=== PATIENT | female | born 2000 | race Hispanic/Latino ===

== ENCOUNTER 2018-05-29 14:02 | Emergency (ER) | payer BC, OTHER ==
--- OUTSIDE RECORDS SUMMARY | 2018-05-29 14:10 | XMS REPORT ---
:2000 [facility] Kavin Waddell. [address] [place] [address] Care Team Providers Name Role Phone Unavailable Unavailable Unavailable Payers Payer Name Policy Type Policy Number Effective Date Expiration Date Problems This patient has no known problems. Allergies, Adverse Reactions, Alerts Allergy Allergy Status Severity Reaction(s) Onset Inactive Treating Comments Name Type Date Date Clinician No Known DA Active U 2018-04 Allergies 18 00:00:0 0 Medications This patient has no known medications. Results Test Description Test Time Test Comments Text Results Atomic Results Result Comments - US PREG NH 2018-05-09 Patient Name: PAM EASTON Unit No: [id number] TRANSVAGINAL 13:02:00 EXAMS: CPT CODE: [id number] PREG NH TRANSVAGINAL [address] [facility] [address], [place] [address] LIMITED OBSTETRICAL ULTRASOUND REPORT Pat. Name: PAM EASTON Pat. No: [id number] Study Date: 05/09/2018 11:33am , Age: 04 2000, 17 Pregnancies: 2, Para 0 LMP: 01/12/2018 GA by LMP: 16w5d GA by US: 15w5d GA Selected: 16w5d (LMP) ANIYA: 10/19/2018 Referring MD: Jaiden Arana Implementation Project Manager: Danielle Webb RDMS, RVT CPT4: USPRUTTRVG Admitting MD: Jaiden Arana Hist/Ind: SCAN 1 VAG. BLEEDING MEASUREMENTS AGE GROWTH EVALUATION Measurement GA Range Srce %for GA Ratios ----- ---- ------- BPD 3.3 cm 15w6d (34j4w-40k2w) Hadl BPD 14% FL/BPD 0.58 HC 12.0 cm 15w6d (42p0b-38y6h) Hadl HC 23% FL/AC 0.18 APD 3.3 cm APD HC/AC 1.16 (1.09 - 1.28) TAD 3.3 cm TAD CI 0.85 (0.70 - 0.86) AC 10.4 cm 16w0d (64j8f-80b3m) Hadl AC 32% FL 1.9 cm 15w3d (32c5h-25f2v) Hadl FL <05 HL 1.9 cm 15w4d (91s9h-39o6p) Leeroy HL 31% GA for sonogram 15w5d (22w0g-33x5g) Weight Estimate: based on (HL,HC,AC,FL) Avg Weight: 142 gm (121-162) Hadlock : 0lbs, 4oz Cervical Length: 4.7 cm Heart Rate: 165 bpm MATERNAL ANATOMY Ovaries LxHxW (cm) Right 1.3 x 1.3 x 2.4 Vol: 2.1cc Left 4.1 x 2.6 x 2.0 Vol: 11.2cc Ovarian Cysts LxHxW (cm) R1: 1.3 x 1.3 x 2.4 Desc: Corpus Luteum CLINICAL SUMMARY Type of Gestation: Wisdom Intrauterine in breech presentation. size is slightly less than expected based on LMP Correlate with office scan and FU US motion and organs seen: [facility] NAME: PAM EASTON Radiology Department PHYS: Jaiden De Leon [address] : 2000 AGE: 17 SEX: [place] [address] LOC: AngelaCECE PHONE #: [phone] EXAM DATE: 05/09/2018 STATUS: DEP ER FAX #: [phone] RAD NO: Page 1 Signed Report (CONTINUED) Patient Name: PAM EASTON Unit No: [id number] EXAMS: CPT CODE: [id number] US PREG UT TRANSVAGINAL [address] <Continued> heart motion seen Placental location: Posterior Right lateral low lying Placental maturity : Grade 1 There is no evidence of placenta previa. Amniotic fluid volume is normal. Uterus and adnexa: No significant abnormalities seen Uterus and adnexa: No sonographic evidence of abruption. Antonia Mendes M.D. Electronic Signature 05/09/2018 01:02pm at 1302 Reported and signed by: Antonia Mendes MD CC: Jaiden Arana MD Technologist: Danielle Webb RDMS, RVT; Kimbe Probe: [id number] Trnscrbd D/ (1302) [email or web address] Orig Print D/T: S: 05/12/2018 (154) [facility] NAME: PAM EASTON Radiology Department PHYS: GUTAL. - Jaiden Arana [address] : 2000 AGE: 17 SEX: F [place] [address] LOC: Doris.ERS PHONE #: [phone] EXAM DATE: 05/09/2018 STATUS: [facility] ER FAX #: [phone] RAD NO: Page 2 Signed Report Patient Name: PAM EASTON Unit No: [id number] EXAMS: CPT CODE: [id number] US PREG UT TRANSVAGINAL [address] <Continued> [facility] NAME: PAM EASTON Radiology Department PHYS: GUTAL.01 - Jaiden Arana [address] : 2000 AGE: 17 SEX: F [place] [address] LOC: Doris.ERS PHONE #: [phone] EXAM DATE: 05/09/2018 STATUS: NESSA ER FAX #: [phone] RAD NO: Page 3 Signed Report - 2018-05-09 Patient Name: PAM EASTON Unit No: [id number] FLW 13:02:00 EXAMS: CPT [place]: [place] [id number] [address] [facility] [address], [place] [address] LIMITED OBSTETRICAL ULTRASOUND REPORT Pat. Name: PAM EASTON Pat. No: [id number] Study Date: 05/09/2018 11:33am , Age: 04 2000, 17 Pregnancies: 2, Para 0 LMP: 01/12/2018 GA by LMP: 16w5d GA by US: 15w5d GA Selected: 16w5d (LMP) ANIYA: 10/19/2018 Referring MD: JAIDEN ARANA Implementation Project Manager: Danielle Webb RDMS, T CPT4: USPREGLTD Admitting MD: JAIDEN ARANA Hist/Ind: SCAN 1 VAG. BLEEDING MEASUREMENTS AGE GROWTH EVALUATION Measurement GA Range Srce %for GA Ratios ----- ---- ------- BPD 3.3 cm 15w6d (24m4g-91e5e) Hadl BPD 14% FL/BPD 0.58 HC 12.0 cm 15w6d (56x4v-46t7b) Hadl HC 23% FL/AC 0.18 APD 3.3 cm APD HC/AC 1.16 (1.09 - 1.28) TAD 3.3 cm TAD CI 0.85 (0.70 - 0.86) AC 10.4 cm 16w0d (84s5r-20a2s) Hadl AC 32% FL 1.9 cm 15w3d (79n5s-08g4w) Hadl FL <05 HL 1.9 cm 15w4d (79o5n-11z5a) Leeroy HL 31% GA for sonogram 15w5d (69r2q-89k6r) Weight Estimate: based on (HL,HC,AC,FL) Avg Weight: 142 gm (121-162) Hadlock : 0lbs, 4oz Cervical Length: 4.7 cm Heart Rate: 165 bpm MATERNAL ANATOMY Ovaries LxHxW (cm) Right 1.3 x 1.3 x 2.4 Vol: 2.1cc Left 4.1 x 2.6 x 2.0 Vol: 11.2cc Ovarian Cysts LxHxW (cm) R1: 1.3 x 1.3 x 2.4 Desc: Corpus Luteum CLINICAL SUMMARY Type of Gestation: Wisdom Intrauterine in breech presentation. size is slightly less than expected based on LMP Correlate with office scan and FU US motion and organs seen: [facility] NAME: JEMMAPAM Radiology Department PHYS: AMANDA. Jaiden Arana [address] : 2000 AGE: 17 SEX: Doris [place], [place] [address] LOC: DIANA PHONE #: [phone] EXAM DATE: 05/09/2018 STATUS: REG ER FAX #: [phone] RAD NO: Page 1 Signed Report (CONTINUED) Patient Name: PAM EASTON Unit No: [id number] EXAMS: CPT CODE: [id number] [address] <Continued> heart motion seen Placental location: Posterior Right lateral low lying Placental maturity : Grade 1 There is no evidence of placenta previa. Amniotic fluid volume is normal. Uterus and adnexa: No significant abnormalities seen Uterus and adnexa: No sonographic evidence of abruption. Antonia Mendes M.D. Electronic Signature 05/09/2018 01:02pm at 1302 Reported and signed by: Antonia Mendes MD CC: Jaiden Arana MD Technologist: Danielle Webb, JAVAN, RVT; Harmony Probe: Trnscrbd D/ (1302) [email or web address] Orig Print D/T: S: 05/09/2018 (1302) [facility]: PAM EASTON Radiology Department PHYS: SINDHU - Jaiden Arana [address] : 2000 AGE: 17 SEX: F [place], [place] [address] LOC: AngelaERS PHONE #: [phone] EXAM DATE: 05/09/2018 STATUS: REG ER FAX #: [phone] RAD NO: Page 2 Signed Report Patient Name: PAM EASTON Unit No: [id number] EXAMS: CPT [place]: [id number] [place] [address] <Continued> [facility]: PAM EASTON Radiology Department PHYS: AMANDA.Otf - Jaiden Arana [address] : 2000 AGE: 17 SEX: [place] [address] LOC: Doris.ERS PHONE #: [phone] EXAM DATE: 05/09/2018 STATUS: REG ER FAX #: [phone] RAD NO: Page 3 Signed Report UA RFLX MICR CULT IF INDICATED 2018-05-09 11:42:00 Test Item Value Reference Range Comments UA COLOR (test code=COLU) STRAW YELLOW UA APPEARANCE (test code=APPU) CLEAR CLEAR UA GLUCOSE DIPSTICK (test code=DGLUU) NEGATIVE NEG UA BILIRUBIN DIPSTICK (test code=BILU) NEGATIVE NEG UA KETONE DIPSTICK (test code=KETU) NEGATIVE NEG UA SPECIFIC GRAVITY (test code=SGU) 1.003 1.001-1.035 UA BLOOD DIPSTICK (test code=DELROY) 1+ NEG UA PH DIPSTICK (test code=TOREY) 7.0 5-9 UA PROTEIN DIPSTICK (test code=PROU) 1+ NEG UA UROBILINIOGEN DIPSTICK (test code=URO) NEGATIVE mg/dL NEG UA NITRITE DIPSTICK (test code=GERONIMO) NEG NEG UA LEUKOCYTE ESTERASE DIPSTICK (test code=LEUU) 1+ NEG UA WBC (test code=WBCU) 0-2 #/hpf NONE SEEN UA RBC (test code=RBCU) 0-2 #/hpf NONE SEEN UA EPITHELIAL CELLS (test code=EPIU) RARE #/HPF RARE-FEW UA BACTERIA (test code=BACU) RARE /HPF RARE-FEW UA MUCUS (test code=MUCU) RARE NONE SEEN CBC W/AUTO [id number] 11:38:00 Test Item Value Reference Range Comments WHITE BLOOD CELL (test code=WBC) 9.9 K/mm3 6.6-12.1 RED BLOOD CELL (test code=RBC) 4.46 M/mm3 3.45-5.01 HEMOGLOBIN (test code=HGB) 13.3 g/dL 10.7-13.9 HEMATOCRIT (test code=HCT) 40.0 % 32.1-42.1 MEAN CELL VOLUME (test code=MCV) 90 fL 84.1-94.8 MEAN CELL HGB (test code=MCH) 29.8 pg 27-35 MEAN CELL HGB CONCETRATION (test code=MCHC) 33.3 gm/dL 32.2-34.1 RED CELL DISTRIBUTION WIDTH (test code=RDW) 12.7 % 12.4-16.5 PLATELET COUNT (test code=PLT) 144 K/mm3 133-385 IMMATURE PLATELET FRACTION (test code=IPF) 0.0 % 0.0-10.8 MEAN PLATELET VOLUME (test code=MPV) 11.1 fl 9.1-12.7 NEUTROPHIL % (test code=NT%) 74.2 % 56.5-79.4 LYMPHOCYTE % (test code=LY%) 16.7 % 14.3-34.3 MONOCYTE % (test code=MO%) 6.9 % 5.1-10.4 EOSINOPHIL % (test code=EO%) 0.6 % 0.1-3.0 BASOPHIL % (test code=BA%) 0.4 % 0.1-1.0 NEUTROPHIL # (test code=NT#) 7.4 K/mm3 LYMPHOCYTE # (test code=LY#) 1.7 K/mm3 MONOCYTE # (test code=MO#) 0.7 K/mm3 EOSINOPHIL # (test code=EO#) 0.06 K/mm3 BASOPHIL # (test code=BA#) 0.0 K/mm3 RBC MORPHOLOGY REQUIRED (test code=RBCM) NORMAL NORMAL PLATELET MORPHOLOGY REQUIRED (test code=PLTMR) NORMAL NORMAL
[2018-05-29 15:38] LABS: Absolute Lymphocytes (CBC) 1.7 K/uL (0.7-4.9); Absolute Monocytes 0.8 K/uL (0.1-1.3); Absolute Neutrophil 7.7 K/uL (1.8-8.0); Basophils % 0.6 % (0-1.3); Eosinophils % 1.1 % (0-4.4); Hematocrit 36.1 % (36.0-45.0); Lymphocytes % 16.4 % (15.3-44.8); MPV 10.4 fL (7.6-11.3); Monocytes % 7.6 % (3.3-12.3); RBC Red Blood Cell Count 4.03 M/uL (3.86-4.86)
[2018-05-29 15:54] LABS: Protime INR 0.97
[2018-05-29 16:05] LABS: ALT/SGPT 34 U/L (12-78); AST/SGOT 27 U/L (15-37); Albumin 2.7 g/dL (3.4-5.0); Alkaline Phosphatase 64 U/L (45-117); BUN Blood Urea Nitrogen 10 mg/dL (7-18); Bicarbonate 22 mmol/L (21-32); Bilirubin Direct < 0.1 mg/dL (0-0.2); Bilirubin Total 0.2 mg/dL (0.2-1.0); Glucose Level 105 mg/dL (74-106); NT PRO-BNP 13 pg/mL (<125); Potassium 3.9 mmol/L (3.5-5.1); Protein, Total 6.4 g/dL (6.4-8.2); Sodium Level 140 mmol/L (136-145); Troponin (Emerg Dept Use Only) 0.02 ng/mL (0.0-0.045)
[2018-05-29 16:11] LABS: Urine Blood TRACE (NEG); Urine Glucose NEGATIVE (NEG); Urine Protein 2+ (NEG); Urine Specific Gravity >1.030 (1.005-1.030); Urine pH 6.5 (5.0-7.0)
[2018-05-29 16:12] LABS: Urine Specific Gravity >1.030 (1.005-1.030)
--- NOTE | 2018-05-29 17:03 | EKG ---
Test Date: 2018-05-29 Test Time: 14:17:37 Helpdesk Analyst: MATHIEU MEASUREMENT RESULTS: Intervals: Rate: 91 UT: 148 QRSD: 82 QT: 334 QTc: 410 Gore: P: 56 UT: 148 QRS: 79 T: 29 INTERPRETIVE STATEMENTS: Normal sinus rhythm Normal ECG No previous ECG available for comparison Electronically Signed On 05-29-18 17:03:17 TRACK GRINDER by Poli Kaiser
[2018-05-29 17:04] LABS: Urine Bacteria 20-50 /HPF (<20); Urine RBC NONE SEEN /HPF (NONE SEEN)
[2018-05-29 17:05] LABS: Urine Culture Reflex Order REFLEXED
--- NOTE | 2018-05-29 17:16 | RAD REPORT ---
EXAM DESCRIPTION: CT - Chest For Pe Angio - 05/29/2018 4:59 pm CLINICAL HISTORY: Chest pain. SOB COMPARISON: No comparisons TECHNIQUE: CT angiogram of the pulmonary arteries was performed with MIP. All CT scans are performed using dose optimization technique as appropriate and may include automated exposure control or mA/KV adjustment according to patient size. FINDINGS: No evidence of pulmonary thromboembolism. No acute aortic finding demonstrated. The lungs are clear. No significant pericardial or pleural fluid. Soft tissue mass is present in the superior anterior med iastinum measuring approximately 4.6 x 3.7 cm. No concerning bony finding. IMPRESSION: No evidence of pulmonary thromboembolism. No acute lung findings. Anterior mediastinal mass is present 4.6 x 3.7 cm. This may be related to thymoma or lymphoma.
--- NOTE | 2018-05-29 17:18 | RAD REPORT ---
EXAM DESCRIPTION: RAD - Chest Single View - 05/29/2018 5:08 pm CLINICAL HISTORY: SOB Chest pain. COMPARISON: <Comparisons> FINDINGS: Portable technique limits examination quality. The lungs are underinflated but grossly clear. The heart is normal in size. No displaced fractures. IMPRESSION: No acute intrathoracic process suspected.
--- NOTE | 2018-05-29 18:42 | EDPHYS ---
Physician Documentation [facility] Name: Oscar Gong Age: 17 yrs Sex: Female : 2000 Arrival Date: 05/29/2018 Time: 14:06 Bed 27 Private MD: ED Physician Sandoval Lakhani HPI: 05/29 18:32 This 17 yrs old Female presents to ER via Ambulatory with complaints of 19 wks wa , Chest Pain, Shortness Of Breath, Headache. 18:32 The patient or guardian reports chest pain that is located primarily in the substernal wa area. The pain does not radiate. Associated signs and symptoms: Pertinent positives: lower extremity swelling, shortness of breath, Pertinent negatives: abdominal pain, cough, dizziness, headache. The chest pain is described as a pressure. Duration: The patient or guardian reports a single episode, that is still ongoing. Modifying factors: The symptoms are alleviated by nothing. the symptoms are aggravated by nothing. Severity of pain: At its worst the pain was moderate in the emergency department the pain is unchanged. The patient has not experienced similar symptoms in the past. The patient has not recently seen a physician. 19 weeks preg. OB - Dr. Phillips. CANNONEER: 14:14 LMP 01/12/2018 Historical: - Allergies: 14:13 No Known Allergies; hj - Home Meds: 14:13 Vitamin Oral [Active]; hj - PMHx: 14:13 None; hj - PSHx: 14:13 Cholecystectomy; Tonsillectomy; hj - Immunization history:: Adult Immunizations up to date. - Social history:: Smoking status: Patient/guardian denies using tobacco, Patient/guardian denies using alcohol. - Ebola Screening: : Patient negative for fever greater than or equal to 101.5 degrees Fahrenheit, and additional compatible Ebola Virus Disease symptoms Patient denies exposure to infectious person Patient denies travel to an Ebola-affected area in the 21 days before illness onset. - Family history:: not pertinent. - Hospitalizations: : No recent hospitalization is reported. ROS: 18:34 Constitutional: Negative for fever, chills, and weight loss, Eyes: Negative for injury, wa pain, redness, and discharge, ENT: Negative for injury, pain, and discharge, Neck: Negative for injury, pain, and swelling, Abdomen/GI: Negative for abdominal pain, nausea, vomiting, diarrhea, and constipation, Back: Negative for injury and pain, : Negative for injury, bleeding, discharge, and swelling, Skin: Negative for injury, rash, and discoloration, Neuro: Negative for headache, weakness, numbness, tingling, and seizure, Psych: Negative for depression, anxiety, suicide ideation, homicidal ideation, and hallucinations. 18:34 Cardiovascular: Positive for chest pain, edema, Negative for orthopnea, palpitations. 18:34 Respiratory: Positive for shortness of breath, at rest. Negative for cough, hemoptysis, orthopnea, pleurisy, wheezing. 18:34 All other systems are negative. Exam: 18:35 Constitutional: This is a well developed, well nourished patient who is awake, alert, wa and in no acute distress. Head/Face: Normocephalic, atraumatic. Eyes: Pupils equal round and reactive to light, extra-ocular motions intact. Lids and lashes normal. Conjunctiva and sclera are non-icteric and not injected. Cornea within normal limits. Periorbital areas with no swelling, redness, or edema. ENT: Nares patent. No nasal discharge, no septal abnormalities noted. Tympanic membranes are normal and external auditory canals are clear. Oropharynx with no redness, swelling, or masses, exudates, or evidence of obstruction, uvula midline. Mucous membranes moist. Neck: Trachea midline, no thyromegaly or masses palpated, and no cervical lymphadenopathy. Supple, full range of motion without nuchal rigidity, or vertebral point tenderness. No Meningismus. Chest/axilla: Normal chest wall appearance and motion. Nontender with no deformity. No lesions are appreciated. Abdomen/GI: Soft, non-tender, with normal bowel sounds. No distension or tympany. No guarding or rebound. No evidence of tenderness throughout. Back: No spinal tenderness. No costovertebral tenderness. Full range of motion. Skin: Warm, dry with normal turgor. Normal color with no rashes, no lesions, and no evidence of cellulitis. Neuro: Awake and alert, GCS 15, oriented to person, place, time, and situation. Cranial nerves II-XII grossly intact. Motor strength 5/5 in all extremities. Sensory grossly intact. Cerebellar exam normal. Normal gait. Psych: Awake, alert, with orientation to person, place and time. Behavior, mood, and affect are within normal limits. 18:35 Cardiovascular: Rate: normal, Rhythm: regular, Pulses: no pulse deficits are appreciated, Heart sounds: normal, Edema: is not appreciated, JVD: is not appreciated. 18:35 Respiratory: the patient does not display signs of respiratory distress, Respirations: normal, Breath sounds: are clear throughout, Respiratory rate: normal 18:35 Musculoskeletal/extremity: Extremities: grossly normal except: 1+ edema bilateral ankles. Vital Signs: 14:14 BP 131 / 63; Pulse 97; Resp 18; Temp 98.5(TE); Pulse Ox 99% on R/A; Weight 81.19 kg; hj Height 5 ft. 1 in. (154.94 cm); Pain 6/10; 15:41 BP 126 / 54; Pulse 79; Resp 18; Pulse Ox 100% on R/A; Pain 5/10; mg2 17:31 BP 122 / 62; Pulse 93; Resp 18; Pulse Ox 100% on R/A; mg2 18:01 BP 123 / 47; Pulse 89; Resp 18; Pulse Ox 100% on R/A; mg2 18:59 BP 133 / 87; Pulse 100; Resp 18; Pulse Ox 100% on R/A; mg2 20:10 BP 119 / 48; Pulse 102; Resp 18; Pulse Ox 100% on R/A; mg2 14:14 Body Mass Index 33.82 (81.19 kg, 154.94 cm) MDM: 15:52 Patient medically screened. sd 18:36 Differential diagnosis: G2,P1 at 19 weeks with chest pain and SOB. r/o PE. r/o wa pre-eclampsia. pt's BP mildly elevated. Data reviewed: vital signs, nurses notes. Test interpretation: by ED physician or midlevel provider: labs noted for 2+ proteinuria and low platelets. CXR nml. CT chest: no PE. 4.6 cm by 3.7 cm mediastinal mass. . Special discussion: concern for pre-eclampsia on this 19 week woman with proteinuria and low platelets. also mediastinal mass. I have put a call out to her OB Dr. Phillips. Awaiting a call back. Needs higher level of care. 19:25 Special discussion: accepted at [facility] for further eval. family advised. sd awaiting transport. 05/30 20:36 Test interpretation: by ED physician or midlevel provider: EKG: interpreted by me: CARLA sd 91. nml sinus. nml axis. no acute dysrhythmia . 05/29 15:20 Order name: Basic Metabolic Panel; Complete Time: 16:23 mg2 05/29 15:20 Order name: CBC with Diff; Complete Time: 16:23 mg2 05/29 15:20 Order name: LFT's; Complete Time: 16:23 mg2 05/29 15:20 Order name: Magnesium; Complete Time: 16:22 mg2 05/29 15:20 Order name: NT PRO-BNP; Complete Time: 16:22 mg2 05/29 15:20 Order name: PT-INR; Complete Time: 16:22 mg2 05/29 15:20 Order name: Troponin (emerg Dept Use Only); Complete Time: 16:22 mg2 05/29 15:29 Order name: Urine Dipstick--Ancillary (enter results); Complete Time: 16:23 05/29 15:30 Order name: Urine --Ancillary (enter results); Complete Time: 16:22 05/29 16:24 Order name: Urine Microscopic Only; Complete Time: 17:42 sd 05/29 16:25 Order name: Chest Single View XRAY; Complete Time: 17:42 sd 05/29 16:25 Order name: CT Chest For PE Angio; Complete Time: 17:41 sd 05/29 17:10 Order name: Urine Culture [facility] 05/29 14:17 Order name: EKG; Complete Time: 14:17 05/29 15:20 Order name: Cardiac monitoring; Complete Time: 15:32 mg2 05/29 15:20 Order name: EKG - Nurse/Tech; Complete Time: 15:32 mg2 05/29 15:20 Order name: IV Saline Lock; Complete Time: 15:32 mg2 05/29 15:20 Order name: Labs collected and sent; Complete Time: 15:32 mg2 05/29 15:20 Order name: O2 Per Protocol; Complete Time: 15:32 mg2 05/29 15:20 Order name: O2 Sat Monitoring; Complete Time: 15:32 mg2 05/29 18:33 Order name: FHT's; Complete Time: 18:47 iw Administered Medications: No medications were administered Disposition: 05/29/18 18:41 Transfer ordered to Other Acute Care Facility. Diagnosis are Acute Chest Pain, Acute Dyspnea, Pre-eclampsia. - Reason for transfer: Higher level of care. - Accepting physician is [facility]. - Condition is Stable. - Problem is new. - Symptoms are unchanged. Signatures: Dispatcher [employer] EDDeepa Santiago RN ANDRIA iw Mario Lee RN RN hj Appiah, William, MD MD wa Gardose, Michele, RN RN mg2 Corrections: (The following items were deleted from the chart) 05/29 15:46 15:21 Chest Single View+RAD.RAD.BRZ ordered. [facility] 20:57 18:41 05/29/2018 18:41 Transfer ordered to Other Acute Care Facility. Diagnosis is mg2 Acute Chest Pain; Acute Dyspnea; Pre-eclampsia. Reason for transfer: Higher level of care. Accepting physician is [facility]. Condition is Stable. Problem is new. Symptoms are unchanged. lavelle
--- NOTE | 2018-05-29 18:42 | ER ---
Nurse's Notes [facility] Name: Oscar Gong Age: 17 yrs Sex: Female : 2000 Arrival Date: 05/29/2018 Time: 14:06 Bed 27 Private MD: Diagnosis: Acute Chest Pain;Acute Dyspnea;Pre-eclampsia Presentation: 05/29 14:10 Presenting complaint: Patient states: LMP- 01/12/18; when i got to work today, i had a hj bad chest pain; BP- 132/70; took Tylenol and did not help and chest pain is getting worse;,reports SOB; heavy, pressure type pain; radiates to the mid back;. Transition of care: patient was not received from another setting of care. Onset of symptoms was May 29, 2018. Risk Assessment: Do you want to hurt yourself or someone else? Patient reports no desire to harm self or others. Initial Sepsis Screen: Does the patient meet any 2 criteria? No. Patient's initial sepsis screen is negative. Does the patient have a suspected source of infection? No. Patient's initial sepsis screen is negative. Care prior to arrival: None. 14:10 Method Of Arrival: Ambulatory 14:10 Acuity: DAVID 3 Triage Assessment: 14:13 General: Appears in no apparent distress. uncomfortable, Behavior is calm, cooperative, hj appropriate for age. Pain: Complains of pain in chest. Cardiovascular: Capillary refill < 3 seconds Patient's skin is warm and dry. Chest pain. 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 - Social history:: Smoking status: Patient/guardian denies using tobacco, Patient/guardian denies using alcohol. - Ebola Screening: : Patient negative for fever greater than or equal to 101.5 degrees Fahrenheit, and additional compatible Ebola Virus Disease symptoms Patient denies exposure to infectious person Patient denies travel to an Ebola-affected area in the 21 days before illness onset. - Family history:: not pertinent. - Hospitalizations: : No recent hospitalization is reported. Screenin:13 Abuse screen: Denies threats or abuse. Denies injuries from another. Nutritional hj screening: No deficits noted. Tuberculosis screening: No symptoms or risk factors identified. Fall Risk None identified. Assessment: 14:16 Pain: Pain radiates to back Pain began 4 hours ago. this AM. hj 15:38 General: Appears in no apparent distress. comfortable, Behavior is calm, cooperative. mg2 Pain: Pain: Complains of pain in chest Pain radiates to back Pain currently is 5 out of 10 on a pain scale. Quality of pain is described as aching, Pain began \T\ 0730H today Is intermittent. 15:40 Neuro: Level of Consciousness is awake, alert, obeys commands, Oriented to person, mg2 place, time, situation. Cardiovascular: Capillary refill < 3 seconds Patient's skin is warm and dry. Cardiovascular: Reports chest pain, shortness of breath. Respiratory: Airway is patent Respiratory effort is even, unlabored, Respiratory pattern is regular, symmetrical. GI: No signs and/or symptoms were reported involving the gastrointestinal system. : No signs and/or symptoms were reported regarding the genitourinary system. EENT: No signs and/or symptoms were reported regarding the EENT system. Derm: Skin is intact, is healthy with good turgor, Skin is pink, warm \T\ dry. normal. Musculoskeletal: Circulation, motion, and sensation intact. Capillary refill < 3 seconds. 17:00 Reassessment: patient sent to ct scan. mg2 19:17 Reassessment: patient informed about the need for transfer, patient agreed about the mg2 plan. 20:10 Reassessment: report called to ANDRIA Gage ,ED of [facility]. transfer mg2 form signed by the patient. Vital Signs: 14:14 BP 131 / 63; Pulse 97; Resp 18; Temp 98.5(TE); Pulse Ox 99% on R/A; Weight 81.19 kg; hj Height 5 ft. 1 in. (154.94 cm); Pain 6/10; 15:41 BP 126 / 54; Pulse 79; Resp 18; Pulse Ox 100% on R/A; Pain 5/10; mg2 17:31 BP 122 / 62; Pulse 93; Resp 18; Pulse Ox 100% on R/A; mg2 18:01 BP 123 / 47; Pulse 89; Resp 18; Pulse Ox 100% on R/A; mg2 18:59 BP 133 / 87; Pulse 100; Resp 18; Pulse Ox 100% on R/A; mg2 20:10 BP 119 / 48; Pulse 102; Resp 18; Pulse Ox 100% on R/A; mg2 14:14 Body Mass Index 33.82 (81.19 kg, 154.94 cm) hj Vitals: 18:45 Heart Tones 150. tl3 ED Course: 14:06 Patient arrived in ED. mr 14:12 Triage completed. hj 14:14 Arm band placed on left wrist. hj 14:14 Patient has correct armband on for positive identification. Placed in gown. Bed in low hj position. Call light in reach. Side rails up X 1. Adult w/ patient. shelter monitor on. 14:16 Patient maintains SpO2 saturation greater than 95% on room air. hj 14:28 EKG done, by equipment maintenance technician. reviewed by Sandoval Lakhani MD. sm3 15:18 Nikolay Nick, RN is Primary Nurse. mg2 15:20 Urine collected: clean catch specimen, clear, shirley colored. jp3 15:37 Urine --Ancillary (enter results) Sent. jp3 15:37 Urine Dipstick--Ancillary (enter results) Sent. jp3 15:41 No provider procedures requiring assistance completed. Inserted saline lock: 20 gauge mg2 in right antecubital area, using aseptic technique. Blood collected. 15:52 Sandoval Lakhani MD is Attending Physician. wa 16:39 Urine Microscopic Only Sent. mg2 16:[address] via stretcher. vm2 16:59 CT Chest For PE Angio In Process Unspecified. EDMS 16:59 CT completed. Patient tolerated procedure well. Patient moved to radiology. vm2 17:10 Chest Single View XRAY In Process Unspecified. 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 Kar goldman for patient transfer consultation. 20:50 Patient transferred, IV remains in place. mg2 Administered Medications: No medications were administered Outcome: 18:41 ER care complete, transfer ordered by . wa 20:50 Transferred by ground EMS Transfer form completed. Note: to [facility], mg2 [place] 20:50 Condition: stable 20:50 Instructed on the need for transfer, Demonstrated understanding of instructions. 20:57 Patient left the ED. mg2 Signatures: Dispatcher [employer] Jody BushMario, RN RN QuiñonesRadha chi 2 Sandoval Lakhani MD MD wa Lowrey, Tammy, RN RN tl3 Magda Persaud Michele, RN RN [facility] Rae Gee 3 Ronen Mckeon jp3 Corrections: (The following items were deleted from the chart) 14:16 14:14 Pulse 97bpm; Resp 18bpm; Pulse Ox 99% RA; Temp 98.5F Temporal; 81.19 kg; Height 5 hj ft. 1 in.; BMI: 33.8; Pain 6/10; hj 15:41 15:38 Pain: mg2 mg2
== END 2018-05-29 20:57 ==
LOC: ER 14:02
DX: O14.92 Unspecified pre-eclampsia, second trimester (principal); Z3A.19 19 weeks gestation of pregnancy
CPT/HCPCS: 36415; 71045; 71275; 80048; 80076; 81003; 81015; 81025; 83735; 83880; 84484; 85025; 85610; 87086; 87088; 93005; 99285; Q9967

== ENCOUNTER 2019-04-15 19:56 | Emergency (ER) | payer BC, OTHER ==
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
--- OUTSIDE RECORDS SUMMARY | 2019-04-15 19:58 | XMS REPORT | Summary of Care ---
:2000 Author Organization [facility] Address [address] [place] [address] Care Team Providers Name Role Phone Garry Ibarra MD Primary Care Provider Reason for Visit Reason Comments Follow-up Hypertension Depression Refill Request Encounter Details Date Type Department Care Team Description 12/24/2018 Office Visit [facility] Family Garry Ibarra, Essential hypertension (Primary Dx); Medicine - Mary FISH Eczema, unspecified type [address] [place] [id number] [place], [place] [phone] Allergies No Known Allergiesdocumented as of [...] 2 (two) times daily. 20 tablet 0 Wkygezqlav-Ifdxxdlwuhbzx-Nlwr (FIORICET) 50-300-40 mg per capsule Take 1 [...] file Gets together: Not on file Attends scientologist service: Not on file Active member of [...] Phone Address Type / Group BCBS OF [facility] [id number] 2011-Estelle [phone] [address] PPO/POS [place] [id number] [place] [address] documented as of this encounter"
--- OUTSIDE RECORDS SUMMARY | 2019-04-15 19:58 | XMS REPORT | Summary of Care ---
:2000 Author Organization [facility] [place] [address] Care Team Providers Name Role Phone Unavailable Primary Care Provider Unavailable Reason for Visit Reason Comments Establish Care Encounter Details Date Type Department Care Team Description 02/24/2019 Office Visit [facility] Diana Lr DO Establish Care Medicine Nephrology [address] Floor; [address] [place] [address] [place] [address] Allergies Active Allergy Reactions Severity Noted Date Comments Acetaminophen-Codeine Hives, Rash High 01/27/2019 documented as of this encounter (statuses as of 02/25/2019) Medications Medication Sig Dispensed Refills Start Date End Date Status escitalopram (LEXAPRO) 10 Take 10 mg by 0 10/01/2018 Active MG tablet mouth. Cholecalciferol (VITAMIN D Take by 0 Active OR) mouth. Cyanocobalamin (VITAMIN B Take by 0 Active 12 OR) mouth. documented as of this encounter (statuses as of 02/25/2019) Active Problems Problem Noted Date Autoimmune disorder (HCCode) Preeclampsia BP (high blood pressure) Anxiety Hearing loss documented as of this encounter (statuses as of 02/25/2019) Social History Tobacco Use Types Packs/Day Years Used Date Never Smoker Smokeless Tobacco: Never Used Alcohol Use Drinks/Week oz/Week Comments Never Alcohol Habits Answer Date Recorded How often do you have a drink containing alcohol? Never 01/27/2019 How many drinks containing alcohol do you have on a typical Not asked day when you are drinking? How often do you have six or more drinks on one occasion? Not asked Sex Assigned at Date Recorded Not on file Job Start Date Occupation Industry Not on file Not on file Not on file Travel History Travel Start Travel End No recent travel history available. documented as of this encounter Last Filed Vital Signs Vital Sign Reading Time Taken Comments Blood Pressure 139/86 02/24/2019 3:03 PM [employer] Pulse 99 02/24/2019 3:03 PM [employer] Temperature 36.7 C (98 F) 02/24/2019 3:03 PM [employer] Respiratory Rate 16 02/24/2019 3:03 PM [employer] Oxygen Saturation - - Inhaled Oxygen Concentration - - Weight 89.9 kg (198 lb 3.2 oz) 02/24/2019 3:03 PM [employer] Height 160 cm (5' 3") 02/24/2019 3:03 PM [employer] Body Mass Index 35.11 02/24/2019 3:03 PM [employer] documented in this encounter Patient Instructions Patient InstructionsDiana Lr DO - 02/24/2019 3:40 PM CST Patient Education [facility] Proteinuria: Care Instructions Your Care Instructions Proteinuria means that you have too much protein in your urine. This is usually caused by a kidney problem. Your body's blood passes through your kidneys. Normally, the kidneys remove waste from the blood. The waste then leaves the body in the urine. But they don' t let protein leave the body. If your kidneysare not working well, they let too much protein get in your urine. A high level of protein in your urine is a sign that something is harming your kidneys. It may be puzzling to find out that you have a problem with your kidneys, because you probably don'tfeel different. Your doctor may do more tests to find out what is causing the protein to get into your urine. Possible causes include an infection or a medical condition, such as diabetes or heart disease. You may need regular urine tests in the future. You may be able to reduce the protein in your urine by getting exercise , eating a healthy diet, and taking medicine. Follow-up care is a alcantar part of your treatment and safety. Be sure to make and go to all appointments, and call your doctor if you are having problems. It's also a good idea to know your test results and keep a list of the medicines you take. How can you care for yourself at home? Take your medicines exactly as prescribed. Call your doctor if you think you are having a problemwith your medicine. You will get more details on the specific medicines your doctor prescribes. Work with your doctor and dietitian to set up a diet that will be healthy for you. You may need to: ? Eat a heart-healthy diet to keep the fat (cholesterol) in your blood under control. ? Eat a low-salt diet to keep your blood pressure at normal levels. ? Limit protein in your foods. ? Limit the amount of fluids you drink. If you have diabetes, try to keep your blood sugar at normal or near-normal levels. ? Follow your diet. Eat a variety of foods. Spread carbohydrate throughout your meals. ? If your doctor recommends it, get more exercise. Walking is a good choice. Bit by bit, increase the amount you walk every day. Try for at least 30 minutes on most days of the week. ? Check your blood sugar as often as your doctor recommends. Do not smoke. Smoking raises your risk of many health problems, including kidney damage. If you need help quitting, talk to your doctor about stop- smoking programs and medicines. These can increase your chances of quitting for good. Do not take ibuprofen, naproxen, acetaminophen (Tylenol), or similar medicines, unless your doctor tells you to. These medicines may make kidney problems worse. Check with your doctor before you take any herbal supplements or over-the- counter medicines. When should you call for help? Watch closely for changes in your health, and be sure to contact your doctor if: You do not get better as expected. Where can you learn more? Go to [email or web address] Click on the magnifying glass tab, and enter G964 in the search box to learn more about "Proteinuria: Care Instructions." Current as of: August 31, 2016 Content Version: 11.7 0858-6160 [employer]. Care instructions adapted under license by [facility]. If you have questions about a medical condition or this instruction, always ask your healthcare professional. [employer] disclaims any warranty or liability for your use of this information. [employer] documented in this encounter Progress Notes Diana Lr DO - 02/24/2019 3:40 PM CST Date: February 24, 2019 Patient Name: Oscar Gong Patient Date of : 2000 Chief Complaint: Chief Complaint Patient presents with [facility] Care History: History of Present Illness: Oscar Gong is a 18 y.o. female with PMHX of PMHX of ?Autoimmune disease, hearing loss, preeclampsia vs HELLP during , history of miscarriage, who presents for evaluation of persistent proteinuria proteinuria. Reports that she has had two prior pregnancies in the past-first one ended with miscarriage in 6 weeks. 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 She was due for biopsy of this, however, at 23 weeks gestation she started feeling unwell and presented to the hospital with vague neurological symptoms. Noted to have HTN , proteinuria, transaminitis and thrombocytopenia during her hospitalization. Worked up for myasthenia gravis given concern for bulbar weakness and mediastinal mass. EMG/NCS with no evidence of MG or other neuromuscular blockade. Induced and delivered her baby at 24 weeks due to complication with BP, thrombocytopenia and transaminitis, however, her baby passed two days later. Labs in June 2018 reviewed in Care Everywhere at the time of her as follows:\\cf2 NegativeANA and DNA Ab, normal C3, low C4, high cardiolipin IgG and IgM, high beta 2 glycoprotein 1 Ab, IgG.Normal Beta-2glycoprotein 1 Ab IgM. High PTT lupus anticoagulant and DRVVT. DRVVT/DRVVC ratio high. Negative HIV, hepatitis B, hep C. serum creatinine 0.6 mg/dL. 24 hour urine protein- 1.3L urine volume with 2.5g protein excretion. UA with 2+ protein and no active sediment.\\cf2 Unclear as to what her underlying autoimmune process is. She has heard diagnosis of both SLE and APS. She states that she has had YOCASTA positivity , +cardiolipin Ab, and positive RPR in her workup previously. Confirmatory test for RPR was negative. Denies any facial rash, but does state that she has noticed a rash on her chest previously. No joint pain. 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 Patient is currently being worked up by rheumatology in the community for SLE vs APS diagnosis. Unsure as to what tests have been repeated. Other pertinent hx:\\cf2 Has hx of vesicoureteral reflex as a child that was treated with surgery. Per [facility] chart review-Patient had grade 2/1 reflux in 2003 ( age 1) with normal perfusion Nuclear study at that time. No problems with her kidneys since her surgery. No family hx of any kidney disorders. Has not been taking her BP religiously at home, but when she checks it-it has been running in the low to mid 130s/80s. Denies any NSAID use. No herbal supplements. No hematuria, recent edema in her lower extremities (had noted this when she was ), dysuria, fever, chills , n/v, sob, chest pain. Currently, denies any fever, chills, n/v, sob, chest pain, lower extremity edema. Current Medications: Current Outpatient Medications Medication Sig Dispense Refill Cholecalciferol (VITAMIN D OR) Take by mouth. Cyanocobalamin (VITAMIN B 12 OR) Take by mouth. escitalopram (LEXAPRO) 10 MG tablet Take 10 mg by mouth. No current facility-administered medications for this visit. Allergies: Allergies Allergen Reactions Tylenol With Codeine #3 [Acetaminophen-Codeine] Hives and Rash Past Medical History: Past Medical History: Diagnosis Date Abnormal Pap smear of cervix Anemia Anxiety Autoimmune disorder (HCCode) BP (high blood pressure) [facility]) [facility] Hearing loss Migraine Past Surgical History: Past Surgical History: Procedure Laterality Date HX SECTION HX CHOLECYSTECTOMY HX KIDNEY SURGERY Social History: Social History Tobacco Use Smoking status: Never Smoker Smokeless tobacco: Never Used Substance Use Topics Alcohol use: Never Frequency: Never Family History: Family History Problem Relation Name Age of Onset Diabetes Father High Cholesterol Father Review of Systems: A full 10-system review of systems was performed and was negative unless stated otherwise in the HPI. Examination: BP 139/86 (BP Location: right arm, Patient Position: Sitting, Cuff Size: regular ) | Pulse 99 | Temp 98 F (36.7 C) | Resp 16 | Ht 5' 3" (1.6 m) | Wt 198 lb 3.2 oz (89.9 kg) | LMP 02/05/2019 |BMI 35.11 kg/m General appearance - alert, well appearing, and in no distress Mental Status - alert, oriented to person, place, and time Eyes - pupils equal and reactive, extraocular eye movements intact Throat - mucous membranes moist, pharynx normal without lesions Neck - supple, no significant adenopathy Thyroid - thyroid is normal in size without nodules or tenderness Chest - clear to auscultation, no wheezes, rales or rhonchi, symmetric air entry Heart - normal rate, regular rhythm, normal S1, S2, no murmurs, rubs, clicks or gallops Abdomen - soft, nontender, nondistended, no masses or organomegaly Back exam - full range of motion, no tenderness, palpable spasm or pain on motion Neurological - alert, oriented, normal speech, no focal findings or movement disorder noted Musculoskeletal - no joint tenderness, deformity or swelling Extremities - peripheral pulses normal, no pedal edema, no clubbing or cyanosis Skin - normal coloration and turgor, no rashes, no suspicious skin lesions noted Data: Laboratory Testing: Reviewed in [facility] Radiology Studies: Reviewed in [facility] Impression: Oscar Gong is a 18 y.o. female with There is no problem list on file for this patient. Plan: 1. Proteinuria-patient continues to have 2+ proteinuria in her UA. Strong suspicion for underlying autoimmune process that may be currently affecting her organs including the kidney. Given positive testing for aPL during and given her hx, concern for antiphospholipid syndrome is high on the differential. However, repeat testing needs to be performed as it is well over 12 weeks to confirm persistence of the positivity of these tests. Will need rheumatology/hematology records to see if this has been performed. Other differential to include LN. Will repeat CBC, CMP, UA, UPC, and complements to see if there is any active sediment, hemolysis, significant proteinuria present. If any of this ispositive, patient will likely benefit from a renal biopsy. Risks and benefits were discussed in detail with patient and her mother today who are in agreement. Nonetheless, patient is at high risk for CKD given hx of preeclampsia. Will need close observation for now.\\cf2 -recommend avoiding NSAIDs or any other nephrotoxic agents -renal u/s reviewed with normal size and no hydronephrosis present 2. HTN-in light of proteinuria and potential kidney disease, goal BP is <130/ 80. Patient is almost at goal currently off any anti-hypertensive agents. Recommend lifestyle changes including low salt diet diet and exercise to see if we can manage this conservatively. 2. Electrolytes: check labs 3. Acid-base: check labs 4. Volume: euvolemic 5. Heme: acceptable 6. CKD-MBD: check labs 7. Nutrition: low salt diet 8. Education: Pt was educated on kidney disese The plan was discussed with the patient who verbalized understanding. F/U in 6 weeks Thank you for referring this patient for consultation and allowing me to participate in her care. Please do not hesitate to call with any questions. Diana Lr DO [facility] Division of Nephrology [facility] Office number: [phone] documented in this encounter Plan of Treatment Date Type Specialty Care Team Description 03/17/2019 Office Visit Urology Lambert Bass MD [address] [facility] [address], [place] [address] 04/02/2019 Office Visit Nephrology Diana Lr DO [address] [facility] [address]th [place] [address] [place] [address] Name Type Priority Associated Diagnoses Order Schedule CBC W/AUTO DIFF WITH Lab Routine Other proteinuria Ordered: 02/24/2019 PLATELETS [facility]immune disorder [facility] Essential hypertension COMPREHENSIVE METABOLIC Lab Routine Other proteinuria Ordered: 02/24/2019 PANEL Autoimmune disorder [facility] Essential hypertension C3 COMPLEMENT Lab Routine Other proteinuria Ordered: 02/24/2019 Autoimmune disorder (HCCode) Essential hypertension C4 COMPLEMENT Lab Routine Other proteinuria Ordered: 02/24/2019 [facility] disorder [facility] Essential hypertension URINALYSIS AUTO W/SCOPE Lab Routine Other proteinuria Ordered: 02/24/2019 Autoimmune disorder (HCCode) Essential hypertension RANDOM URINE Lab Routine Other proteinuria Ordered: 02/24/2019 PROTEIN/CREATININE Autoimmune disorder (HCCode) Essential hypertension UREA NITROGEN, 24 HOUR Lab Routine Other proteinuria Ordered: 02/24/2019 URINE [facility]immune disorder [facility] Essential hypertension PROTEIN, 24 HR URINE Lab Routine Other proteinuria Ordered: 02/24/2019 Autoimmune disorder (HCCode) Essential hypertension CREATININE, 24HR URINE Lab Routine Other proteinuria Ordered: 02/24/2019 Autoimmune disorder (HCCode) Essential hypertension Health Maintenance Due Date Last Done Comments TETANUS SHOT (ADULT) 2013 BMI FOLLOW UP PLAN 2016 HIV SCREENING 2016 FLU VACCINE > 6 MONTHS 11/20/2018 documented as of this encounter Results Not on filedocumented in this encounter Visit Diagnoses Diagnosis Other proteinuria - Primary Autoimmune disorder (HCCode) Autoimmune disease, not elsewhere classified Essential hypertension Unspecified essential hypertension documented in this encounter Insurance Payer Benefit Plan / Subscriber ID Effective Dates Phone Address Type Group [place] [place] P[employer]/EPO - BCBS xxxxxxxxxxxx 2018-Present [address] [place] [address] documented as of this encounter
--- OUTSIDE RECORDS SUMMARY | 2019-04-15 19:58 | XMS REPORT | Summary of Care ---
:2000 Author Organization [facility] [place] [address] Care Team Providers Name Role Phone Unavailable Primary Care Provider Unavailable Reason for Referral Consult, Test & Treat (Routine) Status Reason Specialty Diagnoses / Referred By Referred To Procedures Contact Contact Pending Consult, Test, Nephrology Diagnoses Proteinuria, unspecified type proteinuria, unspecified type Lambert Bass Nephrology and Treat Procedures MD OFFICE OUTPATIENT NEW 30 MINUTES MD Lydia [address] [place] [address] 8th [address]; [address], [address] [place] [id number] Phone: Radiology Services (Routine) Status Reason Specialty Diagnoses / Referred By Contact Referred To Procedures Contact E-Auth Not Radiology Diagnoses Proteinuria, unspecified type Lambert Bass Us Imaging Needed Procedures US RENAL BILATERAL MD Lydia [address], [address] [address] [place] [address] Phone: Reason for Visit Reason Comments Medical Concern Encounter Details Date Type Department Care Team Description 01/27/2019 Office Visit [facility] Lambert Bass, Medical Concern Medicine Urology [address] [place] [address] 10th Floor, [address], [place] [address] [place] [address] Allergies Active Allergy Reactions Severity Noted Date Comments Acetaminophen-Codeine Hives, Rash High 01/27/2019 documented as of this encounter (statuses as of 01/27/2019) Medications Medication Sig Dispensed Refills Start Date End Date Status escitalopram (LEXAPRO) 10 Take 10 mg by 0 10/01/2018 Active MG tablet mouth. Cholecalciferol (VITAMIN D Take by 0 Active OR) mouth. Cyanocobalamin (VITAMIN B Take by 0 Active 12 OR) mouth. documented as of this encounter (statuses as of 01/27/2019) Active Problems Not on filedocumented as of this encounter (statuses as of 01/27/2019) Social History Tobacco Use Types Packs/Day Years [...] Sign Reading Time Taken Comments Blood Pressure 140/82 01/27/2019 11:59 AM CDT Pulse 88 01/27/2019 11:59 AM CDT Temperature 37 C (98.6 F) 01/27/2019 11:59 AM CDT Respiratory Rate - - Oxygen Saturation - - Inhaled Oxygen Concentration - - Weight 86.2 kg (190 lb) 01/27/2019 11:59 AM CDT Height 160 cm (5' 3") 01/27/2019 11:59 AM CDT Body Mass Index 33.66 01/27/2019 11:59 AM CDT documented in this encounter Progress Notes Sarah Yousif, FLETCHER - 01/27/2019 12:22 PM CDT HPI Review of Systems Constitutional: Positive for appetite change, chills, fatigue and fever. HENT: Positive for ear pain and hearing loss. Eyes: Positive for visual disturbance. Respiratory: Positive for chest tightness and shortness of breath. Cardiovascular: Positive for chest pain and palpitations. Gastrointestinal: Positive for abdominal pain and diarrhea. Endocrine: Positive for heat intolerance. Genitourinary: Negative. Musculoskeletal: Positive for back pain, neck pain and neck stiffness. Skin: Positive for rash. Allergic/Immunologic: Negative. Neurological: Positive for dizziness, light-headedness and headaches. Hematological: Bruises/bleeds easily. Psychiatric/Behavioral: Positive for decreased concentration and sleep disturbance. The patient is nervous/anxious. All other systems reviewed and are negative. Physical Exam Lambert Guadalupe MD - 01/27/2019 11:40 AM CDT Referring Physician Mike Loredo [address] [place] [address] Patient Name: Oscar Gong :2000 [facility] ID#:[id number] Ms. Gong is a 18 y.o. year old female who present to me for evaluation. Pt was noted initially to have proteinuria in urine when . Then found to have a mass in chest and low platelets--was induced early at 24wks and child two days later. 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 Pt with recent temp to 100 and bilateral flank pain. Nocturia 1- 2x, freq q2hr, no urgency, no urge incontinence, + [place]. Pt had UTI last March-April. x 1. + dyspareunia recently. No h/o kidney stones. Past Medical History: Diagnosis Date Abnormal Pap smear of cervix Anemia Anxiety Autoimmune disorder ([facility]) BP (high blood pressure) [facility] Hearing loss Migraine Past Surgical History: Procedure Laterality Date HX SECTION HX CHOLECYSTECTOMY HX KIDNEY SURGERY Medications Outpatient Medications Prior to Visit Medication Sig Dispense Refill Cholecalciferol (VITAMIN D OR) Take by mouth. Cyanocobalamin (VITAMIN B 12 OR) Take by mouth. escitalopram Take 10 mg by mouth. No facility-administered medications prior to visit. Current Outpatient Medications: Cholecalciferol (VITAMIN D OR), Take by mouth., Disp: , Rfl: Cyanocobalamin (VITAMIN B 12 OR), Take by mouth., Disp: , Rfl: escitalopram (LEXAPRO) 10 MG tablet, Take 10 mg by mouth., Disp: , Rfl: Social History Socioeconomic History Marital status: Single [...] Not on file Tobacco Use Smoking status: Never Smoker Smokeless tobacco: Never Used Substance and Sexual Activity Alcohol use: Never Frequency: Never Drug use: Not on file Sexual activity: Not on file Lifestyle Physical activity: Days per week: Not on file Minutes per session: Not on file Stress: Not on file Relationships Social connections: Talks on phone: Not on file Gets together: Not on file Attends holiness service: Not on file Active member of club or organization: Not on file Attends meetings of clubs or organizations: Not on file Relationship status: Not on file Intimate partner violence: Fear of current or ex partner: Not on file Emotionally abused: Not on file Physically abused: Not on file Forced sexual activity: Not on file Other Topics Concerns: Not on file Social History Narrative Not on file family history includes Diabetes in her father; High Cholesterol in her father. Allergies Allergen Reactions Tylenol With Codeine #3 [Acetaminophen-Codeine] Hives and Rash Review of Systems: Constitutional: Positive for appetite change, chills, fatigue and fever. HENT: Positive for ear pain and hearing loss. Eyes: Positive for visual disturbance. Respiratory: Positive for chest tightness and shortness of breath. Cardiovascular: Positive for chest pain and palpitations. Gastrointestinal: Positive for abdominal pain and diarrhea. Endocrine: Positive for heat intolerance. Genitourinary: Negative. Musculoskeletal: Positive for back pain, neck pain and neck stiffness. Skin: Positive for rash. Allergic/Immunologic: Negative. Neurological: Positive for dizziness, light-headedness and headaches. Hematological: Bruises/bleeds easily. Psychiatric/Behavioral: Positive for decreased concentration and sleep disturbance. The patient is nervous/anxious. All other systems reviewed and are negative. Physical Exam: Vitals: see in note above GENERAL: Well developed, well nourished, in no acute distress HEAD: Normocephalic and atraumatic CHEST Regular respiratory rate CV Regular rate and rhythm ABDOMEN: Soft and non-tender without masses, BACK: No CVAT PELVIC EXAM Vulva: Normal appearance, normal hair distribution, no lesions or masses. Urethra: Normal, no masses, non-tender, no discharge. Bladder: Normal, no masses, 7/10 tender, non-distended. Vagina: Normal, ruggated, physiologic discharge, no lesions, no masses, no cystocele, adequate pelvic support, 2/10 right levator, 5-6/10 left levator pain EXTREMITIES: No clubbing, cyanosis, edema, or deformity SKIN: Intact without lesions or rashes NEURO: COYNE well. Patient alert and oriented x3. PSYCH: Alert and cooperative; normal mood and affect; normal attention span and concentration Most Recent Labs: No results found for this or any previous visit (from the past 4032 hour(s)). Urinalysis: 2+ protein, trace blood PVR: 49 ml Most Recent Imaging: No images are attached to the encounter. Assessment: 1. Proteinuria 2. ?IC/CPP 3. Flank pain Plan: 1. Referral to nephrology 2. IC diet info 3. Renal u/s 4. Urinalysis with micro, urine culture 5. Standing order for urine culture 6. Florajen/ellura info 7. RTC 6 wks with pvr documented in this encounter Plan of Treatment Date Type Specialty Care Team Description 02/06/2019 Ancillary Procedure Urology 03/17/2019 Office Visit Urology Lambert Bass MD [address] [facility] [address], [place] [address] 04/02/2019 Office Visit Nephrology Candace Danielle MD [address] [facility] [address] [place] [address] Name Type Priority Associated Diagnoses Order Schedule US RENAL BILATERAL Imaging Routine Proteinuria, 1 Occurrences unspecified type starting 01/27/2019 until 01/28/2020 URINALYSIS AUTO Lab Routine Proteinuria, Ordered: 01/27/2019 W/SCOPE unspecified type CULTURE, Microbiology Routine Proteinuria, Ordered: 01/27/2019 URINE/SENSITIVITY ON unspecified type ALL Name Type Priority Associated Diagnoses Order Schedule AMB REF TO NEPH Outpatient Referral Routine Proteinuria, Ordered: AMY unspecified type 01/27/2019 Health Maintenance Due Date Last Done Comments TETANUS SHOT (ADULT) 2013 HIV SCREENING 2016 FLU VACCINE > 6 MONTHS 11/20/2018 documented as of this encounter Procedures Procedure Name Priority Date/Time Associated Diagnosis Comments ÓSCAR,POST-VOID Routine 01/27/2019 Proteinuria, Results for this RES,US,NON-IMG unspecified type procedure are in the results section. POCT URINALYSIS Routine 01/27/2019 Proteinuria, Results for this DIPSTICK unspecified type procedure are in the results section. documented in this encounter Results ÓSCAR,POST-VOID RES,US,NON-IMG (01/27/2019) PVR 49 ml cc/ml POCT URINALYSIS DIPSTICK (01/27/2019) COLOR UA Yellow YELLOW/STRAW CLARITY UA Clear CLEAR GLUCOSE UA Negative NEGATIVE BILIRUBIN UA Negative NEGATIVE KETONES UA Negative NEGATIVE SPECIFIC GRAVITY UA 1.015 1.005 - 1.035 BLOOD UA Trace NEGATIVE PH UA 6.0 5 - 9 PROTEIN UA 2+ NEGATIVE UROBILINOGEN UA 0.02 E.U/DL NORMAL MG/DL LEUKOCYTE ESTERASE UA Negative NEGATIVE NITRITE UA Negative NEGATIVE REDUCING SUBSTANCES NEGATIVE URINE Specimen documented in this encounter Visit Diagnoses Diagnosis Proteinuria, unspecified type - Primary documented in this encounter Insurance Payer Benefit Plan / Subscriber ID Effective Dates Phone Address Type Group [place] [place] P[place]/EPO - [employer]BS xxxxxxxxxxxx 2018-Present [address] [place] [address] documented as of this encounter
--- OUTSIDE RECORDS SUMMARY | 2019-04-15 19:58 | XMS REPORT ---
:2000 [facility] Address [address] [place] [address] Care Team Providers Name Role Phone HOLGER GARRETT Unavailable Unavailable ADRIANAARSENIO Gurrola Unavailable Unavailable Payers Payer Name Policy Type Policy Number Effective Date Expiration Date Problems This patient has no known problems. Allergies, Adverse Reactions, Alerts Allergy Allergy Status Severity Reaction(s) Onset Inactive Treating Comments Name Type Date Date Clinician No Known DA Active U 2018-05 Allergies -07 00:00:0 0 No Known DA Active U 2018-04 Allergies -18 00:00:0 0 Medications This patient has no known medications. Results Test Description Test Time Test Comments Text Results Atomic Results Result Comments U/S, BIOPSY, RENAL 2019-04-10 14:35:00 Reason for FINAL REPORT PATIENT (KIDNEY) Exam:->other ID: [id number] History: proteinuria, Proteinuria. PROCEDURE: autoimmune disorder, Following informed htn written consent and limited sonographic examination of the left kidney, the patient's left flank was prepped and draped in the usual sterile manner. 2% lidocaine was given locally for anesthesia. Additionally, the patient received 1.5 mg IV Versed and 75 mcg IV fentanyl for conscious sedation and pain control. Vital signs were monitored and remained stable. Conscious sedation and continuous patient monitoring were provided by the attending radiologist and a registered nurse for approximately 20 minutes during the procedure. Using ultrasound guidance, a posterior approach and an 18-gauge Biopince needle, a total of four passes and three 18-gauge core tissue samples were obtained from the patient's posterior lower pole left renal cortex. All samples were submitted to pathology who was present for the procedure. Overall, the patient tolerated the procedure well without immediate complications and was discharged from the department in stable condition. FINDINGS: Limited sonographic examination of the left kidney performed prior to, during and following the biopsy demonstrates the needle tip in expected position within the posterior lower pole renal cortex. Following the biopsy, there are no perinephric fluid collections or evidence for hemorrhage. IMPRESSION: 1. Technically successful uncomplicated ultrasound-guided core biopsy of the left kidney. Signed: Madison Marques Verified Date/Time: 04/10/2019 14:35:37 Reading Location: [facility] P048 Angio Body Reading Room 2019-04-10 07:58:00 Test Item Value Reference Range Comments PARTIAL THROMBOPLASTIN TIME (BEAKER) (test cnvf=689) 70.7 seconds 22.5-36.0 PROTHROMBIN TIME/[id number] 07:56:00 Test Item Value Reference Range Comments PROTIME (BEAKER) (test jqmk=078) 13.2 seconds 11.9-14.2 INR (BEAKER) (test mfgz=623) 1.1 <=5.9 Effective 09/17/2018: PT Reference Range ChangeNew: 11.9-14.2 Previous: 11.7- 14.7RECOMMENDED COUMADIN/WARFARIN INR THERAPY RANGESSTANDARD DOSE: 2.0-3.0 Includes: PROPHYLAXIS for venous thrombosis, systemic embolization; TREATMENT for venous thrombosis and/or pulmonary embolus.HIGH RISK: Target INR is2.5-3.5 for patients wiht mechanical heart valves.CBC W/PLT COUNT & AUTO [id number] 07:33:00 Test Item Value Reference Range Comments WHITE BLOOD CELL COUNT (BEAKER) (test znhf=557) 5.2 K/ L 3.5-10.5 RED BLOOD CELL COUNT (BEAKER) (test jjlv=521) 4.37 M/ L 3.93-5.22 HEMOGLOBIN (BEAKER) (test rvbp=561) 12.0 GM/DL 11.2-15.7 HEMATOCRIT (BEAKER) (test jley=824) 36.4 % 34.1-44.9 MEAN CORPUSCULAR VOLUME (BEAKER) (test tgft=333) 83.3 fL 79.4-94.8 MEAN CORPUSCULAR HEMOGLOBIN (BEAKER) (test 27.5 pg 25.6-32.2 jlad=330) MEAN CORPUSCULAR HEMOGLOBIN CONC (BEAKER) (test 33.0 GM/DL 32.2-35.5 dotc=057) RED CELL DISTRIBUTION WIDTH (BEAKER) (test 12.9 % 11.7-14.4 weiy=654) PLATELET COUNT (BEAKER) (test ezvj=331) 128 K/CU MM 150-450 MEAN PLATELET VOLUME (BEAKER) (test sjgs=611) 11.2 fL 9.4-12.3 NUCLEATED RED BLOOD CELLS (BEAKER) (test 0 /100 WBC 0-0 kgrj=467) NEUTROPHILS RELATIVE PERCENT (BEAKER) (test 57 % srgs=986) LYMPHOCYTES RELATIVE PERCENT (BEAKER) (test 31 % hmwz=581) MONOCYTES RELATIVE PERCENT (BEAKER) (test 10 % vrta=896) EOSINOPHILS RELATIVE PERCENT (BEAKER) (test 2 % mdjq=734) BASOPHILS RELATIVE PERCENT (BEAKER) (test 1 % tyvn=008) NEUTROPHILS ABSOLUTE COUNT (BEAKER) (test 2.96 K/ L 1.56-6.13 fmqq=314) LYMPHOCYTES ABSOLUTE COUNT (BEAKER) (test 1.62 K/ L 1.18-3.74 ogad=585) MONOCYTES ABSOLUTE COUNT (BEAKER) (test 0.51 K/ L 0.24-0.36 rhgg=045) EOSINOPHILS ABSOLUTE COUNT (BEAKER) (test 0.09 K/ L 0.04-0.36 hacb=142) BASOPHILS ABSOLUTE COUNT (BEAKER) (test 0.03 K/ L 0.01-0.08 viej=064) IMMATURE GRANULOCYTES-RELATIVE PERCENT (BEAKER) 0 % 0-1 (test rdvf=5053) SCREEN, [id number] 07:30:00 Test Item Value Reference Range Comments TEST URINE (BEAKER) (test fjjr=608) Negative CT, CHEST, WITH [id number] 12:57:00FINAL REPORT CT of the chest, abdomen and pelvis, with contrast Clinical History: Antiphospholipid syndrome Technique: CT of the chest, abdomen and pelvis is performed with intravenous contrast administration. This exam was performed according to our departmental dose optimization program which includes automated exposure control, adjustment of the mA and/or kV according to patient' s size and/or use of iterative reconstructive technique. Comparison Film: None Discussion: Visualized thyroid gland is normal. There is no supraclavicular, axillary, mediastinal or hilar lymphadenopathy. Heart and pericardium are unremarkable. There is no mass or consolidation in the lung. No pleural effusion. Central airways are patent, no bronchiectasis or bronchial wall thickening. No liver lesion is identified. Status post cholecystectomy. No biliary ductal dilatation. Spleen is borderline enlarged, measuring 13 cm axially. Pancreas, adrenal glands are unremarkable. Kidneys demonstrate no mass , hydronephrosis or radiopaque stone. No evidence of bowel obstruction, or abnormal bowel wallthickening. Normal appendix. In the pelvis, the there are small stones in the bladder. Uterus and adnexa are unremarkable. No ascites, lymphadenopathy, or free air. Osseous structures are intact. Impression: Borderline splenomegaly. Small stones in bladder. Status post cholecystectomy. Signed: [facility] Verified Date/Time: 11/14/2018 12:57:23 Reading Location: [facility] C013X [facility] Consult Reading Room CT, [id number] 12:57:00FINAL REPORT CT of the chest, abdomen and pelvis, with contrast Clinical History: Antiphospholipid syndrome Technique: CT of the chest , abdomen and pelvis is performed with intravenous contrast administration. This exam was performed according to our departmental dose optimization program which includes automated exposure control, adjustment of the mA and/or kV according to patient's size and/or use of iterative reconstructive technique. Comparison Film: None Discussion: Visualized thyroid gland is normal. There is no supraclavicular, axillary, mediastinal or hilar lymphadenopathy. Heart and pericardium are unremarkable. There is no mass or consolidation in the lung. No pleural effusion. Central airways are patent, no bronchiectasis or bronchial wall thickening. No liver lesion is identified. Status post cholecystectomy. No biliary ductal dilatation. Spleen is borderline enlarged, measuring 13 cm axially. Pancreas, adrenal glands are unremarkable. Kidneys demonstrate no mass , hydronephrosis or radiopaque stone. No evidence of bowel obstruction, or abnormal bowel wallthickening. Normal appendix. In the pelvis, the there are small stones in the bladder. Uterus and adnexa are unremarkable. No ascites, lymphadenopathy, or free air. Osseous structures are intact. Impression: Borderline splenomegaly. Small stones in bladder. Status post cholecystectomy. Signed: Kenny Del Rosario Verified Date/Time: 11/14/2018 12:57:23 Reading Location: [address] Ortho Consult Reading Room [id number] 11:06:00 Test Item Value Reference Range Comments POC-CREATININE (BEAKER) 0.7 mg/dL 0.6-1.[address] [facility]-KG 2457 (test cshc=6750) [facility] [address] POC-EGFR (BEAKER) (test 107 mL/min/1.73M2 drny=8693) ANTINUCLEAR ANTIBODIES [id number] 18:20:00 Test Item Value Reference Range Comments YOCASTA DIRECT (test code=ANADIR) Negative Negative Performed At: [facility] [address] [id number] Arreguin MD Ph:[phone] ANTINUCLEAR ANTIBODIES [id number] 11:37:00 Test Item Value Reference Range Comments YOCASTA DIRECT (test code=ANADIR) Negative Negative Performed At: [facility] [address] [id number] Arreguin MD Ph:[phone] AB DNA DOUBLE STRAND (test code=DNADSAB) AB TEETEE/METABOLIC SPECIALIST FRACTION (test code=RNPAB) AB TEETEE/SM FRACTION (test code=SMAB) AB TOBY-1 (test code=JO1AB) AB SCLERODERMA (test code=SCLERAB) AB SJOGRENS A/SSA (test code=SJAAB) AB SJOGRENS B/SSB (test code=SJBAB) ANTINUCLEAR ANTIBODIES [id number] 11:37:00 Test Item Value Reference Range Comments YOCASTA DIRECT (test code=ANADIR) Negative Negative Performed At: [facility] [id number] Arreguin MD Ph:[phone] AB DNA DOUBLE STRAND (test code=DNADSAB) AB TEETEE/SM FRACTION (test code=SMAB) AB TOBY-1 (test code=JO1AB) AB SCLERODERMA (test code=SCLERAB) AB SJOGRENS A/SSA (test code=SJAAB) AB SJOGRENS B/SSB (test code=SJBAB) ANTINUCLEAR ANTIBODIES [id number] 11:37:00 Test Item Value Reference Range Comments YOCASTA DIRECT (test code=ANADIR) Negative Negative Performed At: [address] [id number] Arreguin MD Ph:[phone] AB DNA DOUBLE STRAND (test code=DNADSAB) AB TOBY-1 (test code=JO1AB) AB SCLERODERMA (test code=SCLERAB) AB SJOGRENS A/SSA (test code=SJAAB) AB SJOGRENS B/SSB (test code=SJBAB) ANTINUCLEAR ANTIBODIES [id number] 11:37:00 Test Item Value Reference Range Comments YOCASTA DIRECT (test code=ANADIR) Negative Negative Performed At: [address] [id number] Arreguin MD Ph:[phone] AB DNA DOUBLE STRAND (test code=DNADSAB) AB SCLERODERMA (test code=SCLERAB) AB SJOGRENS A/SSA (test code=SJAAB) AB SJOGRENS B/SSB (test code=SJBAB) ANTINUCLEAR ANTIBODIES [id number] 11:37:00 Test Item Value Reference Range Comments YOCASTA DIRECT (test code=ANADIR) Negative Negative Performed At: [address] [id number] Arreguin MD Ph:[phone] AB DNA DOUBLE STRAND (test code=DNADSAB) AB SJOGRENS A/SSA (test code=SJAAB) AB SJOGRENS B/SSB (test code=SJBAB) ANTINUCLEAR ANTIBODIES [id number] 11:37:00 Test Item Value Reference Range Comments YOCASTA DIRECT (test code=ANADIR) Negative Negative Performed At: [address] [id number] Arreguin MD Ph:[phone] AB DNA DOUBLE STRAND (test code=DNADSAB) AB SJOGRENS B/SSB (test code=SJBAB) ANTINUCLEAR ANTIBODIES [id number] 11:37:00 Test Item Value Reference Range Comments YOCASTA DIRECT (test code=ANADIR) Negative Negative Performed At: [facility] [address] [id number] Kyle L MD Ph:[phone] AB DNA DOUBLE STRAND (test code=DNADSAB) ANTINUCLEAR ANTIBODIES [id number] 14:02:00 Test Item Value Reference Range Comments YOCASTA DIRECT (test code=ANADIR) Negative Negative Performed At: [facility] [address] [id number] Kyle L MD Ph:[phone] AB CENTROMERE (test code=CENTRAB) AB DNA DOUBLE STRAND (test code=DNADSAB) AB TEETEE/METABOLIC SPECIALIST FRACTION (test code=RNPAB) AB TEETEE/SM FRACTION (test code=SMAB) AB TOBY-1 (test code=JO1AB) AB SCLERODERMA (test code=SCLERAB) AB SJOGRENS A/SSA (test code=SJAAB) AB SJOGRENS B/SSB (test code=SJBAB) URINALYSIS W/O [id number] 13:24:00 Test Item Value Reference Range Comments UA GLUCOSE DIPSTICK (test code=DGLUU) NEGATIVE NEGATIVE UA KETONE DIPSTICK (test code=KETU) NEGATIVE NEGATIVE UA PROTEIN DIPSTICK (test code=PROU) 2+ NEGATIVE Comments to [place] Attacher: DIP FOR PROTEINSpecimen Comment: CLEAN CATCHIS NURSE PERFORMING TEST? LIZZ CREATININE CLEARANCE [id number] 23:40:00 Test Item Value Reference Range Comments CREATININE CLEARANCE RESULT (test code=CREATCLR) 150 ml/min 70-120 CREATININE (test code=CREAT) 0.6 mg/dL 0.5-1.0 UR CREATININE RANDOM (test code=CREATU) 60.7 mg/dL UR VOLUME (test code=VOL) 2150 ML UR PROTEIN [id number] 23:40:00 Test Item Value Reference Range Comments UR PROTEIN RANDOM (test 47.1 mg/dL code=PROTU) UR PROTEIN 24HR (test 1013 mg/24HR 20-150 RESULTS CALLED TO WEST code=KPTO51D) G.READ BACK & CONFIRMED? YES.BY FSAMSON.ELB1 05/30/18 4878.Units for 24 HR Urine Protein have changed: New Units=MG/24HR [id number] 21:24:00 Test Item Value Reference Range Comments CREATININE (test code=CREAT) 0.6 mg/dL 0.5-1.0 [id number] 21:24:00 Test Item Value Reference Range Comments SGOT/AST (test code=AST) 30 units/L 15-37 [id number] 21:24:00 Test Item Value Reference Range Comments SGPT/ALT (test code=ALT) 35 units/L 12-78 CBC W/AUTO [id number] 20:57:00 Test Item Value Reference Range Comments WHITE BLOOD CELL (test code=WBC) 11.1 K/mm3 6.6-12.1 RED BLOOD CELL (test code=RBC) 4.02 M/mm3 3.45-5.01 HEMOGLOBIN (test code=HGB) 12.2 g/dL 10.7-13.9 HEMATOCRIT (test code=HCT) 36.7 % 32.1-42.1 MEAN CELL VOLUME (test code=MCV) 91 fL 84.1-94.8 MEAN CELL HGB (test code=MCH) 30.3 pg 27-35 MEAN CELL HGB CONCETRATION (test code=MCHC) 33.2 gm/dL 32.2-34.1 RED CELL DISTRIBUTION WIDTH (test code=RDW) 12.7 % 12.4-16.5 PLATELET COUNT (test code=PLT) 125 K/mm3 133-385 IMMATURE PLATELET FRACTION (test code=IPF) 0.0 % 0.0-10.8 MEAN PLATELET VOLUME (test code=MPV) 11.8 fl 9.1-12.7 NEUTROPHIL % (test code=NT%) 70.6 % 56.5-79.4 LYMPHOCYTE % (test code=LY%) 19.7 % 14.3-34.3 MONOCYTE % (test code=MO%) 7.3 % 5.1-10.4 EOSINOPHIL % (test code=EO%) 1.1 % 0.1-3.0 BASOPHIL % (test code=BA%) 0.4 % 0.1-1.0 NEUTROPHIL # (test code=NT#) 7.8 K/mm3 LYMPHOCYTE # (test code=LY#) 2.2 K/mm3 MONOCYTE # (test code=MO#) 0.8 K/mm3 EOSINOPHIL # (test code=EO#) 0.12 K/mm3 BASOPHIL # (test code=BA#) 0.0 K/mm3 RBC MORPHOLOGY REQUIRED (test code=RBCM) NORMAL NORMAL PLATELET MORPHOLOGY REQUIRED (test code=PLTMR) NORMAL NORMAL CBC W/AUTO [id number] 06:31:00 Test Item Value Reference Range Comments WHITE BLOOD CELL (test code=WBC) 10.0 K/mm3 6.6-12.1 RED BLOOD CELL (test code=RBC) 3.98 M/mm3 3.45-5.01 HEMOGLOBIN (test code=HGB) 12.0 g/dL 10.7-13.9 HEMATOCRIT (test code=HCT) 36.3 % 32.1-42.1 MEAN CELL VOLUME (test code=MCV) 91 fL 84.1-94.8 MEAN CELL HGB (test code=MCH) 30.2 pg 27-35 MEAN CELL HGB CONCETRATION (test code=MCHC) 33.1 gm/dL 32.2-34.1 RED CELL DISTRIBUTION WIDTH (test code=RDW) 12.7 % 12.4-16.5 PLATELET COUNT (test code=PLT) 112 K/mm3 133-385 IMMATURE PLATELET FRACTION (test code=IPF) 0.0 % 0.0-10.8 MEAN PLATELET VOLUME (test code=MPV) 11.8 fl 9.1-12.7 NEUTROPHIL % (test code=NT%) 73.3 % 56.5-79.4 LYMPHOCYTE % (test code=LY%) 16.3 % 14.3-34.3 MONOCYTE % (test code=MO%) 8.0 % 5.1-10.4 EOSINOPHIL % (test code=EO%) 1.3 % 0.1-3.0 BASOPHIL % (test code=BA%) 0.3 % 0.1-1.0 NEUTROPHIL # (test code=NT#) 7.4 K/mm3 LYMPHOCYTE # (test code=LY#) 1.6 K/mm3 MONOCYTE # (test code=MO#) 0.8 K/mm3 EOSINOPHIL # (test code=EO#) 0.13 K/mm3 BASOPHIL # (test code=BA#) 0.0 K/mm3 RBC MORPHOLOGY REQUIRED (test code=RBCM) NORMAL NORMAL PLATELET MORPHOLOGY REQUIRED (test code=PLTMR) NORMAL NORMAL CHEMISTRY 7 [id number] 23:59:00 Test Item Value Reference Range Comments SODIUM (test code=NA) 138 mEq/L 135-145 POTASSIUM (test code=K) 3.6 mEq/L 3.5-5.0 CHLORIDE (test code=CL) 105 mEq/L 100-115 CARBON DIOXIDE (test code=CO2) 25 mEq/L 22-31 ANION GAP (test code=GAP) 11.80 10-20 GLUCOSE (test code=GLU) 101 mg/dL 65-110 BLOOD UREA NITROGEN (test code=BUN) 11 mg/dL 7-18 GLOMERULAR FILTRATION RATE (test code=GFR) 159 ml/min >60 CREATININE (test code=CREAT) 0.5 mg/dL 0.5-1.0 CALCIUM (test code=CA) 8.6 mg/dL 8.4-10.2 CBC W/AUTO [id number] 23:57:00 Test Item Value Reference Range Comments WHITE BLOOD CELL (test code=WBC) 10.3 K/mm3 6.6-12.1 RED BLOOD CELL (test code=RBC) 3.99 M/mm3 3.45-5.01 HEMOGLOBIN (test code=HGB) 11.8 g/dL 10.7-13.9 HEMATOCRIT (test code=HCT) 36.4 % 32.1-42.1 MEAN CELL VOLUME (test code=MCV) 91 fL 84.1-94.8 MEAN CELL HGB (test code=MCH) 29.6 pg 27-35 MEAN CELL HGB CONCETRATION (test code=MCHC) 32.4 gm/dL 32.2-34.1 RED CELL DISTRIBUTION WIDTH (test code=RDW) 12.8 % 12.4-16.5 PLATELET COUNT (test code=PLT) 114 K/mm3 133-385 IMMATURE PLATELET FRACTION (test code=IPF) 4.2 % 0.0-10.8 MEAN PLATELET VOLUME (test code=MPV) 11.5 fl 9.1-12.7 NEUTROPHIL % (test code=NT%) 68.4 % 56.5-79.4 LYMPHOCYTE % (test code=LY%) 21.5 % 14.3-34.3 MONOCYTE % (test code=MO%) 7.8 % 5.1-10.4 EOSINOPHIL % (test code=EO%) 1.1 % 0.1-3.0 BASOPHIL % (test code=BA%) 0.3 % 0.1-1.0 NEUTROPHIL # (test code=NT#) 7.0 K/mm3 LYMPHOCYTE # (test code=LY#) 2.2 K/mm3 MONOCYTE # (test code=MO#) 0.8 K/mm3 EOSINOPHIL # (test code=EO#) 0.11 K/mm3 BASOPHIL # (test code=BA#) 0.0 K/mm3 RBC MORPHOLOGY REQUIRED (test code=RBCM) NORMAL NORMAL PLATELET MORPHOLOGY REQUIRED (test code=PLTMR) NORMAL NORMAL - US PREG UT [id number] 13:02:00 Patient Name: PAM EASTON Unit No: [id number] EXAMS: CPT CODE: [id number] US PREG [place] TRANSVAGINAL [address] [facility] [address] [place] [id number] LIMITED OBSTETRICAL ULTRASOUND REPORT --- Pat. Name: PAM EASTON Pat. No: [id number] Study Date: 11:33am , Age: 04 2000, 17 Pregnancies: 2, Para 0 LMP: 01/12/2018 GA by LMP: 16w5d GA by US: 15w5d GA Selected: 16w5d (LMP) ANIYA: 10/19/2018 Referring MD: Jaiden Arana Vp Marketing: Danielle Webb RDMS, RVT CPT4: USPRUTTRVG Admitting MD: Jaiden Arana Hist/Ind: SCAN 1 VAG. BLEEDING - MEASUREMENTS AGE GROWTH EVALUATION Measurement GA Range Srce %for GA Ratios ----- ---- --- ---- BPD 3.3 cm 15w6d (37e7g-26g9p) Hadl BPD 14% FL/ BPD 0.58 HC 12.0 cm 15w6d (54a3l-83e7t) Hadl HC 23% FL/AC 0.18 APD 3.3 cm APD HC/AC 1.16 (1.09 - 1.28) TAD 3.3 cm TAD CI 0.85 (0.70 - 0.86) AC 10.4 cm 16w0d (03q9c-07p7j) Hadl AC 32% FL 1.9 cm 15w3d (48y2l-51z2i) Hadl FL <05 HL 1.9 cm 15w4d ( 23q7d-56r5a) Leeroy HL 31% GA for sonogram 15w5d (11s9z-58j2a) Weight Estimate: based on (HL,HC,AC,FL) Avg Weight: 142 gm (121-162) Hadlock : 0lbs, 4oz Cervical Length : 4.7 cm Heart Rate: 165 bpm MATERNAL ANATOMY Ovaries LxHxW(cm) Right 1.3 x 1.3 x 2.4 Vol: 2.1cc Left 4.1 x 2.6 x 2.0 Vol: 11.2cc Ovarian Cysts LxHxW (cm) R1: 1.3 x 1.3 x 2.4 Desc: Corpus Luteum CLINICAL SUMMARY Type of Gestation: Wisdom Intrauterine in breech presentation. size is slightly less than expectedbased on LMP Correlate with office scan and FU US motion and organs seen: [facility] NAME: PAM EASTON Radiology Department PHYS: Jaiden De Leon [address] : 2000 AGE: 17 SEX : F [place], [place] [address] LOC: DIANA PHONE #: [phone] EXAM DATE: 05/09/2018 STATUS: DEP ER FAX #: [phone] NO: Page 1 Signed Report (CONTINUED) Patient Name: PAM EASTON Unit No: [id number] EXAMS: CPT CODE: [id number] US PREG [place] TRANSVAGINAL [address] <Continued> heart motion seen Placental location: Posterior [...] Technologist: Danielle Webb RDMS, RVT; Kimbe Probe: [id number] Trnscrbd D / (1302) t.SDR.NMG Orig Print D/T: S: (3920) [facility] NAME: PAM EASTON Radiology Department PHYS: GUTAL. - Jaiden Arana [address] : 2000 AGE: 17 SEX: F [place] [address] LOC: Doris.ERS PHONE #: [phone] EXAM DATE: 05/09/2018 STATUS: DEP ERFAX #: [phone] RAD NO: Page 2 Signed Report Patient Name: PAM EASTON Unit No: [id number] EXAMS: CPT CODE: [id number] US PREG UT TRANSVAGINAL [address] <Continued> [facility] NAME: APURVA EASTONJANICE Radiology Department PHYS: GUTAL. - LalitJaiden [address] : 2000 AGE: 17 SEX: F [place] [address] LOC: Doris.ERS PHONE #: [phone] EXAM DATE: 05/09/2018 STATUS: DEP ER FAX #: [phone] RAD NO: Page 3 Signed Report- US FLW [id number] 13:02:00 Patient Name: PAM EASTON Unit No: [id number] EXAMS: [place]: [id number] [address] [facility] [address] [place], [place] [address] LIMITED OBSTETRICAL ULTRASOUND REPORT Pat. Name: PAM EASTON Pat. No: [id number] Study Date: 05/09/2018 11 :33am , Age: 04 2000, 17 Pregnancies: 2, Para 0 LMP: 01/12/2018 GA by LMP: 16w5d GA by US: 15w5d GA Selected: 16w5d ( LMP) ANIYA: 10/19/2018 Referring MD: JAIDEN ARANA Vp Marketing: Danielle Webb RDMS, RVT CPT4: USPREGLTD Admitting MD: JAIDEN ARANA Hist/Ind: SCAN 1 VAG. BLEEDING MEASUREMENTS AGE GROWTH EVALUATION Measurement GA Range Srce %for GA Ratios ----- ---- ------- BPD 3.3 cm 15w6d (22p8b-11t7h) Hadl BPD 14% FL/BPD 0.58 HC 12.0 cm 15w6d ( 68l4z-72c2p) Hadl HC 23% FL/AC 0.18 APD 3.3 cm APD HC/AC 1.16 (1.09 - 1.28) TAD 3.3 cm TAD CI 0.85 ( 0.70 - 0.86) AC 10.4 cm 16w0d (06k1e-47k3t) Hadl AC 32% FL 1.9 cm 15w3d ( 35v7c-21q3k) Hadl FL <05 HL 1.9 cm 15w4d (62h9s-77l0d) Leeroy HL 31% GA for sonogram 15w5d (07l4u-01n7y) Weight Estimate: based on (HL,HC,AC,FL ) Avg Weight: 142 gm (121-162) Hadlock : 0lbs, 4oz Cervical Length: 4.7 cm Heart Rate: 165 bpm MATERNAL ANATOMY -------- Ovaries LxHxW (cm) Right 1.3 x 1.3 x 2.4 Vol: 2.1cc Left 4.1 x 2.6 x 2.0 Vol: 11.2cc Ovarian Cysts LxHxW (cm) R1: 1.3 x 1.3 x 2.4 Desc: Corpus Luteum - --------- CLINICAL SUMMARY Type of Gestation: Wisdom Intrauterine in breech presentation. size is slightly less than expected based on LMP Correlate with office scan and FU US motion and organs seen: [facility] NAME: EASTONPAM Radiology Department PHYS: GUTAL. - LalitJaiden [address] : 2000 AGE: 17 SEX: F [place] [address] LOC: DIANA PHONE #: [phone] EXAM DATE: 05/09/2018 STATUS: REG ER FAX #: [phone] RAD NO: Page 1 Signed Report (CONTINUED) Patient Name: PAM EASTON Unit No: [id number] EXAMS: CPT CODE: [id number] [address] <Continued> heart motion seen Placental location: Posterior Right lateral low lying Placental maturity : Grade 1 There is no evidence of placenta previa. Amniotic fluid volume is normal. Uterus and adnexa: No significant abnormalities seen Uterus and adnexa: No sonographic evidence of abruption. Antonia Mendes M.D. Electronic Signature 05/09/2018 01:02pm Electronically Signed by Antonia Mendes MD on at 1302 Reported and signed by: Antonia Mendes MD CC: Jaiden Arana MD Technologist: Danielle Webb RDMS, RVT; Harmony Probe: Trnscrbd D/T : 05/09/2018 (1302) Ricardo Orig Print D/T: S:2018 (1302) [facility] NAME: PAM EASTONRadiology Department PHYS: RITAAL. - Jaiden Arana [address] : 2000 AGE: 17 SEX: F [place] [address] LOC: AngelaERS PHONE #: [phone] EXAM DATE: 05/09/2018 STATUS: REG ER FAX #: [phone] RAD NO: Page 2 Signed Report Patient Name: PAM EASTON Unit No: [id number] EXAMS: CPT CODE : [id number] [place] [address] < Continued> [facility] NAME: PAM EASTON Radiology Department PHYS: [email or web address] - Arana,Jaiedn [address] : 2000 AGE: 17 SEX: F [place], [place] [address] LOC: AngelaERSPHONE #: EXAM DATE: 05/09/2018 STATUS: REG ER FAX #: [phone] RAD NO: Page 3 Signed ReportUA RFLX MICR CULT IF [id number] 11:42:00 Test Item Value Reference Range Comments [...] NEG NEG UA LEUKOCYTE ESTERASE DIPSTICK (test 1+ NEG code=LEUU) UA WBC (test code=WBCU) 0-2 #/hpf NONE SEEN UA RBC (test code=RBCU) 0-2 #/hpf NONE SEEN UA EPITHELIAL CELLS (test code=EPIU) RARE #/HPF RARE-FEW UA BACTERIA (test code=BACU) RARE /HPF RARE-FEW UA MUCUS (test code=MUCU) RARE NONE SEEN CBC W/AUTO [id number] 11:38:00 Test Item Value Reference Range Comments [...]
--- OUTSIDE RECORDS SUMMARY | 2019-04-15 19:58 | XMS REPORT | Summary of Care ---
:2000 Author Organization [facility] Address [address] [place] [id number] Care Team Providers Name Role Phone Garry Ibarra MD Primary Care Provider Reason for Visit Reason Comments Follow-up Hypertension Depression Refill Request Encounter Details Date Type Department Care Team Description 12/24/2018 Office Visit [facility] Family Garry Ibarra, Essential hypertension (Primary Dx); Medicine - [facility] Eczema, unspecified type [address] [place] [id number] [place], [place] [phone] [id number] Allergies No Known Allergiesdocumented as of [...] 2 (two) times daily. 20 tablet 0 Lgsnrfbdmz-Enzgjexjbosze-Ppgt (FIORICET) 50-300-40 mg per capsule Take 1 [...] file Gets together: Not on file Attends restorationist service: Not on file Active member of [...] Phone Address Type / Group BCBS OF [facility] [id number] 2011-Estelle [phone] [address] PPO/POS [place] [id number] [place] [address] documented as of this encounter"
[2019-04-15] MEDS ORDERED: NA CHLORIDE 0.9% 3,000 ML ONE (20:54)
[2019-04-15] MEDS ORDERED: CEFTRIAXONE/SWI 1gm 1 GM/10 ML SYR ONE (20:55)
[2019-04-15 21:03] LABS: Absolute Lymphocytes (CBC) 1.7 K/uL (0.7-4.9); Basophils % 0.6 % (0-1.3); Hematocrit 30.3 % (36.0-45.0); Lymphocytes % 18.9 % (15.3-44.8); MPV 8.9 fL (7.6-11.3); RBC Red Blood Cell Count 3.69 M/uL (3.86-4.86)
--- NOTE | 2019-04-15 21:04 | RAD REPORT ---
EXAM DESCRIPTION: RAD - Chest Single View - 04/15/2019 8:52 pm CLINICAL HISTORY: COUGH Chest pain. COMPARISON: Chest Single View dated 05/29/2018 FINDINGS: Portable technique limits examination quality. The lungs are underinflated resulting vascular crowding but grossly clear. The heart is normal in siz e. No displaced fractures.
[2019-04-15 21:19] LABS: ALT/SGPT 27 U/L (12-78); AST/SGOT 17 U/L (15-37); Albumin 3.3 g/dL (3.4-5.0); Alkaline Phosphatase 72 U/L (45-117); BUN Blood Urea Nitrogen 14 mg/dL (7-18); Bicarbonate 26 mmol/L (21-32); Bilirubin Direct < 0.1 mg/dL (0-0.2); Bilirubin Total 0.3 mg/dL (0.2-1.0); CKMB Creatine Kinase MB < 1.0 ng/mL (0.3-3.6); Creatine Phosphokinase 87 U/L (26-192); Glucose Level 106 mg/dL (74-106); Lipase 81 U/L (73-393); Potassium 3.7 mmol/L (3.5-5.1); Protein, Total 7.3 g/dL (6.4-8.2); Sodium Level 141 mmol/L (136-145); Troponin (Emerg Dept Use Only) < 0.02 ng/mL (0.0-0.045)
[2019-04-15 21:28] LABS: Protime INR 1.19
[2019-04-15 22:54] LABS: Urine Culture Reflex Order NOT NEEDED
[2019-04-15 22:56] LABS: Urine Bacteria <20 /HPF (<20)
[2019-04-15 22:56] LABS: Urine Blood 2+ (NEG); Urine Glucose NEGATIVE (NEG); Urine Protein 3+ (NEG); Urine Specific Gravity >1.030 (1.005-1.030); Urine pH 7.5 (5.0-7.0)
--- NOTE | 2019-04-15 23:12 | ER ---
Nurse's Notes [facility] Name: Oscar oGng Age: 18 yrs Sex: Female : 2000 Arrival Date: 04/15/2019 Time: 19:57 Bed 4 Private MD: Garry Ibarra S Diagnosis: Fever, unspecified;Postprocedural hemorrhage and hematoma of a genitourinary system organ or structure following a genitourinary system procedure;Anemia, unspecified Presentation: 04/15 20:20 Presenting complaint: Patient states: Reports she had a biopsy last Saturday, reports ea since then she has been having right sided pain that travels down to her lower abdomen and fever. States she has been seeing a lorry weigher at [facility]. Transition of care: patient was not received from another setting of care. Onset of symptoms was April 15, 2019. Risk Assessment: Do you want to hurt yourself or someone else? Patient reports no desire to harm self or others. Initial Sepsis Screen: Does the patient meet any 2 criteria? HR > 90 bpm. Yes Does the patient have a suspected source of infection? Yes: Other: Biopsy on 04/10/19. Care prior to arrival: Medication(s) given: Tylenol. 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 - Social history:: Smoking status: Patient/guardian denies using tobacco. - Ebola Screening: : No symptoms or risks identified at this time. Screenin:23 Abuse screen: Denies threats or abuse. Nutritional screening: No deficits noted. ea Tuberculosis screening: No symptoms or risk factors identified. Fall Risk None identified. Assessment: 20:30 General: Appears in no apparent distress. comfortable, Behavior is calm, cooperative, jb4 appropriate for age. Pain: Complains of pain in low back area Pain does not radiate. Pain currently is 3 out of 10 on a pain scale. Neuro: Level of Consciousness is awake, alert, obeys commands, Oriented to person, place, time, situation. Cardiovascular: Patient's skin is warm and dry. Respiratory: Airway is patent Respiratory effort is even, unlabored, Respiratory pattern is regular, symmetrical. GI: No signs and/or symptoms were reported involving the gastrointestinal system. : Reports pain in right flank(s). EENT: No signs and/or symptoms were reported regarding the EENT system. Derm: Skin is intact, Skin is pink, warm \T\ dry. Musculoskeletal: Circulation, motion, and sensation intact. Range of motion: intact in all extremities. 21:30 Reassessment: Patient appears in no apparent distress at this time. Patient and/or jb4 family updated on plan of care and expected duration. Pain level reassessed. Patient is alert, oriented x 3, equal unlabored respirations, skin warm/dry/pink. 22:03 Reassessment: Pt to ct. jb4 23:00 Reassessment: Patient appears in no apparent distress at this time. Patient and/or jb4 family updated on plan of care and expected duration. Pain level reassessed. Patient is alert, oriented x 3, equal unlabored respirations, skin warm/dry/pink. 04/16 00:00 Reassessment: Patient appears in no apparent distress at this time. Patient and/or jb4 family updated on plan of care and expected duration. Pain level reassessed. Patient is alert, oriented x 3, equal unlabored respirations, skin warm/dry/pink. 01:31 Reassessment: Patient appears in no apparent distress at this time. Patient and/or jb4 family updated on plan of care and expected duration. Pain level reassessed. Patient is alert, oriented x 3, equal unlabored respirations, skin warm/dry/pink. 02:26 Reassessment: Patient appears in no apparent distress at this time. Patient and/or jb4 family updated on plan of care and expected duration. Pain level reassessed. Patient is alert, oriented x 3, equal unlabored respirations, skin warm/dry/pink. PT transferred to receiving facility via EMS. Vital Signs: 04/15 20:23 BP 135 / 77; Pulse 130; Resp 18; Temp 98.9; Pulse Ox 100% on R/A; Weight 87.54 kg; ea Height 5 ft. 3 in. (160.02 cm); 21:30 BP 124 / 64; Pulse 108; Resp 16; Pulse Ox 100% on R/A; jb4 23:30 BP 130 / 49; Pulse 107; Resp 16; Pulse Ox 100% on R/A; jb4 04/16 00:00 BP 139 / 72; Pulse 117; Resp 16; Pulse Ox 100% on R/A; jb4 01:00 BP 129 / 66; Pulse 111; Resp 16; Pulse Ox 100% on R/A; jb4 01:30 BP 140 / 56; Pulse 106; Resp 16; Pulse Ox 100% on R/A; jb4 04/15 20:23 Body Mass Index 34.19 (87.54 kg, 160.02 cm) ea ED Course: 04/15 19:57 Patient arrived in ED. as 19:57 Garry Ibarra MD is Private Physician. as 20:13 Abelardo Thompson, ANDRIA is Primary Nurse. jb4 20:23 Triage completed. ea 20:25 Jeff Snyder MD is Attending Physician. [facility] [place] 20:26 Patient has correct armband on for positive identification. Placed in gown. Bed in low ea position. Call light in reach. 20:27 Arm band placed on right wrist. Patient placed in an exam room, on a stretcher, on ea pulse oximetry. 20:40 First set of blood cultures drawn by lab staff. jb4 20:45 Inserted saline lock: 20 gauge in right forearm, using aseptic technique. Blood jb4 collected. 20:45 Initial lab(s) drawn, by mi, sent to lab. Second set of blood cultures drawn by me. jb4 20:52 Chest Single View XRAY In Process Unspecified. EDMS 22:20 CT Abd/Pelvis - IV Contrast Only In Process Unspecified. EDMS 04/16 01:30 No provider procedures requiring assistance completed. Patient transferred, IV remains jb4 in place. Administered Medications: 04/15 21:01 Drug: Rocephin 1 grams Route: IV; Rate: per protocol; Site: left forearm; jb4 21:03 Follow up: Response: No adverse reaction; IV Status: Completed infusion; IV Intake: [id number] 21:04 Drug: NS 0.9% (30 ml/kg) 30 ml/kg Route: IV; Rate: bolus; Site: left forearm; jb4 23:00 Follow up: Response: No adverse reaction; IV Status: Completed infusion; IV Intake: jb4 2626.2ml 04/16 00:10 Drug: Zosyn 3.375 grams Route: IVPB; Infused Over: 60 mins; Site: left forearm; jb4 01:10 Follow up: Response: No adverse reaction; IV Status: Completed infusion; IV Intake: jb4 100ml 01:45 Drug: NS 0.9% 1000 ml Route: IV; Rate: 125 ml/hr; Site: right forearm; jb4 02:30 Follow up: Response: No adverse reaction; IV Status: Infusion continued upon transfer jb4 02:42 Drug: Zofran 4 mg Route: IVP; Site: left forearm; jb4 02:46 Follow up: Response: No adverse reaction; Medication administered at discharge. jb4 02:46 Drug: fentaNYL (PF) 25 mcg {Note: Rass score 0.} Route: IVP; Site: left forearm; jb4 02:46 Follow up: Response: No adverse reaction; Pain is decreased; Medication administered at jb4 discharge. Intake: 04/15 21:03 IV: 10ml; Total: 10ml. jb4 23:00 IV: 2626ml; Total: 2636ml. jb4 04/16 01:10 IV: 100ml; Total: 2736ml. jb4 Outcome: 04/15 23:08 ER care complete, transfer ordered by MD. sweeney 04/16 01:30 Transferred by ground EMS . to [facility], Transfer form jb4 completed. X-rays sent w/ patient. Condition: stable Discharge instructions given to patient, family, Instructed on the need for transfer, Demonstrated understanding of instructions. 02:47 Patient left the ED. jb4 Signatures: Dispatcher [employer] Jeff Perez MD MD cha Martinez, Amelia as Bryson, James, RN RN jb4 [place] Tovar RN RN ea Corrections: (The following items were deleted from the chart) 01:30 01:00 BP 129 / 66; Pulse 11bpm; Resp 16bpm; Pulse Ox 100% RA; jb4 jb4
--- NOTE | 2019-04-15 23:13 | EDPHYS ---
Physician Documentation [facility] Name: Oscar Gong Age: 18 yrs Sex: Female : 2000 Arrival Date: 04/15/2019 Time: 19:57 Bed 4 Private MD: Garry Ibarra S ED Physician Jeff Snyder HPI: 04/15 20:28 This 18 yrs old Female presents to ER via Ambulatory with complaints of Fever, patel Flank Pain - renal biopsy 04/10. 20:28 The patient reports fever, that was measured at 101 degrees Fahrenheit. Onset: The patel symptoms/episode began/occurred 1 day(s) ago. Modifying factors: there are no obvious modifying factors. Associated signs and symptoms: Pertinent positives: backache, chills. Severity of symptoms: At their worst the symptoms were mild moderate in the emergency department the symptoms are unchanged. The patient has not experienced similar symptoms in the past. 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 - Social history:: Smoking status: Patient/guardian denies using tobacco. - Ebola Screening: : No symptoms or risks identified at this time. ROS: 20:30 Constitutional: Negative for fever, chills, and weight loss, Eyes: Negative for injury, patel pain, redness, and discharge, ENT: Negative for injury, pain, and discharge, Neck: Negative for injury, pain, and swelling, Cardiovascular: Negative for chest pain, palpitations, and edema, : Negative for injury, bleeding, discharge, and swelling, MS/Extremity: Negative for injury and deformity, Skin: Negative for injury, rash, and discoloration, Neuro: Negative for headache, weakness, numbness, tingling, and seizure, Psych: Negative for depression, anxiety, suicide ideation, homicidal ideation, and hallucinations, Allergy/Immunology: Negative for hives, rash, and allergies, Endocrine: Negative for neck swelling, polydipsia, polyuria, polyphagia, and marked weight changes, Hematologic/Lymphatic: Negative for swollen nodes, abnormal bleeding, and unusual bruising. 20:30 Abdomen/GI: Positive for abdominal pain. 20:30 Back: Positive for pain at rest, pain with movement, flank pain, on the left, radiated pain, of the left low back and left mid back. Exam: 20:30 Constitutional: This is a well developed, well nourished patient who is awake, alert, patel and in no acute distress. Head/Face: Normocephalic, atraumatic. Eyes: Pupils equal round and reactive to light, extra-ocular motions intact. Lids and lashes normal. Conjunctiva and sclera are non-icteric and not injected. Cornea within normal limits. Periorbital areas with no swelling, redness, or edema. ENT: Nares patent. No nasal discharge, no septal abnormalities noted. Tympanic membranes are normal and external auditory canals are clear. Oropharynx with no redness, swelling, or masses, exudates, or evidence of obstruction, uvula midline. Mucous membranes moist. Neck: Trachea midline, no thyromegaly or masses palpated, and no cervical lymphadenopathy. Supple, full range of motion without nuchal rigidity, or vertebral point tenderness. No Meningismus. Chest/axilla: Normal chest wall appearance and motion. Nontender with no deformity. No lesions are appreciated. Respiratory: Lungs have equal breath sounds bilaterally, clear to auscultation and percussion. No rales, rhonchi or wheezes noted. No increased work of breathing, no retractions or nasal flaring. Female : Normal external genitalia. Skin: Warm, dry with normal turgor. Normal color with no rashes, no lesions, and no evidence of cellulitis. MS/ Extremity: Pulses equal, no cyanosis. Neurovascular intact. Full, normal range of motion. Neuro: Awake and alert, GCS 15, oriented to person, place, time, and situation. Cranial nerves II-XII grossly intact. Motor strength 5/5 in all extremities. Sensory grossly intact. Cerebellar exam normal. Normal gait. Psych: Awake, alert, with orientation to person, place and time. Behavior, mood, and affect are within normal limits. 20:30 Cardiovascular: Rate: tachycardic, Rhythm: regular, Pulses: Pulses are 4+ in bilateral radial, brachial, femoral, popliteal, posterior tibial and and dorsalis pedis arteries.. Heart sounds: normal, Edema: is not appreciated, JVD: is not appreciated. Vital Signs: 20:23 BP 135 / 77; Pulse 130; Resp 18; Temp 98.9; Pulse Ox 100% on R/A; Weight 87.54 kg; ea Height 5 ft. 3 in. (160.02 cm); 21:30 BP 124 / 64; Pulse 108; Resp 16; Pulse Ox 100% on R/A; jb4 23:30 BP 130 / 49; Pulse 107; Resp 16; Pulse Ox 100% on R/A; 4 04/16 00:00 BP 139 / 72; Pulse 117; Resp 16; Pulse Ox 100% on R/A; jb4 01:00 BP 129 / 66; Pulse 111; Resp 16; Pulse Ox 100% on R/A; jb4 01:30 BP 140 / 56; Pulse 106; Resp 16; Pulse Ox 100% on R/A; 4 04/15 20:23 Body Mass Index 34.19 (87.54 kg, 160.02 cm) ea MDM: 04/15 20:25 Patient medically screened. [facility] 20:31 Data reviewed: vital signs, nurses notes, lab test result(s), EKG, radiologic studies. [facility] 04/15 20:27 Order name: Basic Metabolic Panel [facility] 04/15 20:27 Order name: Blood Culture Adult (2) [facility] 04/15 20:27 Order name: CBC with Diff [facility] 04/15 20:27 Order name: Ckmb; Complete Time: 23:09 [facility] 04/15 20:27 Order name: CPK; Complete Time: 23:09 [facility] 04/15 20:27 Order name: Lactate; Complete Time: 23:09 [facility] 04/15 20:27 Order name: LFT's; Complete Time: 23:09 [facility] 04/15 20:27 Order name: Lipase; Complete Time: 23:09 [facility] 04/15 20:27 Order name: Procalcitonin; Complete Time: 23:09 [facility] 04/15 20:27 Order name: Protime (+inr); Complete Time: 23:09 [facility] 04/15 20:27 Order name: Ptt, Activated; Complete Time: 23:09 [facility] 04/15 20:27 Order name: Troponin (emerg Dept Use Only); Complete Time: 23:09 [facility] 04/15 20:27 Order name: Urine Microscopic Only; Complete Time: 23:09 [facility] 04/15 20:27 Order name: Urine Culture [facility] 04/15 20:27 Order name: Chest Single View XRAY; Complete Time: 23:09 [facility] 04/15 20:27 Order name: Accucheck; Complete Time: 20:47 [facility] 04/15 20:27 Order name: Cardiac monitoring; Complete Time: 20:47 [facility] 04/15 20:27 Order name: CT Abd/Pelvis - IV Contrast Only [facility] 04/15 20:28 Order name: Basic Metabolic Panel; Complete Time: 23:09 [facility] 04/15 20:28 Order name: Blood Culture [facility] 04/15 20:28 Order name: CBC with Automated Diff; Complete Time: 23:09 [facility] 04/15 21:05 Order name: Glucose, Ancillary Testing; Complete Time: 23:09 [facility] 04/15 22:05 Order name: Urine Dipstick--Ancillary (enter results); Complete Time: 23:09 [facility] 04/15 22:05 Order name: Urine --Ancillary (enter results); Complete Time: 23:09 [facility] 04/15 20:27 Order name: EKG - Nurse/Tech; Complete Time: 20:47 [facility] 04/15 20:27 Order name: IV Saline Lock - Large Bore; Complete Time: 20:48 [facility] 04/15 20:27 Order name: Labs collected and sent; Complete Time: 20:48 [facility] 04/15 20:27 Order name: O2 Per Protocol; Complete Time: 20:48 [facility] 04/15 20:27 Order name: O2 Sat Monitoring; Complete Time: 20:48 [facility] 04/15 20:27 Order name: Urine Dipstick-Ancillary (obtain specimen); Complete Time: 22:05 [facility] Administered Medications: 21:01 Drug: Rocephin 1 grams Route: IV; Rate: per protocol; Site: left forearm; jb4 21:03 Follow up: Response: No adverse reaction; IV Status: Completed infusion; IV Intake: [id number] 21:04 Drug: NS 0.9% (30 ml/kg) 30 ml/kg Route: IV; Rate: bolus; Site: left forearm; jb4 23:00 Follow up: Response: No adverse reaction; IV Status: Completed infusion; IV Intake: jb4 2626.2ml 04/16 00:10 Drug: Zosyn 3.375 grams Route: IVPB; Infused Over: 60 mins; Site: left forearm; jb4 01:10 Follow up: Response: No adverse reaction; IV Status: Completed infusion; IV Intake: jb4 100ml 01:45 Drug: NS 0.9% 1000 ml Route: IV; Rate: 125 ml/hr; Site: right forearm; jb4 02:30 Follow up: Response: No adverse reaction; IV Status: Infusion continued upon transfer jb4 02:42 Drug: Zofran 4 mg Route: IVP; Site: left forearm; jb4 02:46 Follow up: Response: No adverse reaction; Medication administered at discharge. jb4 02:46 Drug: fentaNYL (PF) 25 mcg {Note: Rass score 0.} Route: IVP; Site: left forearm; jb4 02:46 Follow up: Response: No adverse reaction; Pain is decreased; Medication administered at jb4 discharge. Disposition: 04/15/19 23:08 Transfer ordered to [facility]. Diagnosis are Fever, unspecified, Postprocedural hemorrhage and hematoma of a genitourinary system organ or structure following a genitourinary system procedure, Anemia, unspecified. - Reason for transfer: Higher level of care. - Accepting physician is to [facility]. - Condition is Fair. - Problem is new. - Symptoms have improved. Signatures: Dispatcher [employer] EDMS Jeff Snyder MD MD cha Bryson, James, RN RN jbFlorida Luna RN RN ea Corrections: (The following items were deleted from the chart) 04/15 23:10 23:08 04/15/2019 23:08 Transfer ordered to [facility]. Diagnosis is patel Fever, unspecified; Postprocedural hemorrhage and hematoma of a genitourinary system organ or structure following a genitourinary system procedure. Reason for transfer: Higher level of care. Accepting physician is to [facility]. Condition is Fair. Problem is new. Symptoms have improved. patel 04/16 02:47 04/15 23:10 04/15/2019 23:08 Transfer ordered to [facility]. jb4 Diagnosis is Fever, unspecified; Postprocedural hemorrhage and hematoma of a genitourinary system organ or structure following a genitourinary system procedure; Anemia, unspecified. Reason for transfer: Higher level of care. Accepting physician is to [facility]. Condition is Fair. Problem is new. Symptoms have improved. patel
[2019-04-15] MEDS ORDERED: PIPER/TAZO/NS 3.375gm 3.375 GM/100 ML BAG ONE (23:59)
[2019-04-16] MEDS ORDERED: NA CHLORIDE 0.9% 1,000 ML ONE (01:45)
[2019-04-16] MEDS ORDERED: MORPHINE 4 MG/ML SYR ONE (02:36)
[2019-04-16] MEDS ORDERED: ONDANSETRON 4 MG/2 ML VIAL ONE (02:37)
[2019-04-16] MEDS ORDERED: FENTANYL CITR 100 MCG/2 ML ONE (02:40)
[2019-04-16 03:56] VITALS: O2SAT 100
[2019-04-16 03:58] VITALS: TEMP 98.9
[2019-04-16 04:03] VITALS: BP 140/56
--- NOTE | 2019-04-16 11:00 | RAD REPORT ---
EXAM DESCRIPTION: Abdomen Pelvis W Contrast CLINICAL HISTORY: Flank pain. Recent renal biopsy. TECHNIQUE: CT scan of the abdomen and pelvis was performed with intravenous contrast. 5 mm arterial phase axial images of the abdomen were obtained. 5 mm venous phase axial images of the abdomen and pelvis were obtained along with coronal and sagitta l reformatted images. DOSE OPTIMIZATION: This facility uses dose optimization techniques as appropriate to perform exams, including at least one of the following techniques: 1. Automated exposure control. 2. Adjustment of the mA and/or kV according to patient size (this includes techniques or standardized protocols for targeted exams where dose is matched to the indication/reason for exam, i.e. extremiti es or head). 3. Use of iterative reconstructive technique. INTRAVENOUS CONTRAST: Not documented. Please refer to medical record. COMPARISON: None. FINDINGS: Lung Bases: Normal. Liver: Normal. Spleen: Normal. Pancreas: Normal. Gallbladder: Surgically absent. Adrenal Glands: Normal. Kidneys: There is a large perinephric hematoma on the left grossly measuring 6 x 8 x 13 cm.. There is a small paranephric hematoma posteriorly on the left There is secondary mild displacement of the left kidney anteriorly. There is no evidence of active arterial extravasation. Retroperitoneal Structures: Normal. Bowel Survey: There is increased stool throughout the colon. The appendix is unremarkable. The distal ileum is unremarkable. Uterus and Adnexa: Normal. Prostate Gland: Normal in size. Urinary Bladder: Normal. Peritoneal Cavity: Normal. Mesenteric Structures: Normal. Abdominal Wall: No hernia. Bony Structures: No suspicious lesions. IMPRESSION: 1. Large perinephric hematoma on the left. 2. Small paranephric hematoma on the left. 3. No evidence of active arterial extravasation in the left renal area. 4. Increased stool throughout the colon. NOTIFICATION: Results were discussed with Dr. Jeff Snyder at 10:35 PM. Electronically signed by: Jose Marvin MD 04/15/2019 10:35 PM FACILITY WORKER Due to temporary technical issues with the PACS/Fluency reporting system, reports are being signed by the in house radiologist as a courtesy to ensure prompt reporting. The interpreting radiologist is f ully responsible for the content of the report.
--- NOTE | 2019-04-16 11:58 | EKG ---
Test Date: 2019-04-15 Test Time: 20:53:28 Sampler Radioactive Waste: SIRENA MEASUREMENT RESULTS: Intervals: Rate: 116 PA: 158 QRSD: 82 QT: 310 QTc: 430 [place]: P: 41 PA: 158 QRS: 56 T: 38 INTERPRETIVE STATEMENTS: Sinus tachycardia Otherwise normal ECG Compared to ECG 05/29/2018 14:17:37 Sinus rhythm no longer present Electronically Signed On 04-16-19 11:57:01 [place] by Paul Kwong
== END 2019-04-16 02:47 | disposition short-term general hospital (02) ==
LOC: ER 19:56
DX: N99.820 Postprocedural hemorrhage of a genitourinary system organ or structure following a genitourinary system procedure (principal); D64.9 Anemia, unspecified; Z88.5 Allergy status to narcotic agent
CPT/HCPCS: 96365; 96367; 96361; 93005; 87040 ×2; 87088; 85025; 87086; 80048; 36415; 82550; 81025; 85610; 82947; 80076; 83605; 85730; 84484; 82553; 83690; 84145; 74177; 71045; 96375; 99285; 96366; Q9967; J3010; J2543; J0696; J7030 ×2; J2405; 81003; 81015

== ENCOUNTER 2019-06-19 15:17 | Emergency (ER) | payer BC ==
[2019-06-19 16:14] LABS: Absolute Lymphocytes (CBC) 0.7 K/uL (0.7-4.9); Basophils % 0.2 % (0-1.3); Lymphocytes % 5.9 % (15.3-44.8); MPV 8.8 fL (7.6-11.3); RBC Red Blood Cell Count 4.58 M/uL (3.86-4.86)
[2019-06-19 16:31] LABS: BUN Blood Urea Nitrogen 11 mg/dL (7-18); Bicarbonate 26 mmol/L (21-32); Glucose Level 128 mg/dL (74-106); Potassium 4.1 mmol/L (3.5-5.1); Sodium Level 139 mmol/L (136-145)
[2019-06-19 16:32] LABS: ALT/SGPT 26 U/L (12-78); AST/SGOT 17 U/L (15-37); Albumin 3.7 g/dL (3.4-5.0); Alkaline Phosphatase 52 U/L (45-117); Bilirubin Direct < 0.1 mg/dL (0-0.2); Bilirubin Total 0.2 mg/dL (0.2-1.0); Lipase 102 U/L (73-393); Protein, Total 7.1 g/dL (6.4-8.2)
[2019-06-19] MEDS ORDERED: NA CHLORIDE 0.9% 1,000 ML ONE (16:32)
[2019-06-19 17:15] LABS: Blood Morphology Comment NOT SEEN (NOT SEEN); Platelet Estimate ADEQ; Urine White Blood Cell Casts OK
--- NOTE | 2019-06-19 17:22 | RAD REPORT ---
EXAM DESCRIPTION: CTAbdomen Pelvis W Contrast - 06/19/2019 4:53 pm CLINICAL HISTORY: Abdominal pain. ABD PAIN COMPARISON: Abdomen Pelvis W Contrast dated 04/15/2019 TECHNIQUE: Biphasic CT imaging of the abdomen and pelvis was performed with 100 ml non-ionic IV cont rast. All CT scans are performed using dose optimization technique as appropriate and may include automated exposure control or mA/KV adjustment according to patient size. FINDINGS: The lung bases are clear.Cholecystectomy clips. The liver, spleen, pancreas, adrenal glands and kidneys are within normal limits. No bowel obstruction, free air, free fluid or abscess. The appendix is normal. No evidence of signi ficant lymphadenopathy. No suspicious bony findings. Trace pelvic free fluid with 4 cm right adnexal cyst noted. IMPRESSION: No acute intra-abdominal or pelvic finding.
--- NOTE | 2019-06-19 17:42 | ER ---
Nurse's Notes [facility] Name: Oscar Gong Age: 18 yrs Sex: Female : 2000 Arrival Date: 06/19/2019 Time: 15:23 Bed 20 Private MD: Garry Ibarra S Diagnosis: Upper abdominal pain, unspecified;Diarrhea, unspecified Presentation: 06/19 15:27 Chief complaint: Patient states: bloody diarrhea that began today. Pt c/o abdominal aa5 pain. Pt denies vomiting. Pt's mother states "she was diagnosed with lupus back in March". Coronavirus screen: The patient has NOT traveled to [place] in the past 14 days. The patient has NOT had contact with known and/or suspected case of Coronavirus. Ebola Screen: Patient negative for fever greater than or equal to 101.5 degrees Fahrenheit, and additional compatible Ebola Virus Disease symptoms. Initial Sepsis Screen: Does the patient meet any 2 criteria? No. Patient's initial sepsis screen is negative. Does the patient have a suspected source of infection? No. Patient's initial sepsis screen is negative. Risk Assessment: Do you want to hurt yourself or someone else? Patient reports no desire to harm self or others. 15:27 Acuity: DAVID 3 aa5 15:27 Method Of Arrival: Ambulatory aa5 15:35 Onset of symptoms was June 19, 2019. 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 - Social history:: Smoking status: Patient denies any tobacco usage or history of. Screenin:35 Abuse screen: Denies threats or abuse. Denies injuries from another. Nutritional ca1 screening: No deficits noted. Tuberculosis screening: No symptoms or risk factors identified. Fall Risk IV access (20 points). Assessment: 15:35 General: Appears in no apparent distress. comfortable, Behavior is calm, cooperative, ca1 appropriate for age. Pain: Complains of pain in abdomen and left upper quadrant and right upper quadrant and epigastric area Pain began 4 hours ago. Neuro: Level of Consciousness is awake, alert, obeys commands, Oriented to person, place, time, situation, Appropriate for age. Cardiovascular: Heart tones S1 S2 present Capillary refill < 3 seconds Patient's skin is warm and dry. Respiratory: Airway is patent Respiratory effort is even, unlabored, Respiratory pattern is regular, symmetrical, Breath sounds are clear bilaterally. GI: Abdomen is round non-distended, Bowel sounds present X 4 quads. Abd is soft and non tender X 4 quads. Reports diarrhea, bloody stool. : No signs and/or symptoms were reported regarding the genitourinary system. EENT: No deficits noted. No signs and/or symptoms were reported regarding the EENT system. Derm: Skin is intact, is healthy with good turgor, Skin is pink, warm \\T\\ dry. Musculoskeletal: Circulation, motion, and sensation intact. Capillary refill < 3 seconds, Range of motion: intact in all extremities. 16:40 Reassessment: Patient appears in no apparent distress at this time. Patient and/or ca1 family updated on plan of care and expected duration. Pain level reassessed. Patient is alert, oriented x 3, equal unlabored respirations, skin warm/dry/pink. Vital Signs: 15:30 BP 101 / 71; Pulse 107; Resp 18 S; Temp 98.9(O); Pulse Ox 98% on R/A; Weight 90.72 kg aa5 (R); Height 5 ft. 2 in. (157.48 cm) (R); 16:40 BP 120 / 62; Pulse 106; Resp 17 S; Pulse Ox 99% on R/A; ca1 15:30 Body Mass Index 36.58 (90.72 kg, 157.48 cm) aa5 ED Course: 15:23 Patient arrived in ED. mr 15:23 Garry Ibarra MD is Private Physician. mr 15:27 Arm band placed on. aa5 15:29 Triage completed. aa5 15:30 [facility]C [facility]. kb 15:30 Jeff Snyder MD is Attending Physician. kb 15:35 Patient has correct armband on for positive identification. Placed in gown. Bed in low ca1 position. Call light in reach. Side rails up X 1. Pulse ox on. NIBP on. Warm blanket given. 15:37 Radha Upton RN is Primary Nurse. ca1 15:50 Missed attempt(s): 22 gauge in right upper arm. Bleeding controlled, band aid applied, ca1 catheter tip intact. 16:10 No provider procedures requiring assistance completed. Initial lab(s) drawn, by ED ca1 staff, sent to lab. Inserted saline lock: 22 gauge in right antecubital area, using aseptic technique. ,using aseptic technique. by Teri power washer Blood collected. 16:55 CT Abd/Pelvis - IV Contrast Only In Process Unspecified. EDMS 17:30 Report given to ANDRIA Block. ca1 Administered Medications: 16:30 Drug: NS 0.9% 1000 ml Route: IV; Rate: 1000 ml; Site: right antecubital; ca1 Outcome: 17:41 Discharge ordered by . kb 17:53 Patient left the ED. vc Signatures: Dispatcher [employer] EDMS Ena Romero, TRANSFORMATION CONSULTANT-C TRANSFORMATION CONSULTANT-Jody Cai mr Engel, Magda, RN RN aa5 Radha Upton RN RN ca1 Cara, ANDRIA Block RN vc
--- NOTE | 2019-06-19 17:42 | EDPHYS ---
Physician Documentation [facility] Name: Oscar Gong Age: 18 yrs Sex: Female : 2000 Arrival Date: 06/19/2019 Time: 15:23 Bed 20 Private MD: Garry Ibarra S ED Physician Jfef Snyder HPI: 06/19 15:48 This 18 yrs old Female presents to ER via Ambulatory with complaints of kb Abdominal Pain, Bloody Stools. 15:48 The patient presents with abdominal pain in the upper abdomen. Onset: The kb symptoms/episode began/occurred today, at 12:00. The symptoms do not radiate. Associated signs and symptoms: Pertinent positives: blood in stools, diarrhea. The symptoms are described as constant. Modifying factors: The symptoms are alleviated by nothing, the symptoms are aggravated by nothing. Severity of pain: At its worst the pain was moderate in the emergency department the pain is unchanged. The patient has not experienced similar symptoms in the past. The patient has not recently seen a physician. Pt reports upper abd pain and bloody diarrhea (3 episodes) that started after lunch today. . 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 - Social history:: Smoking status: Patient denies any tobacco usage or history of. ROS: 15:47 Constitutional: Negative for fever, chills, and weight loss, ENT: Negative for injury, kb pain, and discharge, Neck: Negative for injury, pain, and swelling, Cardiovascular: Negative for chest pain, palpitations, and edema, Respiratory: Negative for shortness of breath, cough, wheezing, and pleuritic chest pain, Back: Negative for injury and pain, MS/Extremity: Negative for injury and deformity, Skin: Negative for injury, rash, and discoloration, Neuro: Negative for headache, weakness, numbness, tingling, and seizure. 15:47 Abdomen/GI: Positive for abdominal pain, diarrhea, rectal bleeding. Exam: 15:47 Constitutional: This is a well developed, well nourished patient who is awake, alert, kb and in no acute distress. Head/Face: Normocephalic, atraumatic. Neck: Trachea midline, no thyromegaly or masses palpated, and no cervical lymphadenopathy. Supple, full range of motion without nuchal rigidity, or vertebral point tenderness. No Meningismus. Chest/axilla: Normal chest wall appearance and motion. Nontender with no deformity. No lesions are appreciated. Cardiovascular: Regular rate and rhythm with a normal S1 and S2. No gallops, murmurs, or rubs. Normal PMI, no JVD. No pulse deficits. Respiratory: Lungs have equal breath sounds bilaterally, clear to auscultation and percussion. No rales, rhonchi or wheezes noted. No increased work of breathing, no retractions or nasal flaring. Back: No spinal tenderness. No costovertebral tenderness. Full range of motion. Skin: Warm, dry with normal turgor. Normal color with no rashes, no lesions, and no evidence of cellulitis. MS/ Extremity: Pulses equal, no cyanosis. Neurovascular intact. Full, normal range of motion. Neuro: Awake and alert, GCS 15, oriented to person, place, time, and situation. Cranial nerves II-XII grossly intact. Motor strength 5/5 in all extremities. Sensory grossly intact. Cerebellar exam normal. Normal gait. 15:47 Abdomen/GI: Inspection: abdomen appears normal, Bowel sounds: normal, in all quadrants, Palpation: soft, in all quadrants, mild abdominal tenderness, in the epigastric area and right upper quadrant, moderate abdominal tenderness, in the left upper quadrant. 17:39 Abdomen/GI: Rectal exam: rectal tone normal, Stool: normal, guaiac negative, kb hemorrhoid(s), are not appreciated, tenderness, is not appreciated. Vital Signs: 15:30 BP 101 / 71; Pulse 107; Resp 18 S; Temp 98.9(O); Pulse Ox 98% on R/A; Weight 90.72 kg aa5 (R); Height 5 ft. 2 in. (157.48 cm) (R); 16:40 BP 120 / 62; Pulse 106; Resp 17 S; Pulse Ox 99% on R/A; ca1 15:30 Body Mass Index 36.58 (90.72 kg, 157.48 cm) aa5 MDM: 15:32 Patient medically screened. kb 15:48 Data reviewed: vital signs, nurses notes. Data interpreted: Pulse oximetry: on room air kb is 98 %. Interpretation: normal. 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 06/19 15:40 Order name: Basic Metabolic Panel; Complete Time: 16:34 kb 06/19 15:40 Order name: CBC with Diff; Complete Time: 17:22 kb 06/19 15:40 Order name: Hepatic Function; Complete Time: 16:34 kb 06/19 15:40 Order name: Lipase; Complete Time: 16:34 kb 06/19 15:40 Order name: IV Saline Lock; Complete Time: 16:47 kb 06/19 16:34 Order name: CT Abd/Pelvis - IV Contrast Only; Complete Time: 17:28 kb 06/19 16:39 Order name: CBC Smear Scan; Complete Time: 17:22 EDMS 06/19 16:40 Order name: Urine Dipstick--Ancillary (enter results) [facility] 06/19 16:40 Order name: Urine --Ancillary (enter results) [facility] 06/19 15:40 Order name: Labs collected and sent; Complete Time: 16:47 kb 06/19 15:40 Order name: Urine Test (obtain specimen); Complete Time: 16:46 kb 06/19 15:40 Order name: Urine Dipstick-Ancillary (obtain specimen); Complete Time: 16:46 kb Administered Medications: 16:30 Drug: NS 0.9% 1000 ml Route: IV; Rate: 1000 ml; Site: right antecubital; ca1 Disposition: 06/19/19 17:41 Discharged to Home. Impression: Upper abdominal pain, unspecified, Diarrhea, unspecified. - Condition is Stable. - Discharge Instructions: Abdominal Pain, Adult, [id number], Diarrhea, Adult, [id number], Rectal Bleeding, [id number]. - Medication Reconciliation Form, Thank You Letter, Antibiotic Education, Prescription Opioid Use form. - Follow up: Emergency Department; When: As needed; Reason: Worsening of condition. Follow up: Private Physician; When: 2 - 3 days; Reason: Recheck today's complaints, Continuance of care, Re-evaluation by your physician. Addendum: 06/21/2019 17:50 Co-signature as Attending Physician, Jeff Snyder MD I agree with the assessment and c simental plan of care. Signatures: Dispatcher [employer] EDNH Thong Romeroistin, ALTERNATIVE ENERGY TECHNICIAN-C ALTERNATIVE ENERGY TECHNICIAN-Ckb Jeff Snyder MD MD cha Calderon, Audri, RN RN aa5 Radha Upton RN RN ca1 Mckayla Marroquin RN RN vc Corrections: (The following items were deleted from the chart) 06/19 17:53 17:41 06/19/2019 17:41 Discharged to Home. Impression: Upper abdominal pain, vc unspecified; Diarrhea, unspecified. Condition is Stable. Forms are Medication Reconciliation Form, Thank You Letter, Antibiotic Education, Prescription Opioid Use. Follow up: Emergency Department; When: As needed; Reason: Worsening of condition. Follow up: Private Physician; When: 2 - 3 days; Reason: Recheck today's complaints, Continuance of care, Re-evaluation by your physician. kb
[2019-06-19 17:52] LABS: Urine Blood TRACE (NEG); Urine Glucose NEGATIVE (NEG); Urine Protein 1+ (NEG)
[2019-06-19 18:26] VITALS: TEMP 98.9
[2019-06-19 18:28] VITALS: BP 120/62; O2SAT 99
--- OUTSIDE RECORDS SUMMARY | 2019-06-19 21:15 | XMS REPORT ---
:2000 [facility] Address [address] [place] [address] [address] [place] [address] Care Team Providers Name Role Phone KRYSTINA COLLIER Unavailable Unavailable DIANA LR Unavailable Unavailable ARSENIO WRIGHT Unavailable Unavailable Payers Payer Name Policy Type [...] Text Results Atomic Results Result Comments - XR CHEST 2 V 2019-05-21 10:25:00 Patient Name: PAM EASTON Unit No: [id number] EXAMS: CPT CODE: [id number] XR CHEST 2 V 29927 EXAM: - XR CHEST 2 V LOCATION: C3 HISTORY: M32.10 COUGH COMPARISON: 05/29/18 FINDINGS: 2 views of the chest. No indwelling lines or tubes. No pneumothorax. The lungs are clear without significant effusions. The mediastinal contours are unremarkable/unchanged. The mediastinal contours are unremarkable. No acute osseous findings are present. IMPRESSION: No acute cardiopulmonary abnormality. at 1025 Reported and signed by: Tera Chaudhry MD CC: Mike Chu Technologist: Halie L. Green, RT(R)(M) Transcrpt Date/Tm/Trnsp: 05/21/2019 (1025) t.BEVERLYR.HV2 Orig Print D/T: S: 05/21/2019 (1028) [facility] NAME: PAM EASTON [id number] [facility] [address] PHYS: Mike Meléndez [place] [address] : 2000 AGE: 18 SEX: F LOC: CECILIA PHONE #: [phone] EXAM DATE: 05/21/2019 STATUS: REG CLI FAX #: [phone] RADIOLOGY NO: PAGE 1 Signed Report TISSUE EXAM 2019-05-18 15:21:00 A previously Surgical Pathology Report reported component Case: Diagnosis Comment [id number] is no longer Authorizing Provider: reported. Diana Lr DO Collected: 04/10/2019 1152 Ordering Location: [place] [address] OP Received: 04/10/2019 1125 Pathologist: Clint Street MD Specimen: Kidney The addendum is being issued to report the results of electron microscopic evaluation. The diagnosis is unchanged. RESULTSDIAGNOSTIC ELECTRON MICROSCOPY:Thick section histology: Toluidine blue-stained sections reveal five nonsclerotic glomeruli of which 4 are examined ultrastructurally.Ultrastructur e: Examination of the glomerular ultrastructure reveals that the glomerular basement membrane are globally and irregularly thick with presence of numerous subepithelial and intramembranous immune complex type electron dense deposits, with intervening GBM spikes and segmental neomembrane formation. Mesangial/paramesangial deposits are also noted. 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 The EM images were interpreted [facility] the [facility] electronically signed by Clint Street MD on 05/18/2019 at 3:21 PMKIDNEY, LEFT, ULTRASOUND-GUIDED NEEDLE BIOPSIES- MEMBRANOUS GLOMERULONEPHRITIS, CONSISTENT WITH LUPUS NEPHRITIS CLASS V- MINIMAL TO MILD INTERSTITIAL FIBROSIS AND TUBULAR ATROPHY (5% TO 10%)- MILD ARTERIAL INTIMAL FIBROSIS- see comment Signing Pathologist Direct Phone Line: [phone] signed by Clint Street MD on 04/16/2019 at 1:20 PMPreliminary result electronically signed by Clint Street MD on 04/11/2019 at 11:50 [id number], 37561 x3, 33749, 77647 x7, [id number]-heuwnlc with 4+ proteinuria in her UA and UPC of 1.1g last month, positive for DsDNA, HLA DQ2, cardiolipin IgG and Cardiolipin IgM. Also low C4, normal serum creatinine.Pre and postop diagnosis: proteinuria, autoimmune disease disorder, essential hypertensionUltrasound-guided needle biopsy of left kidneyNative kidney, leftThe case is received in three containers, each labeled with the patient's name, accession number and "kidney".Received in formalin are two cantu soft tissue cores measuring 1.5 cm and 0.8 cm in length which are submitted in toto in A1. Received in saline are two cantu soft tissue cores measuring 1.0 cm and 0.5 cm in length which are frozen for immunofluorescence studies. Received in glutaraldehyde is a 0.2 cm in length cantu soft tissue core which is sent to the EM lab for further processing. CG/pl LIGHT MICROSCOPY: Sections show two cores of renal tissue composed of approximately 40% cortex and 60% medulla. GLOMERULI: Approximately 18 glomeruli are examined. No glomerulus is globally sclerotic/obsolescent. All glomeruli are enlarged with open peripheral capillary loops with stiff appearing glomerular basement membranes. Castillo silver stain shows few holes and spikes. No endocapillary hypercellularity, segmental scarring, necrosis, hyaline thrombi or crescents are noted.TUBULES AND INTERSTITIUM: There is mild interstitial fibrosis and tubular atrophy involving about 5% to 10% of cortical tissue. There is mild nonspecific chronic inflammation in areas of scarring.VESSELS: Branches of interlobular arteries show mild intimal sclerosis. The arterioles are unremarkable.Special stains: Ericka trichrome, PAS and Castillo silver stains were necessary for evaluation of this biopsy and showed expected staining patterns of internal control tissue matrix structures.IMMUNOFLUORESCENCE Histology: H&E-stained sections show 23 non-obsolescent glomeruli.Direct immunofluorescence findings: IgA: Glomeruli with focal segmental trace peripheral granular stainingIgG: Glomeruli with diffuse and global, peripheral granular staining 3+IgM: Glomeruli with diffuse, segmental to global, mesangial and peripheral granular staining 2+ C3: Glomeruli with focal and segmental weak peripheral staining, arterioles +C1q: Glomeruli with diffuse and global, peripheral granular staining 1+ to 2+Artesian: Glomeruli with diffuse and global, peripheral granular staining 3+, tubular protein droplets are positiveLambda: Glomeruli with diffuse and global, peripheral granular staining 2+, tubular protein droplets are positiveFibrinogen: No significant stainingIAGNOSTIC ELECTRON MICROSCOPY:Thick section histology: Toluidine blue-stained sections reveal five nonsclerotic glomeruli and one globally sclerotic glomerulus. Four non-sclerotic glomeruli are examined ultrastructurally.Ultrastructur e: Examination of the glomerular ultrastructure reveals that the glomerular basement membrane are globally and irregularly thick with presence of numerous subepithelial and intramembranous along with mesangial/ paramesangial immune complex type electron dense deposits. The foot processes are diffusely effaced..The interpretation of this case included the use of immunohistochemistry or special stains.Control Slides Examined: In-house known positive controls were evaluated along with the test tissue. These control slides run alongside of the patients sample show appropriate staining. Internal positive and negative controls when available are evaluated Immunohistochemistry technical testing was performed at [facility], Pathology Laboratory where it was developed and its performance characteristics were determined. It has not been cleared or approved by the U.S. Food and Drug Administration. The FDA has determined that such clearance or approval is not necessary. The test is used for clinical purposes. It should not be regarded as investigational or for research. This laboratory is certified under the Clinical Laboratory Improvement Amendments of 1988 (CLIA-88) as qualified to perform high complexity clinical laboratory testing. HEMOGLOBIN AND HEMATOCRIT 2019-04-16 18:27:00 Test Item Value Reference Range Comments HEMOGLOBIN (BEAKER) (test uyit=545) 8.6 GM/DL 11.2-15.7 HEMATOCRIT (BEAKER) (test accg=374) 27.8 % 34.1-44.9 CT, CTA ABDOMEN, ANGIO [id number] 17:03:00Renal CTA study. Precontrast, Arterial and Delayed phases through the abdomen/kidneys. NO ORAL CONTRAST. Please contact Dr. Menendez in angio with questions [phone].Anesthesia:-> NoneFINAL REPORT History: Left perinephric hematoma following ultrasound-guided liver biopsy. TECHNIQUE: Helical CT of the abdomen was performed prior to and following the uneventfuladministration of intravenous contrast utilizing a CTA bleed protocol, multiple windows, sagittal and coronal reformations. FINDINGS: Correlation is made with patient's previous outside CT performed onthe previous day, April 15, 2019 at 2215 hours. As before, there is a moderate size left perinephric hematoma measuring up to 13.5 x 6.5 x 3.5 cm in greatest dimensions. This hematoma does not appear to have changed significantly in size since the previous study. There is no contrast extravasation or evidence for active hemorrhage. No visible pseudoaneurysm or other vascular malformation. Evaluation for AV fistula is somewhat limited on the CT exam. The left kidney itself shows normal enhancementand normal excretion of contrast into the collecting system. The right kidney and remaining solid abdominal organs including the liver spleen, pancreas and adrenal glands are unremarkable except for a mildly prominent spleen measuring up to 13.5 cm in length. The gallbladder is absent and there are surgical clips in the gallbladder fossa consistent with prior cholecystectomy. The stomach, visible portions of the small bowel and colon are normal. There is no evidence for obstruction and no visible free air to suggest perforation. No abdominal or intraperitoneal fluid collections. No pathologic adenopathy. Vessels and bones are unremarkable. Images obtained through the lower chest and lung bases areunremarkable except for slight increased opacity in the left lower lobe, likely atelectasis. IMPRESSION: 1. Stable left perinephric hematoma without evidence for active hemorrhage or vascular anomalies. 2. Borderline splenomegaly. 3. Probable left lower lobe atelectasis. 4. Status post cholecystectomy. Signed: Madison Menendezort Verified Date/Time: 04/16/2019 17:03:04 Reading Location: [place] [address] Angio Body Reading Room PROTEIN, RANDOM [id number] 16:30:00 Test Item Value Reference Range Comments PROTEIN, URINE (BEAKER) (test bawh=8525) 271 mg/dL 0-14 CREATININE, RANDOM [id number] 14:33:00 Test Item Value Reference Range Comments CREATININE URINE (BEAKER) (test ohlk=711) 93.3 mg/dL Reference Range: No NormalsBASIC METABOLIC [id number] 05:40:00 Test Item Value Reference Range Comments SODIUM (BEAKER) (test 138 meq/L 136-145 ioip=295) POTASSIUM (BEAKER) (test 4.1 meq/L 3.5-5.1 jvub=284) CHLORIDE (BEAKER) (test 112 meq/L 98-107 yexy=116) CO2 (BEAKER) (test 18 meq/L 22-29 tfpt=799) BLOOD UREA NITROGEN 9 mg/dL 7-21 (BEAKER) (test jyrg=022) CREATININE (BEAKER) (test 0.65 mg/dL 0.57-1.25 drmk=410) GLUCOSE RANDOM (BEAKER) 92 mg/dL 70-105 (test badw=659) CALCIUM (BEAKER) (test 8.2 mg/dL 8.4-10.2 fmlb=208) EGFR (BEAKER) (test 116 mL/min/1.73 sq m ESTIMATED GFR IS NOT uuei=6806) ACCURATE CREATININE CLEARANCE IN PREDICTING GLOMERULAR FILTRATION RATE. ESTIMATED GFR IS NOT APPLICABLE FOR DIALYSIS PATIENTS. [id number] 05:37:00 Test Item Value Reference Range Comments PROTIME (BEAKER) (test mbtt=618) 14.1 seconds 11.9-14.2 INR (BEAKER) (test cbem=150) 1.1 <=5.9 PARTIAL THROMBOPLASTIN TIME (BEAKER) (test 60.1 seconds 22.5-36.0 eqpy=306) Effective 09/17/2018: PT Reference Range ChangeNew: 11.9-14.2 Previous: 11.7- 14.7RECOMMENDED COUMADIN/WARFARIN INR THERAPY RANGESSTANDARD DOSE: 2.0-3.0 Includes: PROPHYLAXIS for venous thrombosis, systemic embolization; TREATMENT for venous thrombosis and/or pulmonary embolus.HIGH RISK: Target INR is2.5-3.5 for patients wiht mechanical heart valves.CBC W/PLT COUNT & AUTO [id number] 05:18:00 Test Item Value Reference Range Comments WHITE BLOOD CELL COUNT (BEAKER) (test sdjm=385) 7.9 K/ L 3.5-10.5 RED BLOOD CELL COUNT (BEAKER) (test nurs=208) 3.14 M/ L 3.93-5.22 HEMOGLOBIN (BEAKER) (test eklw=631) 8.5 GM/DL 11.2-15.7 HEMATOCRIT (BEAKER) (test zpng=595) 27.2 % 34.1-44.9 MEAN CORPUSCULAR VOLUME (BEAKER) (test ddks=836) 86.6 fL 79.4-94.8 MEAN CORPUSCULAR HEMOGLOBIN (BEAKER) (test 27.1 pg 25.6-32.2 wtju=866) MEAN CORPUSCULAR HEMOGLOBIN CONC (BEAKER) (test 31.3 GM/DL 32.2-35.5 sliq=436) RED CELL DISTRIBUTION WIDTH (BEAKER) (test 13.4 % 11.7-14.4 gqmi=123) PLATELET COUNT (BEAKER) (test grdj=428) 133 K/CU MM 150-450 MEAN PLATELET VOLUME (BEAKER) (test voob=363) 10.9 fL 9.4-12.3 NUCLEATED RED BLOOD CELLS (BEAKER) (test 0 /100 WBC 0-0 zcuz=594) NEUTROPHILS RELATIVE PERCENT (BEAKER) (test 68 % gyjs=543) LYMPHOCYTES RELATIVE PERCENT (BEAKER) (test 21 % miuc=390) MONOCYTES RELATIVE PERCENT (BEAKER) (test 9 % ljli=260) EOSINOPHILS RELATIVE PERCENT (BEAKER) (test 0 % rake=532) BASOPHILS RELATIVE PERCENT (BEAKER) (test 0 % dery=558) NEUTROPHILS ABSOLUTE COUNT (BEAKER) (test 5.43 K/ L 1.56-6.13 rdpx=284) LYMPHOCYTES ABSOLUTE COUNT (BEAKER) (test 1.68 K/ L 1.18-3.74 rauq=253) MONOCYTES ABSOLUTE COUNT (BEAKER) (test 0.74 K/ L 0.24-0.36 ettq=770) EOSINOPHILS ABSOLUTE COUNT (BEAKER) (test 0.03 K/ L 0.04-0.36 vrlf=672) BASOPHILS ABSOLUTE COUNT (BEAKER) (test 0.02 K/ L 0.01-0.08 nvxq=706) IMMATURE GRANULOCYTES-RELATIVE PERCENT (BEAKER) 0 % 0-1 (test xxdi=9569) U/S, BIOPSY, RENAL (KIDNEY)2019-04-10 14:35:00Reason for Exam:->other proteinuria, autoimmune disorder, htnFINAL REPORT History : Proteinuria. PROCEDURE: Following informed written consent and limited sonographic examination of [...] approach and an 18-gauge Biopince needle, a totalof four passes and three 18- gauge core tissue samples were obtained from the patient's posterior lower pole left renal cortex. All samples were submitted to pathology who was present for the procedure.Overall, the patient tolerated the procedure well without immediate complications and was dischargedfrom the department in stable condition. FINDINGS: Limited sonographic examination of the left kidney performed prior to, during and following the biopsy demonstrates the needle tip in expected position within the posterior lower pole renal cortex. Following the biopsy, there are no perinephric fluid collections or evidence for hemorrhage. IMPRESSION: 1. Technically successful uncomplicated ultrasound- guided core biopsy of the left kidney. Signed: Madison Menendez Verified Date/Time: 04/10/2019 14:35:37 Reading Location: [address] Body Reading Room 02 :35 [id number] 07:58:00 Test Item Value Reference Range Comments PARTIAL THROMBOPLASTIN TIME (BEAKER) (test 70.7 seconds 22.5-36.0 gvqn=814) PROTHROMBIN [id number] 07:56:00 Test Item Value Reference Range Comments PROTIME (BEAKER) (test lwgk=078) 13.2 seconds 11.9-14.2 INR (BEAKER) (test yddz=892) 1.1 <=5.9 Effective 09/17/2018: PT Reference Range ChangeNew: 11.9-14.2 Previous: 11.7- 14.7RECOMMENDED COUMADIN/WARFARIN INR THERAPY RANGESSTANDARD DOSE: 2.0-3.0 Includes: PROPHYLAXIS for venous thrombosis, systemic embolization; TREATMENT for venous thrombosis and/or pulmonary embolus.HIGH RISK: Target INR is2.5-3.5 for patients wiht mechanical heart valves.CBC W/PLT COUNT & AUTO [id number] 07:33:00 Test Item Value Reference Range Comments WHITE BLOOD CELL COUNT (BEAKER) (test syqu=724) 5.2 K/ L 3.5-10.5 RED BLOOD CELL COUNT (BEAKER) (test yhql=336) 4.37 M/ L 3.93-5.22 HEMOGLOBIN (BEAKER) (test ydjn=110) 12.0 GM/DL 11.2-15.7 HEMATOCRIT (BEAKER) (test nrun=102) 36.4 % 34.1-44.9 MEAN CORPUSCULAR VOLUME (BEAKER) (test ofau=947) 83.3 fL 79.4-94.8 MEAN CORPUSCULAR HEMOGLOBIN (BEAKER) (test 27.5 pg 25.6-32.2 pybp=954) MEAN CORPUSCULAR HEMOGLOBIN CONC (BEAKER) (test 33.0 GM/DL 32.2-35.5 vqsv=331) RED CELL DISTRIBUTION WIDTH (BEAKER) (test 12.9 % 11.7-14.4 qqbi=514) PLATELET COUNT (BEAKER) (test khmq=955) 128 K/CU MM 150-450 MEAN PLATELET VOLUME (BEAKER) (test xyoo=477) 11.2 fL 9.4-12.3 NUCLEATED RED BLOOD CELLS (BEAKER) (test 0 /100 WBC 0-0 bmyc=374) NEUTROPHILS RELATIVE PERCENT (BEAKER) (test 57 % dnlc=481) LYMPHOCYTES RELATIVE PERCENT (BEAKER) (test 31 % nrgt=007) MONOCYTES RELATIVE PERCENT (BEAKER) (test 10 % ovme=079) EOSINOPHILS RELATIVE PERCENT (BEAKER) (test 2 % yvrr=505) BASOPHILS RELATIVE PERCENT (BEAKER) (test 1 % rqrl=543) NEUTROPHILS ABSOLUTE COUNT (BEAKER) (test 2.96 K/ L 1.56-6.13 vpfl=855) LYMPHOCYTES ABSOLUTE COUNT (BEAKER) (test 1.62 K/ L 1.18-3.74 plvg=048) MONOCYTES ABSOLUTE COUNT (BEAKER) (test 0.51 K/ L 0.24-0.36 dujn=169) EOSINOPHILS ABSOLUTE COUNT (BEAKER) (test 0.09 K/ L 0.04-0.36 wlsm=311) BASOPHILS ABSOLUTE COUNT (BEAKER) (test 0.03 K/ L 0.01-0.08 gbqy=855) IMMATURE GRANULOCYTES-RELATIVE PERCENT (BEAKER) 0 % 0-1 (test ejyb=9508) SCREEN, [id number] 07:30:00 Test Item Value Reference Range Comments TEST URINE (BEAKER) (test dumd=143) Negative CT, CHEST, WITH [id number] 12:57:00FINAL REPORT CT of the chest, abdomen [...] bladder. Status post cholecystectomy. Signed: Kenny Del Rosarioeport Verified Date/Time: 11/14/2018 12:57:23 Reading Location: [address] Consult Reading Room CT, [id number] 12:57:00FINAL REPORT CT of the chest, abdomen [...] Status post cholecystectomy. Signed: Kenny Del Rosario MDReport Verified Date/Time: 11/14/2018 12:57:23 Reading Location: [address] Ortho Consult Reading Room [id number] 11:06:00 Test Item Value Reference Range Comments POC-CREATININE (BEAKER) 0.7 mg/dL 0.6-1.3 TESTED AT [place] [address] (test ijdt=6116) [facility] [address] POC-EGFR (BEAKER) (test 107 mL/min/1.73M2 gayg=2123) ANTINUCLEAR ANTIBODIES [id number] 18:20:00 Test Item Value Reference Range Comments YOCASTA DIRECT (test code=ANADIR) Negative Negative Performed At: [facility] [address] [id number] Arreguin MD Ph:[phone] ANTINUCLEAR ANTIBODIES [id number] 11:37:00 Test Item Value Reference Range Comments YOCASTA DIRECT (test code=ANADIR) Negative Negative Performed At: [facility] [address] [place], [place] [id number] Arreguin MD Ph:[phone] AB DNA DOUBLE STRAND (test code=DNADSAB) AB TEETEE/VIDEO NEWS EDITOR FRACTION (test code=RNPAB) AB TEETEE/SM FRACTION (test code=SMAB) AB TOBY-1 (test code=JO1AB) AB SCLERODERMA (test code=SCLERAB) AB SJOGRENS A/SSA (test code=SJAAB) AB SJOGRENS B/SSB (test code=SJBAB) ANTINUCLEAR ANTIBODIES [id number] 11:37:00 Test Item Value Reference Range Comments YOCASTA DIRECT (test code=ANADIR) Negative Negative Performed At: [address] [id number] Kyle L MD Ph:[phone] AB DNA DOUBLE STRAND (test code=DNADSAB) AB TEETEE/SM FRACTION (test code=SMAB) AB TOBY-1 (test code=JO1AB) AB SCLERODERMA (test code=SCLERAB) AB SJOGRENS A/SSA (test code=SJAAB) AB SJOGRENS B/SSB (test code=SJBAB) ANTINUCLEAR ANTIBODIES [id number] 11:37:00 Test Item Value Reference Range Comments YOCASTA DIRECT (test code=ANADIR) Negative Negative Performed At: [address] [id number] Arreguin MD Ph:[phone] AB DNA DOUBLE STRAND (test code=DNADSAB) AB TOBY-1 (test code=JO1AB) AB SCLERODERMA (test code=SCLERAB) AB SJOGRENS A/SSA (test code=SJAAB) AB SJOGRENS B/SSB (test code=SJBAB) ANTINUCLEAR ANTIBODIES [id number] 11:37:00 Test Item Value Reference Range Comments YOCASTA DIRECT (test code=ANADIR) Negative Negative Performed At: [address] [id number] Arreguin MD Ph:[phone] AB DNA DOUBLE STRAND (test code=DNADSAB) AB SCLERODERMA (test code=SCLERAB) AB SJOGRENS A/SSA (test code=SJAAB) AB SJOGRENS B/SSB (test code=SJBAB) ANTINUCLEAR ANTIBODIES [id number] 11:37:00 Test Item Value Reference Range Comments YOCASTA DIRECT (test code=ANADIR) Negative Negative Performed At: [address] [id number] Arreguin MD Ph:[phone] AB DNA DOUBLE STRAND (test code=DNADSAB) AB SJOGRENS A/SSA (test code=SJAAB) AB SJOGRENS B/SSB (test code=SJBAB) ANTINUCLEAR ANTIBODIES [id number] 11:37:00 Test Item Value Reference Range Comments YOCASTA DIRECT (test code=ANADIR) Negative Negative Performed At: [address] [id number] Arreguin MD Ph:[phone] AB DNA DOUBLE STRAND (test code=DNADSAB) AB SJOGRENS B/SSB (test code=SJBAB) ANTINUCLEAR ANTIBODIES [id number] 11:37:00 Test Item Value Reference Range Comments YOCASTA DIRECT (test code=ANADIR) Negative Negative Performed At: [address] [id number] Arreguin MD Ph:[phone] AB DNA DOUBLE STRAND (test code=DNADSAB) ANTINUCLEAR ANTIBODIES [id number] 14:02:00 Test Item Value Reference Range Comments YOCASTA DIRECT (test code=ANADIR) Negative Negative Performed At: [address] [id number] Arreguin MD Ph:[phone] AB CENTROMERE (test code=CENTRAB) AB DNA DOUBLE STRAND (test code=DNADSAB) AB TEETEE/VIDEO NEWS EDITOR FRACTION (test code=RNPAB) AB TEETEE/SM FRACTION (test code=SMAB) AB TOBY-1 (test code=JO1AB) AB SCLERODERMA (test code=SCLERAB) AB SJOGRENS A/SSA (test code=SJAAB) AB SJOGRENS B/SSB (test code=SJBAB) URINALYSIS W/O [id number] 13:24:00 Test Item Value Reference Range Comments UA GLUCOSE DIPSTICK (test code=DGLUU) NEGATIVE NEGATIVE UA KETONE DIPSTICK (test code=KETU) NEGATIVE NEGATIVE UA PROTEIN DIPSTICK (test code=PROU) 2+ NEGATIVE Comments to Psychological Operations Specialist: DIP FOR PROTEINSpecimen Comment: CLEAN CATCHIS NURSE PERFORMING TEST? LIZZ CREATININE CLEARANCE [id number] 23:40:00 Test Item Value Reference Range Comments CREATININE CLEARANCE RESULT (test code=CREATCLR) 150 ml/min 70-120 CREATININE (test code=CREAT) 0.6 mg/dL 0.5-1.0 UR CREATININE RANDOM (test code=CREATU) 60.7 mg/dL UR VOLUME (test code=VOL) 2150 ML UR PROTEIN [id number] 23:40:00 Test Item Value Reference Range Comments UR PROTEIN RANDOM (test 47.1 mg/dL code=PROTU) UR PROTEIN 24HR (test 1013 mg/24HR 20-150 RESULTS CALLED TO WEST code=TCVN60F) G.READ BACK & CONFIRMED? YES.BY RALPH.Jerrica 05/30/18 7350.Units for 24 HR Urine Protein have changed: New Units=MG/24HR [id number] 21:24:00 Test Item Value Reference Range Comments CREATININE (test code=CREAT) 0.6 mg/dL 0.5-1.0 [id number] 21:24:00 Test Item Value Reference Range Comments SGOT/AST (test code=AST) 30 units/L 15-37 [id number] 21:24:00 Test Item Value Reference Range Comments SGPT/ALT (test code=ALT) 35 units/L 12-78 CBC W/AUTO [id number] 20:57:00 Test Item Value Reference Range Comments [...] REQUIRED (test code=PLTMR) NORMAL NORMAL CBC W/AUTO [id number] 06:31:00 Test Item Value Reference Range Comments [...] REQUIRED (test code=PLTMR) NORMAL NORMAL CHEMISTRY 7 [id number] 23:59:00 Test Item Value Reference Range Comments [...] (test code=CA) 8.6 mg/dL 8.4-10.2 CBC W/AUTO [id number] 23:57:00 Test Item Value Reference Range Comments [...] code=PLTMR) NORMAL NORMAL - US PREG UT [id number] 13:02:00 Patient Name: PAM EASTON Unit No: [id number] EXAMS: CPT CODE: [id number] US PREG UT TRANSVAGINAL [address] [facility] [address], [place] [address] LIMITED OBSTETRICAL ULTRASOUND REPORT --- Pat. Name: PAM EASTON Pat. No: [id number] Study Date: 11:33am , Age: 04 2000, 17 Pregnancies: 2, Para 0 LMP: 01/12/2018 GA by LMP: 16w5d GA by US: 15w5d GA Selected: 16w5d (LMP) ANIYA: 10/19/2018 Referring MD: Jaiden Arana Emblem Maker: Danielle Webb RDMS, RVT CPT4: USPRUTTRVG Admitting MD: Jaiden Arana Hist/Ind: SCAN 1 VAG. BLEEDING - MEASUREMENTS AGE GROWTH EVALUATION Measurement GA Range Srce %for GA Ratios ----- ---- --- ---- BPD 3.3 cm 15w6d (30z3c-02a2n) Hadl BPD 14% FL/ BPD 0.58 HC 12.0 cm 15w6d (64y8e-54s0f) Hadl HC 23% FL/AC 0.18 APD 3.3 cm APD HC/AC 1.16 (1.09 - 1.28) TAD 3.3 cm TAD CI 0.85 (0.70 - 0.86) AC 10.4 cm 16w0d (85g6n-91k4j) Hadl AC 32% FL 1.9 cm 15w3d (20q3x-32a1k) Hadl FL <05 HL 1.9 cm 15w4d ( 31q2v-65p8t) Leeroy HL 31% GA for sonogram 15w5d (92z1t-89i1f) Weight Estimate: based on (HL,HC,AC,FL) Avg Weight: [...] FU US motion and organs seen: SIMONE MCCORD [facility] NAME: PAM EASTON Radiology Department PHYS: RITAAL.01 - Jaiden Arana [address] : 2000 AGE: 17 SEX : F [place], [place] [address] LOC: AngelaERS PHONE #: [phone] EXAM DATE: 05/09/2018 STATUS: [facility] ER FAX #: [phone] NO: Page 1 Signed Report (CONTINUED) Patient Name: PAM EASTON Unit No: [id number] EXAMS: CPT CODE: [id number] [place] TRANSVAGINAL [address] <Continued> heart motion seen Placental location: Posterior [...] Arana MD Technologist: Danielle Webb RDMS, RVT; [facility] Probe: [id number] Trnscrbd D / (1302) t.SHARONG Orig Print D/T: S: (1547) [facility] [place] NAME: EASTONPAM Radiology Department PHYS: GUTAL.Otf - Jaiden Arana [address] : 2000 AGE: 17 SEX: F [place], [place] [address] LOC: DIANA PHONE #: [phone] EXAM DATE: 05/09/2018 STATUS: DEP ERFAX #: [phone] RAD NO: Page 2 Signed Report Patient Name: PAM EASTON Unit No: [id number] EXAMS: CPT CODE: [id number] US PREG UT TRANSVAGINAL [address] <Continued> [facility]ly [facility] [place] NAME: EASTONPAM Radiology Department PHYS: RITAANTONY. - Jaiden Arana [address] : 2000 AGE: 17 SEX: F [place], [place] [address] LOC: DIANA PHONE #: [phone] EXAM DATE: 05/09/2018 STATUS: DEP ER FAX #: [phone] RAD NO: Page 3 Signed Report- US FLW [id number] 13:02:00 Patient Name: PAM EASTON Unit No: [id number] EXAMS: [place]: [id number] [address] [facility] [address] [place], [place] [address] LIMITED OBSTETRICAL ULTRASOUND REPORT Pat. Name: PAM EASTON Pat. No: [id number] Study Date: 05/09/2018 11 :33am , Age: 04 2000, 17 Pregnancies: 2, Para 0 LMP: 01/12/2018 GA by LMP: 16w5d GA by US: 15w5d GA Selected: 16w5d ( LMP) ANIYA: 10/19/2018 Referring MD: JAIDEN ARANA Emblem Maker: Danielle Webb RDMS, RVT CPT4: USPREGLTD Admitting MD: JAIDEN ARANA Hist/Ind: SCAN 1 VAG. BLEEDING MEASUREMENTS AGE GROWTH EVALUATION Measurement GA Range Srce %for GA Ratios ----- ---- ------- BPD 3.3 cm 15w6d (09g0p-14q2o) Hadl BPD 14% FL/BPD 0.58 HC 12.0 cm 15w6d ( 15j1y-08y2l) Hadl HC 23% FL/AC 0.18 APD 3.3 cm APD HC/AC 1.16 (1.09 - 1.28) TAD 3.3 cm TAD CI 0.85 ( 0.70 - 0.86) AC 10.4 cm 16w0d (83k8y-68v0o) Hadl AC 32% FL 1.9 cm 15w3d ( 56c2k-50j9c) Hadl FL <05 HL 1.9 cm 15w4d (42i2l-57c3q) Leeroy HL 31% GA for sonogram 15w5d (86j8h-65u7z) Weight Estimate: based on (HL,HC,AC,FL ) Avg [...] and FU US motion and organs seen: [facility] NAME: EASTONPAM SHOOK Radiology Department PHYS: Jaiden De Leon [address] : 2000 AGE: 17 SEX: F [place], [place] [address] LOC: DIANA PHONE #: [phone] EXAM DATE: 05/09/2018 STATUS: REG ER FAX #: [phone] RAD NO: Page 1 Signed Report (CONTINUED) Patient Name: PAM EASTON Unit No: [id number] EXAMS: CPT CODE: [id number] [place] [address] <Continued> heart motion seen Placental location: Posterior [...] Harmony Probe: Trnscrbd D/T : 05/09/2018 (1302) GorgeNMG Orig Print D/T: S:2018 (1302) [facility]: GUTAL. - Arana,Jaiden [address] : 2000 AGE: 17 SEX: F [place] [address] LOC: AngelaERS PHONE #: EXAM DATE: 05/09/2018 STATUS: REG ER FAX #: [phone] RAD NO: Page 2 Signed Report Patient Name: PAM EASTON Unit No: [id number] EXAMS: CPT CODE : [id number] [place] [address] < Continued> [facility] NAME: PAM EASTON Radiology Department PHYS: GUTAL. - AranaAntonyJaiden [address] : 2000 AGE: 17 SEX: F [place] [address] LOC: AngelaERSPHONE #: EXAM DATE: 05/09/2018 STATUS: REG ER FAX #: [phone] RAD NO: Page 3 Signed ReportUA RFLX MICR CULT IF [id number] 11:42:00 Test Item Value Reference Range Comments [...] (test code=MUCU) RARE NONE SEEN CBC W/AUTO [id number] 11:38:00 Test Item Value Reference Range Comments [...]
--- OUTSIDE RECORDS SUMMARY | 2019-06-19 21:16 | XMS REPORT | Summary of Care ---
:2000 Author Organization [facility] [place] [address] Care Team Providers Name Role Phone Unavailable Primary Care Provider Unavailable Reason for Visit Reason Comments Disease Management Encounter Details Date Type Department Care Team Description 05/21/2019 [facility] Nephrology [address] [facility] Floor [address] Floor; [address] [place] [address] [place] [address] Allergies Active Allergy Reactions Severity Noted Date Comments Codeine Hives, Rash 03/31/2019 documented as of this encounter (statuses as of 05/21/2019) Medications Medication Sig Dispensed Refills Start End Date Status Date escitalopram (LEXAPRO) Take 10 mg by 0 Active 10 MG tablet mouth. 9 Cyanocobalamin (VITAMIN Take by 0 Active B 12 OR) mouth. Vitamin D, Take by 0 Active Ergocalciferol, 1.25 MG mouth every (91811 UT) CAPS Saturday. Cranberry (ELLURA) 200 Take by 0 Active MG CAPS mouth daily. hydrochlorothiazide 12.5 Take by 0 Active MG TABS mouth. mycophenolate (CELLCEPT) For the first 180 Tab 1 Active 500 MG tablet week take 0 500mg twice daily, Second week increase to 1000mg twice daily, Starting third week increase to 1500mg twice daily predniSONE (DELTASONE) Take 60mg 180 Tab 1 Active 10 MG tablet daily for two 0 weeks, then decrease to 50mg for two weeks, then decrease to 40mg daily sulfamethoxazole-trimeth Take 1 Tab by 90 Tab 2 07/23/19 Active oprim (BACTRIM) 400-80 mouth daily 0 20 MG per tablet for 90 days. hydroxychloroquine Take 200 mg 0 Active (PLAQUINIL) 200 MG by mouth tablet daily. lisinopril (PRINIVIL, Take 1 Tab by 90 Tab 3 Active ZESTRIL) 10 MG tablet mouth daily. 0 lisinopril (PRINIVIL, Take 1 Tab by 90 Tab 3 05/21/19 Discontinued ZESTRIL) 5 MG tablet mouth daily. 9 20 documented as of this encounter (statuses as of 05/21/2019) Active Problems Problem Noted Date Autoimmune disorder (HCCode) Preeclampsia BP (high blood pressure) Anxiety Hearing loss documented as of this encounter (statuses as of 05/21/2019) Social History Tobacco Use Types Packs/Day Years [...] Sign Reading Time Taken Comments Blood Pressure 130/75 05/21/2019 12:57 PM PARAPROFESSIONAL EDUCATION ASSISTANT Pulse 100 05/21/2019 12:57 PM PARAPROFESSIONAL EDUCATION ASSISTANT Temperature 37 C (98.6 F) 05/21/2019 12:57 PM PARAPROFESSIONAL EDUCATION ASSISTANT Respiratory Rate 16 05/21/2019 12:57 PM PARAPROFESSIONAL EDUCATION ASSISTANT Oxygen Saturation - - Inhaled Oxygen Concentration - - Weight 89.8 kg (198 lb) 05/21/2019 12:57 PM PARAPROFESSIONAL EDUCATION ASSISTANT Height 160 cm (5' 3") 05/21/2019 12:57 PM PARAPROFESSIONAL EDUCATION ASSISTANT Body Mass Index 35.07 05/21/2019 12:57 PM PARAPROFESSIONAL EDUCATION ASSISTANT documented in this encounter Patient Instructions Patient Diana Davey DO - 05/21/2019 1:00 PM PARAPROFESSIONAL EDUCATION ASSISTANT-reduce prednisone to 30mg on May 23, 2019. Continue this dose until you get your urine labs checked after your menstrual cycle. We will discuss further taper based on your results. PROFESSIONAL EDUCATION ASSISTANT documented in this encounter Progress Notes Diana Lr DO - 05/21/2019 1:00 PM CST Date: May 21, 2019 Patient Name: Oscar Gong Patient Date of : 2000 Chief Complaint: Chief Complaint Patient presents with Disease Management History: History of Present Illness: Oscar Gong is a 18 y.o. female with PMHX of PMHX of ?Autoimmune disease, hearing loss, preeclampsia vs HELLP during , history of miscarriage, who presents for follow up on Class V Lupus nephritis. Since her last, she started MMF and prednisone, both of which she is tolerating well. She does complain of a cough for the past week-non productive without any fevers. She visited the chief service dispatcher earlier in the day who ordered a CXR that is pending. Also got a RX of an antibiotic-she is unsure of the name. Also says she's had some lower back pain for which her chief service dispatcher got RX'd a muscle relaxant by chief service dispatcher. Labs reviewed with patient notable for leukocytosis last week-likely related to high dose steroids patient has been on. Denies any fever, chills, sob, lower extremity edema. Had one episode of emesis along with nausea on some days. Currently on her menstrual cycle. Current Medications: Current Outpatient Medications Medication Sig Dispense Refill Cranberry (ELLURA) 200 MG CAPS Take by mouth daily. Cyanocobalamin (VITAMIN B 12 OR) Take by mouth. escitalopram (LEXAPRO) 10 MG tablet Take 10 mg by mouth. hydrochlorothiazide 12.5 MG TABS Take by mouth. hydroxychloroquine (PLAQUINIL) 200 MG tablet Take 200 mg by mouth daily. lisinopril (PRINIVIL, ZESTRIL) 5 MG tablet Take 1 Tab by mouth daily. 90 Tab 3 mycophenolate (CELLCEPT) 500 MG tablet For the first week take 500mg twice daily, Second week increase to 1000mg twice daily, Starting third week increase to 1500mg twice daily 180 Tab 1 predniSONE (DELTASONE) 10 MG tablet Take 60mg daily for two weeks, then decrease to 50mg for twoweeks, then decrease to 40mg daily 180 Tab 1 sulfamethoxazole-trimethoprim (BACTRIM) 400-80 MG per tablet Take 1 Tab by mouth daily for 90 days. 90 Tab 2 Vitamin D, Ergocalciferol, 1.25 MG (31344 UT) CAPS Take by mouth every Saturday. No current facility-administered medications for this visit. Allergies: Allergies Allergen Reactions Codeine Hives and Rash Past Medical History: Past Medical History: Diagnosis Date Abnormal Pap smear of cervix Anemia Anxiety Autoimmune disorder (HCCode) BP (high blood pressure) DVT (deep venous thrombosis) (HCCode) Hearing loss Migraine Preeclampsia Past Surgical History: Past Surgical History: Procedure Laterality Date HX SECTION HX CHOLECYSTECTOMY HX KIDNEY SURGERY Social History: Social History Tobacco Use Smoking status: Never Smoker Smokeless tobacco: Never Used Substance Use Topics Alcohol use: Never Frequency: Never Family History: Family History Problem Relation Name Age of Onset Diabetes Father High Blood Pressure Father Stomach Cancer Maternal Grandfather Parkinsonism Maternal Grandmother Stomach Cancer Paternal Grandmother Review of Systems: A full 10-system review of systems was performed and was negative unless stated otherwise in the HPI. Examination: BP 130/75 (BP Location: right arm, Patient Position: Sitting, Cuff Size: regular ) | Pulse 100 | Temp 98.6 F (37 C) | Resp 16 | Ht 5' 3" (1.6 m) | Wt 198 lb (89.8 kg) | BMI 35.07 kg/m General appearance - alert, well appearing, [...] lesions noted Data: Laboratory Testing: Reviewed in [facility] Radiology Studies: Reviewed in [facility] Impression: Oscar Gong is a 18 y.o. female with Patient Active Problem List Diagnosis Autoimmune disorder (HCCode) Preeclampsia BP (high blood pressure) Anxiety Hearing loss Plan: KIDNEY, LEFT, ULTRASOUND-GUIDED NEEDLE BIOPSIES 04/10/2019 - MEMBRANOUS GLOMERULONEPHRITIS, CONSISTENT WITH LUPUS NEPHRITIS CLASS V - MINIMAL TO MILD INTERSTITIAL FIBROSIS AND TUBULAR ATROPHY (5% TO 10%) - MILD ARTERIAL INTIMAL FIBROSIS 1. LN Class V-biopsy proven. Discussed findings in depth with patient and mother and started on MMF and prednisone. MMF up titrated to 1500mg BID, which she is tolerating without any GI symptoms. Continue as tolerated for up to 6 months. Now down titrated to prednisone 40mg daily- she will go down to 30mg on May 23 and stay on this dose until she gets a urinalysis and UPC next week. If continues to besub-nephrotic, will recommend decreasing by 5mg every two weeks until patient is down to 10mg daily.Again, discussed risks and benefits of MMF with patient and discussed her need to be on dual control method given its teratogenic effect. Currently patient is sexually active and only using condoms. Has an upcoming appt with OB for additional control options. . Continue Bactrim SS for PJP ppx until patient is on lower dose of prednisone. Also recommend starting PPI daily. Risks and benefits were discussed in detail with patient and her mother today who are in agreement. Recheck labs in one month prior to next appt -recommend avoiding NSAIDs or any other nephrotoxic agents -renal u/s reviewed with normal size and no hydronephrosis present 2. HTN-in light of proteinuria and potential kidney disease, goal BP is <130/ 80. Inc lisinopril to 10mg daily and cont hctz. Monitor HR as on higher side of normal 2. Electrolytes: acceptable 3. Acid-base: acceptable 4. Volume: euvolemic on hctz 5. 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 Nutrition: low salt diet 8. Education: Pt was educated on risk of with lupus nephritis and immunosuppressive agents The plan was discussed with the patient who verbalized understanding. F/U in 5 weeks Thank you for referring this patient for consultation and allowing me to participate in her care. Please do not hesitate to call with any questions. Diana Lr DO Child Adolescent Psychiatrist Division of Nephrology [facility] Office number: [phone] signed by Diana Lr DO at 2019 2:02 PM CSTdocumented in this encounter Plan of Treatment Date Type Specialty Care Team Description 06/30/2019 Office Visit Nephrology Diana Lr DO [address] [facility] 8th [place] [address] [place] [address] Name Type Priority Associated Diagnoses Order Schedule URINALYSIS AUTO W/SCOPE Lab Routine Lupus nephritis, ISN/RPS Ordered: 05/21 class V (HCCode) Essential hypertension Other proteinuria RANDOM URINE Lab Routine Lupus nephritis, ISN/RPS Ordered: 05/21/2019 PROTEIN/CREATININE class V (HCCode) Essential hypertension Other proteinuria CBC W/AUTO DIFF WITH Lab Routine Lupus nephritis, ISN/RPS Expected: 2019, PLATELETS class V (HCCode) Expires: 11/19/2019 Essential hypertension Other proteinuria Autoimmune disorder (HCCode) COMPREHENSIVE METABOLIC Lab Routine Lupus nephritis, ISN/RPS Expected: , PANEL class V (HCCode) Expires: 11/19/2019 Essential hypertension Other proteinuria Autoimmune disorder (HCCode) HCG QUALITATIVE, SERUM Lab Routine Lupus nephritis, ISN/RPS Expected: , class V (HCCode) Expires: 11/19/2019 Essential hypertension Other proteinuria Autoimmune disorder (HCCode) C3 COMPLEMENT Lab Routine Lupus nephritis, ISN/RPS Expected: 06/20/2019, class V (HCCode) Expires: 11/19/2019 Essential hypertension Other proteinuria Autoimmune disorder (HCCode) C4 COMPLEMENT Lab Routine Lupus nephritis, ISN/RPS Expected: 06/20/2019, class V (HCCode) Expires: 11/19/2019 Essential hypertension Other proteinuria Autoimmune disorder (HCCode) URINALYSIS AUTO W/SCOPE Lab Routine Lupus nephritis, ISN/RPS Expected: , class V (HCCode) Expires: 11/19/2019 Essential hypertension Other proteinuria Autoimmune disorder (HCCode) RANDOM URINE Lab Routine Lupus nephritis, ISN/RPS Expected: 06/20/2019, PROTEIN/CREATININE class V (HCCode) Expires: 11/19/2019 Essential hypertension Other proteinuria Autoimmune disorder (HCCode) Health Maintenance Due Date Last Done Comments TETANUS SHOT (ADULT) 2013 BMI FOLLOW UP PLAN 2016 HIV SCREENING 2016 FLU VACCINE > 6 MONTHS Completed 02/25/2019 documented as of this encounter Results Not on filedocumented in this encounter Visit Diagnoses Diagnosis Lupus nephritis, ISN/RPS class V (HCCode) - Primary Essential hypertension Unspecified essential hypertension Other proteinuria Autoimmune disorder (HCCode) Autoimmune disease, not elsewhere classified documented in this encounter Insurance Payer Benefit Plan / Subscriber ID Effective Dates Phone Address Type Group [facility] PPO/EPO - BCBS xxxxxxxxxxxx 2019-Present [address] [place] [address] documented as of this encounter
--- OUTSIDE RECORDS SUMMARY | 2019-06-19 21:16 | XMS REPORT | Summary of Care ---
:2000 Author Organization [facility] - Health Address [address] [id number] Care Team Providers Name Role Phone Garry Ibarra MD Primary Care Provider Encounter Details Date Type Department Care Team Description 05/06/2019 Orders Only [facility] Doctor Unassigned, [address] [facility] [place] [address] [address] [place] [address] Allergies No Known Allergiesdocumented as of this encounter (statuses as of 05/06/2019) Medications Medication Sig Dispensed Refills Start Date End Date Status escitalopram oxalate Take 1 tablet 30 tablet 5 10/01/2018 Active (LEXAPRO) 10 mg by mouth tabletIndications: Anxiety daily. hydroCHLOROthiazide 12.5 Take 1 30 capsule 5 12/24/2018 Active mg capsuleIndications: capsule by Essential hypertension mouth daily. hydrocortisone 2.5 % Apply to 60 g 2 12/24/2018 Active creamIndications: Eczema, area(s) 2 unspecified type (two) times daily as needed for Rash. documented as of this encounter (statuses as of 05/06/2019) Active Problems Problem Noted Date Essential hypertension 11/03/2018 Anxiety 11/03/2018 documented as of this encounter (statuses as of 05/06/2019) Social History Tobacco Use Types Packs/Day Years Used Date Never Assessed Sex Assigned at Date Recorded Not on file Job Start Date Occupation Industry Not on file Not on file Not on file Travel History Travel Start Travel End No recent travel history available. documented as of this encounter Last Filed Vital Signs Not on filedocumented in this encounter Plan of Treatment Health [...] this topic documented as of this encounter Procedures Procedure Name Priority Date/Time Associated Diagnosis Comments EXTERNAL PROVIDER Routine 05/06/2019 12:01 AM TECHNOLOGY RESOURCE TEACHER RECORDS documented in this encounter Results Not on filedocumented in this encounter Insurance Payer Benefit Plan Subscriber ID Effective Dates Phone Address Type / Group [facility] [id number] 2011-Estelle [phone] [address] [place] [id number] [place] [address] documented as of this encounter
== END 2019-06-19 17:53 | disposition home or self-care (01) ==
LOC: ER 15:17
DX: R19.7 Diarrhea, unspecified (principal); I10 Essential (primary) hypertension; Z88.5 Allergy status to narcotic agent
CPT/HCPCS: 85025; 80048; 36415; 81025; 80076; 82272; 81003; 83690; 74177; 99284; Q9967; J7030

== ENCOUNTER 2021-03-06 11:11 | Emergency (ER) | payer BC, OTHER ==
--- OUTSIDE RECORDS SUMMARY | 2021-03-06 11:19 | XMS REPORT | Continuity of Care Document ---
:2000 Author Organization [facility] t Address [address] [place] [place] [address] Care Team Providers Name Role Phone FRED Primary Care Physician Unavailable Heidy BAR Attending Clinician Unavailable EDUAR Attending Clinician Unavailable Adeline DUARTE Attending Clinician ADELINE Attending Clinician Unavailable Chace Bower DO Attending Clinician FRED Attending Clinician Unavailable GEORGE BILLY Attending Clinician Unavailable Doctor Unassigned, Name Attending Clinician Unavailable Lydia BENITO Attending Clinician Unavailable Stewart KINGSLEY, S Attending Clinician Anjali REESE Attending Clinician Provider, Urgent Care Attending Clinician Unavailable Fred FISH Attending Clinician ANJALI Attending Clinician Unavailable Heidy Gold Attending Clinician Marlene Loredo Attending Clinician Unavailable Dorcas COLLIER Attending Clinician Unavailable ADELINE Attending Clinician Unavailable Kali FISH P Attending Clinician MAREK WRIGHT Attending Clinician Unavailable Physician, Primary Care Admitting Clinician Unavailable Dorcas COLLIER Admitting Clinician Unavailable ADELINE Admitting Clinician Unavailable Payers Payer Name Policy Type Policy Number Effective Date Expiration Date [employer] [id number] 2018 OUT OF STATE 00:00:00 OUT OF STATE [facility] [id number] - PPO - BS [id number] WOMEN'S [id number] 2020 HEALTH PROGRAM - 00:00:00 MEDICAID Problems Condition Condition Condition Status Onset Resolution Last Treating Co mments Source Name Details Category Date Date Treatment Clinician Date Essential Essential Disease Active Uni vers hypertensi hypertensi 7-15 it y of on on 00:00: [address] Anxiety Anxiety Disease Active Univers 7-15 ity of 00:00: [address] 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 [employer] [facility] BP (high BP (high Disease Active [facility] blood [place] pressure) pressure) of Medicin e Hearing Hearing Disease Active [facility] loss loss [employer] [facility] e Allergies, Adverse Reactions, Alerts Allergy Allergy Status Severity Reaction(s) Onset Inactive Treating Comm ents Source Name Type Date Date Clinician Codeine Propensi Active Rash 2018-04 [facility] ty to 2-10 [place] adverse 00:00: of reaction 00 Medicin s to e drug Acetamin Propensi Active Rash 2018-04 [facility] ophen-Co ty to 0-08 [place] deine adverse 00:00: of reaction 00 Medicin s to e drug No Known DA Active [facility] [place] 00:[facility]: [address] No Known DA Active U [facility] [place] 00:[facility]: [address] No Known DA Active U 0 [facility]ie 1-18 [facility] [address] [place] [address] NO KNOWN Drug Active Univers ALLERGIE Class ity of S [facility] Family History Family Member Diagnosis Comments Start Date Stop Date Source [facility] Social History Social Habit Start Date Stop Date Quantity Comments Source History [facility] Sunday ge of Alcohol Binge Medicine Exposure to Not sure [facility] Dieudonne e of SARS-CoV-2 Medicine (event) History [facility] ge of Alcohol Comment Medicine History [facility] ge of Alcohol Std Medicine Drinks Alcohol intake 2021-03-01 2021-03-01 Lifetime [facility] Col lege of 00:00:00 00:00:00 non-drinker Medicine (finding) Tobacco use and 2019-12-24 2019-12-24 Never used Universit y of exposure 00:00:00 00:00:00 [facility] History SDOH 2019-01-27 2019-01-27 1 Rob cox of Alcohol Frequency 00:00:00 00:00:00 Medicin e Sex Assigned At [birth year] Universit y of 00:00:00 00:00:00 [facility] Smoking Status Start Date Stop Date Source Never smoker [facility] Unknown if ever smoked [facility] Medications Ordered Filled Start Stop Current Ordering Indication Dosage Frequency Signature Comments Components Source Medication Medication Date Date Medication? Clinician (SIG) Name Name hydroxychlo 2020-04 200mg Take 200 [facility] roquine 1-10 11-10 mg by [place] (PLAQUINIL) 10:57: 00:00 mouth of 200 MG 32 :00 daily. Medicin tablet e cyclobenzap 2020-04 Yes 20mg Take 20 mg [facility] rine 1-10 by mouth [place] (FLEXERIL) 10:26: daily as of 10 MG 50 needed for Medicin tablet Muscle e spasms. Darfur-3 2020-04 Yes 1{tbl} Take 1 Tab [facility] Fatty Acids 1-10 by mouth [facility] (OMEGA-3 10:26: daily. of EPA FISH 50 Medicin OIL OR) e hydroxychlo 2020-04 Yes 200mg Take 1 [facility] roquine 1-10 Tablet by [place] (PLAQUINIL) 00:00: mouth two o f 200 MG 00 times Medicin tablet daily. e aspirin EC 2020-04 Yes 81mg Take 1 [facility] 81 MG TBEC 1-10 Tablet by [facility] 00:00: mouth of 00 daily. Medicin e hydroxychlo Yes 200mg Take 200 [facility] roquine 9-16 mg by [place] (PLAQUINIL) 13:20: mouth of 200 MG 55 daily. Medicin tablet e cyclobenzap Yes 20mg Take 20 mg Rob rine 9-16 by mouth [place] (FLEXERIL) 13:20: daily as of 10 MG 55 needed for Medicin tablet Muscle e spasms. hydroxychlo Yes 200mg Take 200 [facility] roquine 9-16 mg by [place] (PLAQUINIL) 13:20: mouth of 200 MG 55 daily. Medicin tablet e cyclobenzap Yes 20mg Take 20 mg [facility] rine 9-16 by mouth [place] (FLEXERIL) 13:20: daily as of 10 MG 55 needed for Medicin tablet Muscle e spasms. [place]fur-3 2020- Yes 1{tbl} Take 1 Tab [facility] Fatty Acids 9-16 by mouth [place] (OMEGA-3 13:20: daily. of EPA FISH 55 Medicin OIL OR) e [place]-3 0 Yes 1{tbl} Take 1 Tab [facility] Fatty Acids 9-16 by mouth [place] (OMEGA-3 13:20: daily. of EPA FISH 55 Medicin OIL OR) e mycophenola Yes For the [facility] 10-17 [facility] (CELLCEPT) 00:00: take 500mg o f 500 MG 00 twice Medicin tablet daily, e Second week increase to 1000mg twice daily, Starting third week increase to 1500mg twice daily mycophenola Yes For the [facility] 10-17 [facility] (CELLCEPT) 00:00: take 500mg o f 500 MG 00 twice Medicin tablet daily, e Second week increase to 1000mg twice daily, Starting third week increase to 1500mg twice daily mycophenola Yes For the [facility] 10-17 [facility] (CELLCEPT) 00:00: take 500mg o f 500 MG 00 twice Medicin tablet daily, e Second week increase to 1000mg twice daily, Starting third week increase to 1500mg twice daily hydroxychlo Yes 200mg Take 200 [facility] roquine 6-15 mg by [place] (PLAQUINIL) 08:58: mouth of 200 MG 59 daily. Medicin tablet e cyclobenzap Yes 20mg Take 20 mg [facility] rine 6-15 by mouth [place] (FLEXERIL) 08:58: daily as of 10 MG 59 needed for Medicin tablet Muscle e spasms. Dar[place]-3 Yes 1{tbl} Take 1 Tab [facility] Fatty Acids 6-15 by mouth [place] (OMEGA-3 08:58: daily. of EPA FISH 59 Medicin OIL OR) e cyclobenzap 2021-0 Yes 20mg Take 20 mg [facility] rine 3-11 by mouth [place] (FLEXERIL) 15:56: daily as of 10 MG 40 needed for Medicin tablet Muscle e spasms. hydroxychlo 0 Yes 200mg Take 200 [place] roquine 3-11 mg by [place] (PLAQUINIL) 15:42: mouth of 200 MG 13 daily. Medicin tablet e Dar[place]-3 0 Yes 1{tbl} Take 1 Tab [facility] Fatty Acids 3-11 by mouth [facility] eg (OMEGA-3 15:42: daily. of EPA FISH 13 Medicin OIL OR) e predniSONE 2020-0 Yes 5mg Take 1 [facility] (DELTASONE) 3-11 Tablet by Col lege 5 MG tablet 00:00: mouth of 00 daily. Medicin -take e 7.5mg (1 1/2 tab) daily for the next two weeks followed by 5mg (1 tab) daily. labetalol 0 Yes 100mg Take 1 [facility] (NORMODYNE) 3-11 Tablet by Col lege 100 MG 00:00: mouth two of tablet 00 times Medicin daily. e predniSONE 2020-0 Yes 5mg Take 1 [facility] (DELTASONE) 3-11 Tablet by Col lege 5 MG tablet 00:00: mouth of 00 daily. Medicin -take e 7.5mg (1 1/2 tab) daily for the next two weeks followed by 5mg (1 tab) daily. labetalol 2020-0 Yes 100mg Take 1 [facility] (NORMODYNE) 3-11 Tablet by Col lege 100 MG 00:00: mouth two of tablet 00 times Medicin daily. e predniSONE 2020-0 Yes 5mg Take 1 [facility] (DELTASONE) 3-11 Tablet by Col lege 5 MG tablet 00:00: mouth of 00 daily. Medicin -take e 7.5mg (1 1/2 tab) daily for the next two weeks followed by 5mg (1 tab) daily. labetalol 2020-0 Yes 100mg Take 1 [facility] (NORMODYNE) 3-11 Tablet by Col lege 100 MG 00:00: mouth two of tablet 00 times Medicin daily. e predniSONE 2020-0 Yes 5mg Take 1 [facility] (DELTASONE) 3-11 Tablet by Col lege 5 MG tablet 00:00: mouth of 00 daily. Medicin -take e 7.5mg (1 1/2 tab) daily for the next two weeks followed by 5mg (1 tab) daily. predniSONE 2020-0 Yes 5mg Take 1 [facility] (DELTASONE) 3-11 Tablet by Col lege 5 MG tablet 00:00: mouth of 00 daily. Medicin -take e 7.5mg (1 1/2 tab) daily for the next two weeks followed by 5mg (1 tab) daily. labetalol 202-0 Yes 100mg Take 1 [facility] (NORMODYNE) 3-11 Tablet by Col lege 100 MG 00:00: mouth two of tablet 00 times Medicin daily. e labetalol 2020-0 Yes 100mg Take 1 [facility] (NORMODYNE) 3-11 Tablet by Col lege 100 MG 00:00: mouth two of tablet 00 times Medicin daily. e azathioprin 2020-0 2020- No 175mg Take 3.5 [facility] e (IMURAN) 3-11 06-10 Tablets by Co llege 50 MG 00:00: 04:59 mouth of tablet 00 :00 daily for Medicin 90 days. e azathioprin 2020-0 2020- No 100mg Take 2 [facility] (IMURAN) 3-11 03-11 Tablets by Co llege 50 MG 00:00: 00:00 mouth of tablet 00 :00 daily. Medicin e lisinopril 2021-0 Yes 10mg Take 1 [facility] (PRINIVIL, 2-27 Tablet by [place] ZESTRIL) 10 00:00: mouth of MG tablet 00 daily. Medicin e lisinopril 2021-0 Yes 10mg Take 1 [facility] (PRINIVIL, 2-27 Tablet by [place] ZESTRIL) 10 00:00: mouth of MG tablet 00 daily. Medicin e lisinopril 2021-0 Yes 10mg Take 1 [facility] (PRINIVIL, 2-27 Tablet by [place] [facility] ZESTRIL) 10 00:00: mouth of MG tablet 00 daily. Medicin e lisinopril 2021-0 Yes 10mg Take 1 [facility] (PRINIVIL, 2-27 Tablet by [place] ZESTRIL) 10 00:00: mouth of MG tablet 00 daily. Medicin e lisinopril 2020-0 Yes 10mg Take 1 [facility] (PRINIVIL, 2-27 Tablet by [facility]oy DONG) 10 00:00: mouth of MG tablet 00 daily. Medicin e carvedilol 2020-0 Yes 6.25mg Take 2 [facility] (COREG) 9-22 Tabs by College 3.125 MG 00:00: mouth 2 of tablet 00 times Medicin daily e (with meals). carvedilol 2020-0 Yes 6.25mg Take 2 [facility] (COREG) 9-22 Tabs by College 3.125 MG 00:00: mouth 2 of tablet 00 times Medicin daily e (with meals). carvedilol 2020-0 Yes 6.25mg Take 2 [facility] (COREG) 9-22 Tabs by [place] 3.125 MG 00:00: mouth 2 of tablet 00 times Medicin daily e (with meals). carvedilol 2020-0 Yes 6.25mg Take 2 [facility] (COREG) 9-22 Tabs by [place] 3.125 MG 00:00: mouth 2 of tablet 00 times Medicin daily e (with meals). carvedilol 2020-0 Yes 6.25mg Take 2 [facility] (COREG) 9-22 Tabs by [place] 3.125 MG 00:00: mouth 2 of tablet 00 times Medicin daily e (with meals). trazodone 2020-0 Yes 50mg Take 50 mg [facility] (DESYREL) 903 by mouth Colleg e 50 MG 00:00: nightly. of tablet 00 Medicin e sertraline 2020-0 Yes 50mg Take 50 mg [facility] (ZOLOFT) 50 9-03 by mouth [place] MG tablet 00:00: daily. of 00 Medicin e trazodone 2020-0 Yes 50mg Take 50 mg [facility] (DESYREL) 9-03 by mouth Colleg e 50 MG 00:00: nightly. of tablet 00 Medicin e sertraline 2020-0 Yes 50mg Take 50 mg [facility] (ZOLOFT) 50 9-03 by mouth [place] MG tablet 00:00: daily. of 00 Medicin e trazodone 2020-0 Yes 50mg Take 50 mg [facility] (DESYREL) 9-03 by mouth Colleg e 50 MG 00:00: nightly. of tablet 00 Medicin e trazodone 2020-0 Yes 50mg Take 50 mg [facility] (DESYREL) 9-03 by mouth Colleg e 50 MG 00:00: nightly. of tablet 00 Medicin e sertraline 2020-0 Yes 50mg Take 50 mg [facility] (ZOLOFT) 50 9-03 by mouth [place] MG tablet 00:00: daily. of 00 Medicin e sertraline 2020-0 Yes 50mg Take 50 mg [facility] (ZOLOFT) 50 9-03 by mouth [place] MG tablet 00:00: daily. of 00 Medicin e trazodone 2020-0 Yes 50mg Take 50 mg [facility] (DESYREL) 9-03 by mouth Colleg e 50 MG 00:00: nightly. of tablet 00 Medicin e sertraline 2020-0 Yes 50mg Take 50 mg [facility] (ZOLOFT) 50 9-03 by mouth [place] MG tablet 00:00: daily. of 00 Medicin e SERTraline 2020-0 Yes [id number] 50mg Take 1 U nivers 50 mg 9-03 tablet by ity of tablet 00:00: mouth [place] 00 daily. Medical Branch traZODone 2020-0 Yes [id number] 50mg Take 1 U nivers 50 mg 9-03 tablet by ity of tablet 00:00: mouth at [place] 00 bedtime. Medical Branch SERTraline 2020-0 Yes [id number] 50mg Take 1 U nivers 50 mg 9-03 tablet by ity of tablet 00:00: mouth [place] 00 daily. Medical Branch traZODone 2020-0 Yes [id number] 50mg Take 1 U nivers 50 mg 9-03 tablet by ity of tablet 00:00: mouth at [place] 00 bedtime. Medical Branch SERTraline 2020-0 Yes [id number] 50mg Take 1 U nivers 50 mg 9-03 tablet by ity of tablet 00:00: mouth [place] 00 daily. Medical Branch traZODone 2020-0 Yes [id number] 50mg Take 1 U nivers 50 mg 9-03 tablet by ity of tablet 00:00: mouth at [place] 00 bedtime. Medical Branch SERTraline 2020-0 Yes [id number] 50mg Take 1 U nivers 50 mg 9-03 tablet by ity of tablet 00:00: mouth 00 daily. Medical Branch traZODone 2020-0 Yes [id number] 50mg Take 1 U nivers 50 mg 9-03 tablet by ity of tablet 00:00: mouth at [place] bedtime. Medical Branch SERTraline 2020-0 Yes [id number] 50mg Take 1 U nivers 50 mg 9-03 tablet by ity of tablet 00:00: mouth 00 daily. Medical Branch traZODone 2020-0 Yes [id number] 50mg Take 1 U nivers 50 mg 9-03 tablet by ity of tablet 00:00: mouth at [place] bedtime. Medical Branch SERTraline 2020-0 Yes [id number] 50mg Take 1 U nivers 50 mg 9-03 tablet by ity of tablet 00:00: mouth 00 daily. Medical Branch traZODone 2020-0 Yes [id number] 50mg Take 1 U nivers 50 mg 9-03 tablet by ity of tablet 00:00: mouth at [place] bedtime. Medical Branch Vitamin D, 2020-0 Yes 1{tbl} Take 1 Tab [facility] Ergocalcife 8-16 by mouth [place] rol, 1.25 00:00: every of [place] (Saturday. Medicin [place]) CAPS e Vitamin D, 2020-0 Yes 1{tbl} Take 1 Tab Rob Ergocalcife 8-16 by mouth [place] rol, 1.25 00:00: every of [place] (Saturday. Medicin [place]) CAPS e Vitamin D, 2020-0 Yes 1{tbl} Take 1 Tab Rob Ergocalcife 8-16 by mouth [place] rol, 1.25 00:00: every of MG (Saturday. Medicin [place]) CAPS e Vitamin D, 2020-0 Yes 1{tbl} Take 1 Tab Rob Ergocalcife 8-16 by mouth [place] rol, 1.25 00:00: every of MG (Saturday. Medicin [place]) CAPS e Vitamin D, 2020-0 Yes 1{tbl} Take 1 Tab [facility] Ergocalcife 8-16 by mouth [place] rol, 1.25 00:00: every of MG (Saturday. Medicin [place]) CAPS e sulfamethox 2020-0 Yes 1{tbl} Take 1 Un curry azole-trime 8-06 tablet by ity of thoprim 20:46: mouth. [place] 800-160 mg 47 Medical per tablet Branch sulfamethox 2020-0 Yes 1{tbl} Take 1 Un [place] azole-trime 8-06 tablet by ity of thoprim 20:46: mouth. [place] 800-160 mg 47 Medical per tablet Branch sulfamethox 2020-0 Yes 1{tbl} Take 1 Un [place] azole-trime 8-06 tablet by ity of thoprim 20:46: mouth. [place] 800-160 mg 47 Medical per tablet Branch sulfamethox 2020-0 Yes 1{tbl} Take 1 Un [place] azole-trime 8-06 tablet by ity of thoprim 20:46: mouth. [place] 800-160 mg 47 Medical per tablet Branch sulfamethox 2020-0 Yes 1{tbl} Take 1 Un [place] azole-trime 8-06 tablet by ity of thoprim 20:46: mouth. [place] 800-160 mg 47 Medical per tablet Branch sulfamethox 2020-0 Yes 1{tbl} Take 1 Un [place] azole-trime 8-06 tablet by ity of thoprim 20:46: mouth. [place] 800-160 mg 47 Medical per tablet Branch sulfamethox 2020-0 Yes 1{tbl} Take 1 Un [place] azole-trime 8-06 tablet by ity of thoprim 20:46: mouth. [place] 800-160 mg 47 Medical per tablet Branch sulfamethox 2020-0 Yes 1{tbl} Take 1 Un [place] azole-trime 8-06 tablet by ity of thoprim 20:46: mouth. [place] 800-160 mg 47 Medical per tablet Branch sulfamethox 2020-0 Yes 1{tbl} Take 1 Un [place] azole-trime 8-06 tablet by ity of thoprim 20:46: mouth. [place] 800-160 mg 47 Medical per tablet Branch sulfamethox 2020-0 Yes 1{tbl} Take 1 Un [place] azole-trime 8-06 tablet by ity of thoprim 20:46: mouth. [place] 800-160 mg 47 Medical per tablet Branch sulfamethox 2020-0 Yes 1{tbl} Take 1 Un [place] azole-trime 8-06 tablet by ity of thoprim 20:46: mouth. [place] 800-160 mg 47 Medical per tablet Branch sulfamethox 2020-0 Yes 1{tbl} Take 1 Un [place] azole-trime 8-06 tablet by ity of thoprim 20:46: mouth. [place] 800-160 mg 47 Medical per tablet Branch sulfamethox 2020-0 Yes 1{tbl} Take 1 Un [place] azole-trime 8-06 tablet by ity of thoprim 20:46: mouth. [place] 800-160 mg 47 Medical per tablet Branch DULoxetine 2020-0 Yes [id number] 60mg Take 1 Univers 60 mg 8-06 capsule by ity of capsule 00:00: mouth [place] 00 daily. Medical Branch DULoxetine 2020-0 Yes [id number] 60mg Take 1 Univers 60 mg 8-06 capsule by ity of capsule 00:00: mouth [place] 00 daily. Medical Branch DULoxetine 2020-0 Yes [id number] 60mg Take 1 Univers 60 mg 8-06 capsule by ity of capsule 00:00: mouth [place] 00 daily. Medical Branch DULoxetine 2020-0 Yes [id number] 60mg Take 1 Univers 60 mg 8-06 capsule by ity of capsule 00:00: mouth [place] 00 daily. Medical Branch DULoxetine 2020-0 Yes [id number] 60mg Take 1 Univers 60 mg 8-06 capsule by ity of capsule 00:00: mouth [place] 00 daily. Medical Branch DULoxetine 2020-0 Yes [id number] 60mg Take 1 Univers 60 mg 8-06 capsule by ity of capsule 00:00: mouth [place] 00 daily. Medical Branch DULoxetine 2020-0 Yes [id number] 60mg Take 1 Univers 60 mg 8-06 capsule by ity of capsule 00:00: mouth [place] 00 daily. Medical Branch hydrochloro 2020-0 Yes [id number] 25mg Take 1 Tab [facility] thiazide 7-14 by mouth [place] (HYDRODIURI 00:00: daily. of L) 25 MG 00 Medicin tablet e hydrochloro 2020-0 Yes [id number] 25mg Take 1 Tab Rob thiazide 7-14 by mouth [place] (HYDRODIURI 00:00: daily. of L) 25 MG 00 Medicin tablet e hydrochloro 2020-0 Yes [id number] 25mg Take 1 Tab [facility] thiazide 7-14 by mouth College (HYDRODIURI 00:00: daily. of L) 25 MG 00 Medicin tablet e hydrochloro 2020-0 Yes [id number] 25mg Take 1 Tab [facility] thiazide 7-14 by mouth College (HYDRODIURI 00:00: daily. of L) 25 MG 00 Medicin tablet e hydrochloro 2020-0 Yes [id number] 25mg Take 1 Tab Rob thiazide 7-14 by mouth [place] (HYDRODIURI 00:00: daily. of L) 25 MG 00 Medicin tablet e mycophenola 2020-0 Yes For the [facility] te 3- first week College (CELLCEPT) 00:00: take 500mg o f 500 MG 00 twice Medicin tablet daily, e Second week increase to 1000mg twice daily, Starting third week increase to 1500mg twice daily mycophenola 2020-0 Yes For the [facility] 3- [facility] (CELLCEPT) 00:00: take 500mg o f 500 MG 00 twice Medicin tablet daily, e Second week increase to 1000mg twice daily, Starting third week increase to 1500mg twice daily Cyanocobala 2020-0 Yes Take by Gurpreet matta min 3-10 mouth. [place] (VITAMIN B 13:58: of 12 OR) 07 Medicin e Vitamin D, 2020-0 Yes Take by [facility] Ergocalcife 3-10 mouth [place] rol, 1.25 13:58: every of [place] (Saturday. Medicin [place]) CAPS e Cranberry 2020-0 Yes Take by [facility] (ELLURA) 3-10 mouth [place] 200 MG CAPS 13:58: daily. of 07 Medicin e hydrochloro 2020-0 Yes Take [facility] 13:58: of TABS 07 Medicin e hydroxychlo 2020-0 Yes 200mg Take 200 [facility] roquine 3-10 mg by [place] (PLAQUINIL) 13:58: mouth of 200 MG 07 daily. Medicin tablet e hydroxychlo 2020-0 Yes 200mg Take 200 U nivers roquine 200 3-06 mg by ity of mg tablet 20:50: mouth. [address] hydroxychlo 2020-0 Yes 200mg Take 200 U nivers roquine 200 3-06 mg by ity of mg tablet 20:50: mouth. [address] hydroxychlo 2020-0 Yes 200mg Take 200 U nivers roquine 200 3-06 mg by ity of mg tablet 20:50: mouth. [place] [address] Medical Branch hydroxychlo 2020-0 Yes 200mg Take 200 U nivers roquine 200 3-06 mg by ity of mg tablet 20:50: mouth. [place] [address] Medical Branch hydroxychlo 2020-0 Yes 200mg Take 200 U nivers roquine 200 3-06 mg by ity of mg tablet 20:50: mouth. [place] [address] Medical Branch hydroxychlo 2020-0 Yes 200mg Take 200 U nivers roquine 200 3-06 mg by ity of mg tablet 20:50: mouth. [place] [address] Medical Branch hydroxychlo 2020-0 Yes 200mg Take 200 U nivers roquine 200 3-06 mg by ity of mg tablet 20:50: mouth. [place] [address] Medical Branch hydroxychlo 2020-0 Yes 200mg Take 200 U nivers roquine 200 3-06 mg by ity of mg tablet 20:50: mouth. [place] [address] Medical Branch hydroxychlo 2020-0 Yes 200mg Take 200 U nivers roquine 200 3-06 mg by ity of mg tablet 20:50: mouth. [place] [address] Medical Branch hydroxychlo 2020-0 Yes 200mg Take 200 U nivers roquine 200 3-06 mg by ity of mg tablet 20:50: mouth. [place] [address] Medical Branch hydroxychlo 2020-0 Yes 200mg Take 200 U nivers roquine 200 3-06 mg by ity of mg tablet 20:50: mouth. [place] [address] Medical Branch hydroxychlo 2020-0 Yes 200mg Take 200 U nivers roquine 200 3-06 mg by ity of mg tablet 20:50: mouth. [place] [address] Medical Branch hydroxychlo 2020-0 Yes 200mg Take 200 U nivers roquine 200 3-06 mg by ity of mg tablet 20:50: mouth. [place] [address] Medical Branch sulfamethox 2020-0 Yes 1{tbl} Take 1 Un curry azole-trime 3-06 tablet by ity of thoprim 20:50: mouth. [place] 800-160 [facility] Medical [facility] tablet Branch hydroxychlo 2020-0 Yes 200mg Take 200 U nivers roquine 200 3-06 mg by ity of mg tablet 20:50: mouth. [place] [address] Medical Branch sulfamethox 2020-0 Yes 1{tbl} Take 1 Un [facility] azole-trime 3-06 tablet by ity of thoprim 20:50: mouth. [place] 800-160 mg 51 Medical per tablet Branch hydroxychlo 2020-0 Yes 200mg Take 200 U nivers roquine 200 3-06 mg by ity of mg tablet 20:50: mouth. [place] 51 Medical Branch HYDROCHLORO 2020-0 Yes [id number] 12.5mg TAKE 1 Univers THIAZIDE 3-06 CAPSULE BY ity o f 12.5 mg 00:00: MOUTH [place] capsule 00 DAILY Medical Branch HYDROCHLORO 2020-0 Yes [id number] 12.5mg TAKE 1 Univers THIAZIDE 3-06 CAPSULE BY ity o f 12.5 mg 00:00: MOUTH [place] capsule 00 DAILY Medical Branch HYDROCHLORO 2020-0 Yes [id number] 12.5mg TAKE 1 Univers THIAZIDE 3-06 CAPSULE BY ity o f 12.5 mg 00:00: MOUTH [place] capsule 00 DAILY Medical Branch HYDROCHLORO 2020-0 Yes [id number] 12.5mg TAKE 1 Univers THIAZIDE 3-06 CAPSULE BY ity o f 12.5 mg 00:00: MOUTH [place] capsule 00 DAILY Medical Branch HYDROCHLORO 2020-0 Yes [id number] 12.5mg TAKE 1 Univers THIAZIDE 3-06 CAPSULE BY ity o f 12.5 mg 00:00: MOUTH [place] capsule 00 DAILY Medical Branch HYDROCHLORO 2020-0 Yes [id number] 12.5mg TAKE 1 Univers THIAZIDE 3-06 CAPSULE BY ity o f 12.5 mg 00:00: MOUTH [place] capsule 00 DAILY Medical Branch HYDROCHLORO 2020-0 Yes [id number] 12.5mg TAKE 1 Univers THIAZIDE 3-06 CAPSULE BY ity o f 12.5 mg 00:00: MOUTH [place] capsule 00 DAILY Medical Branch HYDROCHLORO 2020-0 Yes [id number] 12.5mg TAKE 1 Univers THIAZIDE 3-06 CAPSULE BY ity o f 12.5 mg 00:00: MOUTH [place] capsule 00 DAILY Medical Branch HYDROCHLORO 2020-0 Yes [id number] 12.5mg TAKE 1 Univers THIAZIDE 3-06 CAPSULE BY ity o f 12.5 mg 00:00: MOUTH [place] capsule 00 DAILY Medical Branch HYDROCHLORO 2020-0 Yes [id number] 12.5mg TAKE 1 Univers THIAZIDE 3-06 CAPSULE BY ity o f 12.5 mg 00:00: MOUTH [place] capsule 00 DAILY Medical Branch HYDROCHLORO 2020-0 Yes [id number] 12.5mg TAKE 1 Univers THIAZIDE 3-06 CAPSULE BY ity o f 12.5 mg 00:00: MOUTH [place] capsule 00 DAILY Medical Branch HYDROCHLORO 2020-0 Yes [id number] 12.5mg TAKE 1 Univers THIAZIDE 3-06 CAPSULE BY ity o f 12.5 mg 00:00: MOUTH [place] capsule 00 DAILY Medical Branch HYDROCHLORO 2020-0 Yes [id number] 12.5mg TAKE 1 Univers THIAZIDE 3-06 CAPSULE BY ity o f 12.5 mg 00:00: MOUTH [place] capsule 00 DAILY Medical Branch HYDROCHLORO 2020-0 Yes [id number] 12.5mg TAKE 1 Univers THIAZIDE 3-06 CAPSULE BY ity o f 12.5 mg 00:00: MOUTH [place] capsule 00 DAILY Medical Branch HYDROCHLORO 2020-0 Yes [id number] 12.5mg TAKE 1 Univers THIAZIDE 3-06 CAPSULE BY ity o f 12.5 mg 00:00: MOUTH [place] capsule 00 DAILY Medical Branch HYDROCHLORO 2020-0 Yes [id number] 12.5mg TAKE 1 [facility] THIAZIDE 3-06 CAPSULE BY ity o f 12.5 mg 00:00: MOUTH [place] capsule 00 DAILY Medical Branch benzonatate 2020-0 2020- No [id number] 100mg Take 1 Univers (TESSALON 3-06 -17 capsule by Roxanne) 100 00:00: 04:59 mouth 3 [place] mg capsule 00 :00 (three) Medica l times Branch daily for 10 days. benzonatate 2019-0 2020- No [id number] 100mg Take 1 [facility] (TESSALON 3-06 -17 capsule by Roxanne) 100 00:00: 04:59 mouth 3 [place] mg capsule 00 :00 (three) Medica l times Branch daily for 10 days. oseltamivir 2019-0 2020- No 75mg Take 75 mg Rob (TAMIFLU) 06-25-12 by mouth. [place] 75 MG 00:00: 04:59 of capsule 00 :00 Medicin e oseltamivir 2019-0 2020- No [id number] 75mg Take 1 Univers (TAMIFLU) 06-25-12 capsule by ity of 75 mg 00:00: 04:59 mouth 2 [place] capsule 00 :00 (two) Medical times Branch daily for 5 days. oseltamivir 2019-0 2020- No [id number] 75mg Take 1 Univers (TAMIFLU) 3-09 22-12 capsule by ity of 75 mg 00:00: 04:59 mouth 2 [place] capsule 00 :00 (two) Medical times Branch daily for 5 days. carvediloL 2020-0 Yes 6.25mg Take 6.25 Univers 6.25 mg 2-21 mg by ity of tablet 00:00: mouth. [place] [facility] carvediloL 2020-0 Yes 6.25mg Take 6.25 Univers 6.25 mg 2-21 mg by ity of tablet 00:00: mouth. [place] [facility] carvediloL 2020-0 Yes 6.25mg Take 6.25 Univers 6.25 mg 2-21 mg by ity of tablet 00:00: mouth. [place] [facility] carvediloL 2020-0 Yes 6.25mg Take 6.25 Univers 6.25 mg 2-21 mg by ity of tablet 00:00: mouth. [place] [facility] carvediloL 2020-0 Yes 6.25mg Take 6.25 Univers 6.25 mg 2-21 mg by ity of tablet 00:00: mouth. [place] [facility] carvediloL 2020-0 Yes 6.25mg Take 6.25 Univers 6.25 mg 2-21 mg by ity of tablet 00:00: mouth. [place] [facility] carvediloL 2020-0 Yes 6.25mg Take 6.25 Univers 6.25 mg 2-21 mg by ity of tablet 00:00: mouth. [place] [facility] carvediloL 2020-0 Yes 6.25mg Take 6.25 Univers 6.25 mg 2-21 mg by ity of tablet 00:00: mouth. [place] [facility] carvediloL 2020-0 Yes 6.25mg Take 6.25 Univers 6.25 mg 2-21 mg by ity of tablet 00:00: mouth. [place] [facility] carvediloL 2020-0 Yes 6.25mg Take 6.25 Univers 6.25 mg 2-21 mg by ity of tablet 00:00: mouth. [place] [address] Medical Branch carvediloL 2020-0 Yes 6.25mg Take 6.25 Univers 6.25 mg 2-21 mg by ity of tablet 00:00: mouth. [place] [address] Medical Branch carvediloL 2020-0 Yes 6.25mg Take 6.25 Univers 6.25 mg 2-21 mg by ity of tablet 00:00: mouth. [place] [facility] Branch carvediloL 2020-0 Yes 6.25mg Take 6.25 Univers 6.25 mg 2-21 mg by ity of tablet 00:00: mouth. [address] carvediloL 2020-0 Yes 6.25mg Take 6.25 Univers 6.25 mg 2-21 mg by ity of tablet 00:00: mouth. [address] carvediloL 2020-0 Yes 6.25mg Take 6.25 Univers 6.25 mg 2-21 mg by ity of tablet 00:00: mouth. [address] Branch carvedilol 2020-0 Yes 3.125mg Take 1 Tab [facility] (COREG) 2-13 by mouth 2 Colleg e 3.125 MG 00:00: times of tablet 00 daily Medicin (with e meals). hydroxychlo 2020-0 Yes 200mg Take 200 [facility] roquine 1-30 mg by [place] (PLAQUINIL) 18:55: mouth of 200 MG 23 daily. Medicin tablet e Cyanocobala 2020-0 Yes Take by Gurpreet matta min 1-30 mouth. [place] (VITAMIN B 18:53: of 12 OR) 37 Medicin e Vitamin D, 2020-0 Yes Take by [facility] Ergocalcife 1-30 mouth [place] rol, 1.25 18:53: every of MG ([id number] 37 Saturday. Medicin [place]) CAPS e Cranberry 2020-0 Yes Take by [place] or (ELLURA) 1-30 mouth [place] 200 MG CAPS 18:53: daily. of 37 Medicin e hydrochloro 2020-0 Yes Take by Gurpreet matta thiazide 1-30 mouth. [place] 12.5 MG 18:53: of TABS 37 Medicin e lisinopril 2020-0 Yes 10mg Take 1 Tab [facility] (PRINIVIL, 1-30 by mouth Colle ge ZESTRIL) 10 00:00: daily. of MG tablet 00 Medicin e lisinopril 2020-0 Yes 10mg Take 1 Tab [place] (PRINIVIL, 1-30 by mouth Colle ge ZESTRIL) 10 00:00: daily. of MG tablet 00 Medicin e lisinopril 2020-0 Yes 10mg Take 10 mg U nivers 10 mg 1-30 by mouth. ity of tablet 00:00: [place] [facility] lisinopril 2020-0 Yes 10mg Take 10 mg U nivers 10 mg 1-30 by mouth. ity of tablet 00:00: [place] [facility] lisinopril 2020-0 Yes 10mg Take 10 mg U nivers 10 mg 1-30 by mouth. ity of tablet 00:00: [place] [facility] lisinopril 2020-0 Yes 10mg Take 10 mg U nivers 10 mg 1-30 by mouth. ity of tablet 00:00: [place] [facility] lisinopril 2020-0 Yes 10mg Take 10 mg U nivers 10 mg 1-30 by mouth. ity of tablet 00:00: [place] [facility] lisinopril 2020-0 Yes 10mg Take 10 mg U nivers 10 mg 1-30 by mouth. ity of tablet 00:00: [place] [facility] lisinopril 2020-0 Yes 10mg Take 10 mg U nivers 10 mg 1-30 by mouth. ity of tablet 00:00: [place] [facility] lisinopril 2020-0 Yes 10mg Take 10 mg U nivers 10 mg 1-30 by mouth. ity of tablet 00:00: [place] [facility] lisinopril 2020-0 Yes 10mg Take 10 mg U nivers 10 mg 1-30 by mouth. ity of tablet 00:00: [place] [facility] lisinopril 2020-0 Yes 10mg Take 10 mg U nivers 10 mg 1-30 by mouth. ity of tablet 00:00: [place] [facility] lisinopril 2020-0 Yes 10mg Take 10 mg U nivers 10 mg 1-30 by mouth. ity of tablet 00:00: [place] [facility] lisinopril 2020-0 Yes 10mg Take 10 mg U nivers 10 mg 1-30 by mouth. ity of tablet 00:00: [place] [facility] lisinopril 2020-0 Yes 10mg Take 10 mg U nivers 10 mg 1-30 by mouth. ity of tablet 00:00: [place] [facility] lisinopril 2020-0 Yes 10mg Take 10 mg U nivers 10 mg 1-30 by mouth. ity of tablet 00:00: [place] [facility] lisinopril 2020-0 Yes 10mg Take 10 mg U nivers 10 mg 1-30 by mouth. ity of tablet 00:00: [place] [facility] sulfamethox 2020-0 2020- No 1{tbl} Take 1 Tab [facility] azole-trime -06 23-03 by mouth Col lege thoprim 00:00: 04:59 daily for of (BACTRIM) 00 :00 90 days. Medici n 400-80 MG e per tablet sulfamethox 2020-0 2020- No 1{tbl} Take 1 Tab [facility] azole-trime -06 23-03 by mouth Col lege thoprim 00:00: 04:59 daily for of (BACTRIM) 00 :00 90 days. Medici n 400-80 MG e per tablet mycophenola 2020-0 Yes For the [facility] te - first week College (CELLCEPT) 00:00: take 500mg o f 500 MG 00 twice Medicin tablet daily, e Second week increase to 1000mg twice daily, Starting third week increase to 1500mg twice daily predniSONE 2020-0 Yes Take 60mg [facility] (DELTASONE) 1-02 daily for Col lege 10 MG 00:00: two weeks, of tablet 00 then Medicin decrease e to 50mg for two weeks, then decrease to 40mg daily mycophenola 2020-0 Yes For the [facility] te 04-23 first week [place] (CELLCEPT) 00:00: take 500mg o f 500 MG 00 twice Medicin tablet daily, e Second week increase to 1000mg twice daily, Starting third week increase to 1500mg twice daily predniSONE 2020-0 Yes Take 60mg [facility] (DELTASONE) 1-02 daily for Col lege 10 MG 00:00: two weeks, of tablet 00 then Medicin decrease e to 50mg for two weeks, then decrease to 40mg daily mycophenola 2020-0 Yes 500mg Take 500 U nivers te mofetil 1-02 mg by ity of 500 mg 00:00: mouth. [place] tablet [facility] mycophenola 2020-0 Yes 500mg Take 500 U nivers te mofetil 1-02 mg by ity of 500 mg 00:00: mouth. [place] tablet [facility] mycophenola 2020-0 Yes 500mg Take 500 U nivers te mofetil 1-02 mg by ity of 500 mg 00:00: mouth. [place] tablet [facility] mycophenola 2020-0 Yes 500mg Take 500 U nivers te mofetil 1-02 mg by ity of 500 mg 00:00: mouth. [place] tablet 00 Medical Branch mycophenola 2020-0 Yes 500mg Take 500 U nivers te mofetil 1-02 mg by ity of 500 mg 00:00: mouth. [place] tablet 00 Medical Branch mycophenola 2020-0 Yes 500mg Take 500 U nivers te mofetil 1-02 mg by ity of 500 mg 00:00: mouth. [place] tablet 00 Medical Branch mycophenola 2020-0 Yes 500mg Take 500 U nivers te mofetil 1-02 mg by ity of 500 mg 00:00: mouth. [place] tablet 00 [facility] Branch mycophenola 2020-0 Yes 500mg Take 500 U nivers te mofetil 1-02 mg by ity of 500 mg 00:00: mouth. [place] tablet 00 [facility] Branch mycophenola 2020-0 Yes 500mg Take 500 U nivers te mofetil 1-02 mg by ity of 500 mg 00:00: mouth. [place] tablet 00 [facility] Branch mycophenola 2020-0 Yes 500mg Take 500 U nivers te mofetil 1-02 mg by ity of 500 mg 00:00: mouth. [place] tablet 00 Medical Branch mycophenola 2020-0 Yes 500mg Take 500 U nivers te mofetil 1-02 mg by ity of 500 mg 00:00: mouth. [place] tablet 00 [facility] Branch mycophenola 2020-0 Yes 500mg Take 500 U nivers te mofetil 1-02 mg by ity of 500 mg 00:00: mouth. [place] tablet 00 [facility] Branch mycophenola 2020-0 Yes 500mg Take 500 U nivers te mofetil 1-02 mg by ity of 500 mg 00:00: mouth. [place] tablet 00 [facility] Branch mycophenola 2020-0 Yes 500mg Take 500 U nivers te mofetil 1-02 mg by ity of 500 mg 00:00: mouth. [place] tablet 00 [facility] Branch mycophenola 2020-0 Yes 500mg Take 500 U nivers te mofetil 1-02 mg by ity of 500 mg 00:00: mouth. [place] tablet 00 [facility] [place] predniSONE 2020-0 2021- No Take 60mg [facility] (DELTASONE) - 03-11 daily for Co llege 10 MG 00:00: 00:00 two weeks, of tablet 00 :00 then Medicin decrease e to 50mg for two weeks, then decrease to 40mg daily lisinopril 2018-04 2020- No 5mg Take 1 Tab Rob (PRINIVIL, 2-10 -30 by mouth [place] ZESTRIL) 5 00:00: 00:00 daily. of MG tablet 00 :00 Medicin e Cholecalcif 2018-04 Yes Take by [facility] kaya 1-05 mouth. [place] (VITAMIN D 21:03: of OR) 14 Medicin e Cyanocobala 2018-04 Yes Take by [facility] min 1-05 mouth. [place] (VITAMIN B 21:03: of 12 OR) 14 Medicin e Cholecalcif 2018-04 Yes Take by [facility] kaya 0-08 mouth. [place] (VITAMIN D 17:09: of OR) 02 Medicin e Cyanocobala 2018-04 Yes Take by [facility] min 0-08 mouth. [place] (VITAMIN B 17:09: of 12 OR) 02 Medicin e hydrocortis Yes [id number] Apply to [facility] one 2.5 % 9-04 area(s) 2 ity o f cream 00:00: (two) [place] 00 times Medical daily as Branch needed for Rash. hydrocortis Yes [id number] Apply to Univers one 2.5 % 9-04 area(s) 2 ity o f cream 00:00: (two) [place] 00 times Medical daily as Branch needed for Rash. hydrocortis Yes [id number] Apply to Univers one 2.5 % 9-04 area(s) 2 ity o f cream 00:00: (two) [place] 00 times Medical daily as Branch needed for Rash. hydrocortis Yes [id number] Apply to Univers one 2.5 % 9-04 area(s) 2 ity o f cream 00:00: (two) [place] 00 times Medical daily as Branch needed for Rash. hydroCHLORO 2018- Yes [id number] 12.5mg Take 1 Univers thiazide 9-04 capsule by ity o f 12.5 mg 00:00: mouth [place] capsule 00 daily. Medical Branch hydrocortis Yes [id number] Apply to Univers one 2.5 % 9-04 area(s) 2 ity o f cream 00:00: (two) [place] 00 times Medical daily as Branch needed for Rash. hydrocortis 2018- Yes [id number] Apply to Univers one 2.5 % 9-04 area(s) 2 ity o f cream 00:00: (two) [place] 00 times Medical daily as Branch needed for Rash. hydrocortis 0 Yes [id number] Apply to Univers one 2.5 % 9-04 area(s) 2 ity o f cream 00:00: (two) [place] 00 times Medical daily as Branch needed for Rash. hydrocortis 0 Yes [id number] Apply to Univers one 2.5 % 9-04 area(s) 2 ity o f cream 00:00: (two) [place] 00 times Medical daily as Branch needed for Rash. hydrocortis 0 Yes [id number] Apply to Univers one 2.5 % 9-04 area(s) 2 ity o f cream 00:00: (two) [place] 00 times Medical daily as Branch needed for Rash. hydroCHLORO Yes [id number] 12.5mg Take 1 [facility] thiazide 9-04 capsule by ity o f 12.5 mg 00:00: mouth [place] capsule 00 daily. Medical Branch hydrocortis Yes [id number] Apply to Univers one 2.5 % 9-04 area(s) 2 ity o f cream 00:00: (two) [place] 00 times Medical daily as Branch needed for Rash. hydrocortis Yes [id number] Apply to Univers one 2.5 % 9-04 area(s) 2 ity o f cream 00:00: (two) [place] 00 times Medical daily as Branch needed for Rash. hydrocortis 0 Yes [id number] Apply to Univers one 2.5 % 9-04 area(s) 2 ity o f cream 00:00: (two) [place] 00 times Medical daily as Branch needed for Rash. hydrocortis 0 Yes [id number] Apply to Univers one 2.5 % 9-04 area(s) 2 ity o f cream 00:00: (two) [place] 00 times Medical daily as Branch needed for Rash. hydrocortis 0 Yes [id number] Apply to Univers one 2.5 % 9-04 area(s) 2 ity o f cream 00:00: (two) [place] 00 times Medical daily as Branch needed for Rash. hydroCHLORO 2019-0 Yes [id number] 12.5mg Take 1 [facility] thiazide 9-04 capsule by ity o f 12.5 mg 00:00: mouth [place] capsule 00 daily. Medical Branch hydrocortis Yes [id number] Apply to Univers one 2.5 % 9-04 area(s) 2 ity o f cream 00:00: (two) [place] 00 times Medical daily as Branch needed for Rash. hydroCHLORO Yes [id number] 12.5mg Take 1 [facility] thiazide 9-04 capsule by ity o f 12.5 mg 00:00: mouth [place] capsule 00 daily. Medical Branch hydrocortis Yes [id number] Apply to Univers one 2.5 % 9-04 area(s) 2 ity o f cream 00:00: (two) [place] 00 times Medical daily as Branch needed for Rash. hydrocortis Yes [id number] Apply to Univers one 2.5 % 9-04 area(s) 2 ity o f cream 00:00: (two) [place] 00 times Medical daily as Branch needed for Rash. hydrocortis Yes [id number] Apply to Univers one 2.5 % 9-04 area(s) 2 ity o f cream 00:00: (two) [place] 00 times Medical daily as Branch needed for Rash. hydrocortis Yes [id number] Apply to Univers one 2.5 % 9-04 area(s) 2 ity o f cream 00:00: (two) [place] 00 times Medical daily as Branch needed for Rash. hydrocortis Yes [id number] Apply to Univers one 2.5 % 9-04 area(s) 2 ity o f cream 00:00: (two) [place] 00 times Medical daily as Branch needed for Rash. hydroCHLORO 2019- No [id number] 12.5mg Take 1 [facility] thiazide 9-04 03-06 capsule by ity of 12.5 mg 00:00: 00:00 mouth [place] capsule 00 :00 daily. Medical Branch hydroCHLORO 2019- No [id number] 12.5mg Take 1 [facility] thiazide 7-15 09-04 capsule by ity of 12.5 mg 00:00: 00:00 mouth [place] capsule 00 :00 daily. Medical Branch hydroCHLORO 2019- No [id number] 12.5mg Take 1 [facility] thiazide 7-15 09- capsule by ity of 12.5 mg 00:00: 00:00 mouth [place] capsule 00 :00 daily. Medical Branch hydroCHLORO 2019-0 2019- No [id number] 12.5mg Take 1 [facility] thiazide 7-15 - capsule by ity of 12.5 mg 00:00: 00:00 mouth [place] capsule 00 :00 daily. Medical Branch ferrous 2019-0 Yes 325mg Take 325 Unive rs sulfate 6-12 mg by ity of (FEOSOL) 12:48: mouth [place] 325 mg (65 41 daily. Medical mg iron) Branch tablet NORETHINDRO 0 Yes Take by Un curry NE-E.ESTRAD 6-12 mouth. ity of IOL-IRON 12:48: [place] (LO 41 Medical LOESTRIN FE Branch ORAL) ferrous 2018-0 Yes 325mg Take 325 Unive rs sulfate 6-12 mg by ity of (FEOSOL) 12:48: mouth [place] 325 mg (65 41 daily. Medical mg iron) Branch tablet NORETHINDRO Yes Take by Un curry NE-E.ESTRAD 6-12 mouth. ity of IOL-IRON 12:48: [place] (LO 41 Medical LOESTRIN FE Branch ORAL) ferrous 2018-0 Yes 325mg Take 325 Unive rs sulfate 6-12 mg by ity of (FEOSOL) 12:48: mouth [place] 325 mg (65 41 daily. Medical mg iron) Branch tablet NORETHINDRO 0 Yes Take by Un curry NE-E.ESTRAD 6-12 mouth. ity of IOL-IRON 12:48: [place] (LO 41 Medical LOESTRIN FE Branch ORAL) escitalopra 2019-0 Yes 10mg Take 10 mg [facility] m (LEXAPRO) 6-12 by mouth. Col lege 10 MG 00:00: of tablet 00 Medicin e escitalopra 2019-0 Yes 10mg Take 10 mg [facility] m (LEXAPRO) 6-12 by mouth. Col lege 10 MG 00:00: of tablet 00 Medicin e escitalopra 2019-0 Yes 10mg Take 10 mg [facility] m (LEXAPRO) 6-12 by mouth. Col lege 10 MG 00:00: of tablet 00 Medicin e escitalopra 2018-0 Yes 10mg Take 10 mg Rob m (LEXAPRO) 6-12 by mouth. Col lege 10 MG 00:00: of tablet 00 Medicin e escitalopra Yes [id number] 10mg Take 1 Univers m oxalate 6-12 tablet by ity o f (LEXAPRO) 00:00: mouth [place] 10 mg 00 daily. Medical tablet Branch escitalopra Yes [id number] 10mg Take 1 Univers m oxalate 6-12 tablet by ity o f (LEXAPRO) 00:00: mouth [place] 10 mg 00 daily. Medical tablet Branch escitalopra Yes [id number] 10mg Take 1 Univers m oxalate 6-12 tablet by ity o f (LEXAPRO) 00:00: mouth [place] 10 mg 00 daily. Medical tablet Branch escitalopra Yes [id number] 10mg Take 1 Univers m oxalate 6-12 tablet by ity o f (LEXAPRO) 00:00: mouth [place] 10 mg 00 daily. Medical tablet Branch escitalopra Yes [id number] 10mg Take 1 Univers m oxalate 6-12 tablet by ity o f (LEXAPRO) 00:00: mouth [place] 10 mg 00 daily. Medical tablet Branch escitalopra Yes [id number] 10mg Take 1 Univers m oxalate 6-12 tablet by ity o f (LEXAPRO) 00:00: mouth [place] 10 mg 00 daily. Medical tablet Branch escitalopra Yes [id number] 10mg Take 1 Univers m oxalate 6-12 tablet by ity o f (LEXAPRO) 00:00: mouth [place] 10 mg 00 daily. Medical tablet Branch escitalopra 2020- No [id number] 10mg Take 1 Univers m oxalate 6-12 08-06 tablet by ity of (LEXAPRO) 00:00: 00:00 mouth [place] 10 mg 00 :00 daily. Medical tablet Branch escitalopra 2020- No [id number] 10mg Take 1 Univers m oxalate 6-12 08-06 tablet by ity of (LEXAPRO) 00:00: 00:00 mouth [place] 10 mg 00 :00 daily. Medical tablet Branch amoxicillin Yes 1{tbl} Take 1 Un curry -clavulanat 3-01 tablet by ity of e 00:00: mouth 2 [place] (AUGMENTIN) 00 (two) Medical 875-125 mg times Branch per tablet daily. amoxicillin Yes 1{tbl} Take 1 Un curry -clavulanat 3-01 tablet by ity of e 00:00: mouth 2 [place] (AUGMENTIN) 00 (two) Medical 875-125 mg times Branch per tablet daily. amoxicillin Yes 1{tbl} Take 1 Un curry -clavulanat 3-01 tablet by ity of e 00:00: mouth 2 [place] (AUGMENTIN) 00 (two) Medical 875-125 mg times Branch per tablet daily. Butalbital- Yes 1{capsu Take 1 U nivers Acetaminoph 2-12 le} capsule by it y of en-Caff 00:00: mouth [place] (FIORICET) 00 every 6 Medica l 50-300-40 (six) Branch mg per hours as capsule needed for Pain (scale 4-6). Butalbital- Yes 1{capsu Take 1 U nivers Acetaminoph 2-12 le} capsule by it y of en-Caff 00:00: mouth [place] (FIORICET) 00 every 6 Medica l 50-300-40 (six) Branch mg per hours as capsule needed for Pain (scale 4-6). Butalbital- Yes 1{capsu Take 1 U nivers Acetaminoph 2-12 le} capsule by it y of en-Caff 00:00: mouth [place] (FIORICET) 00 every 6 Medica l 50-300-40 (six) Branch mg per hours as capsule needed for Pain (scale 4-6). Vital Signs Vital Name Observation Time Observation Value Comments Source Systolic blood 2021-03-01 16:26:00 136 mm[Hg] [facility] pressure Medicine Diastolic blood 2021-03-01 16:26:00 86 mm[Hg] [facility] pressure Medicine Heart rate 2021-03-01 16:26:00 69 /min [facility] Body temperature 2021-03-01 16:26:00 36.22 [facility] Respiratory rate 2021-03-01 16:26:00 16 /min [facility] Body height 2021-03-01 16:26:00 157.5 cm [facility] C [facility]lege of Medicine Body weight 2021-03-01 16:26:[address] [facility] ollege of Medicine BMI 2021-03-01 16:26:00 37.13 kg/m2 [facility] ol[facility] of Medicine Oxygen saturation in 2021-03-01 16:26:00 100 /min [facility] blood by [facility] Pulse oximetry Systolic blood 2021-01-05 18:20:00 130 mm[Hg] [facility] pressure Medicine Diastolic blood 2021-01-05 18:20:00 80 mm[Hg] [facility] Medicine Heart rate 2021-01-05 18:20:00 82 /min [facility] ollege of Medicine Respiratory rate 2021-01-05 18:20:00 16 /min [facility] Body height 2021-01-05 18:20:[address] [facility] ollege of [facility] Body weight 2021-01-05 18:20:[address] [facility] ollege of [facility] BMI 2021-01-05 18:20:00 36.43 kg/m2 [facility] ollege of Medicine Systolic blood 2020-10-04 13:58:00 147 mm[Hg] [facility] pressure Medicine Diastolic blood 2020-10-04 13:58:00 98 mm[Hg] [facility] Medicine Heart rate 2020-10-04 13:58:00 92 /min [facility] ollege of Medicine Respiratory rate 2020-10-04 13:58:00 16 /min [facility] Body height 2020-10-04 13:58:[address] [facility] ollege of [facility] Body weight 2020-10-04 13:58:[address] [facility] ol[facility] of Medicine BMI 2020-10-04 13:58:00 35.78 kg/m2 [facility] ol[facility] of Medicine Systolic blood 2020-06-30 15:40:00 130 mm[Hg] [facility] of pressure Medicine Diastolic blood 2020-06-30 15:40:00 70 mm[Hg] [facility] pressure Medicine Heart rate 2020-06-30 15:40:00 106 /min [facility] ol[facility] of Medicine Respiratory rate 2020-06-30 15:40:00 16 /min [facility] Body height 2020-06-30 15:40:00 157.5 cm [facility] Body weight 2020-06-30 15:40:00 91.717 kg [facility] BMI 2020-06-30 15:40:00 36.98 kg/m2 [facility] Systolic blood 2019-12-16 01:10:00 135 mm[Hg] Univer sity of pressure [place] [facility] Diastolic blood 2019-12-16 01:10:00 71 mm[Hg] Unive rsity of pressure [facility] [place] Branch Heart rate 2019-12-16 01:10:00 94 /min [facility] [place] [facility] Respiratory rate 2019-12-16 01:10:00 18 /min Univ ersity [facility] [place] [facility] Oxygen saturation in 2019-12-16 01:10:00 98 /min University of Arterial blood by [employer] Pulse oximetry Branch Body temperature 2019-12-15 20:50:00 36.89 Terri [facility] ers[facility] [place] [facility] Body weight 2019-12-15 20:50:00 95.255 kg [facility] [place] [facility] BMI 2019-12-15 20:50:00 38.41 kg/m2 [facility] [place] [facility] Systolic blood 2019-12-15 20:26:00 135 mm[Hg] Univer sity of pressure [place] [facility] Diastolic blood 2019-12-15 20:26:00 85 mm[Hg] Unive rsity of pressure [place] [facility] Heart rate 2019-12-15 20:26:00 94 /min [facility] [place] [facility] Body temperature 2019-12-15 20:26:00 36.89 Terri [facility] [place] [facility] Respiratory rate 2019-12-15 20:26:00 18 /min Univ ersity [facility] [place] [facility] Body height 2019-12-15 20:26:00 157.5 cm [facility] [place] [facility] Body weight 2019-12-15 20:26:00 96.344 kg [facility] [place] [facility] BMI 2019-12-15 20:26:00 38.85 kg/m2 [facility] [place] [facility] Oxygen saturation in 2019-12-15 20:26:00 100 /min University of Arterial blood by [facility] Pulse oximetry Branch Systolic blood 2019-11-26 20:38:00 130 mm[Hg] Univer sity of pressure [facility] Diastolic blood 2019-11-26 20:38:00 80 mm[Hg] Unive rsity of pressure [facility] Body weight 2019-11-26 20:38:00 93.895 kg Universi ty of [facility] Systolic blood 2019-06-30 13:57:00 122 mm[Hg] [facility] Diastolic blood 2019-06-30 13:57:00 72 mm[Hg] [facility] Body temperature 2019-06-30 13:57:00 36.44 Ter[facility] Respiratory rate 2019-06-30 13:57:00 16 /min [facility] Body height 2019-06-30 13:57:00 160 cm [facility] Body weight 2019-06-30 13:57:00 92.08 kg [facility] BMI 2019-06-30 13:57:00 35.96 kg/m2 [facility] Heart rate 2019-06-26 22:19:00 120 /min Universi ty of [facility] Oxygen saturation in 2019-06-26 22:19:00 98 /min University of Arterial blood by [facility] Pulse oximetry Branch Body weight 2019-06-26 20:48:00 92.987 kg Universi ty of [facility] Systolic blood 2019-06-26 20:48:00 131 mm[Hg] Univer sity of [facility] Diastolic blood 2019-06-26 20:48:00 83 mm[Hg] Unive rsity of pressure [facility] Body temperature 2019-06-26 20:48:00 38.44 Terri Univ ersity of [facility] Systolic blood 2019-05-21 18:57:00 130 mm[Hg] [facility] Diastolic blood 2019-05-21 18:57:00 75 mm[Hg] [facility] Heart rate 2019-05-21 18:57:00 100 /min [facility] Body temperature 2019-05-21 18:57:00 37 Ter[facility] Respiratory rate 2019-05-21 18:57:00 16 /min [facility] Body height 2019-05-21 18:57:00 160 cm [facility] ollege of Medicine Body weight 2019-05-21 18:57:[address] [facility] ollege of [facility] BMI 2019-05-21 18:57:00 35.07 kg/m2 [facility] ol[facility] of Medicine Systolic blood 2019-02-24 21:03:00 139 mm[Hg] [facility] of pressure Medicine Diastolic blood 2019-02-24 21:03:00 86 mm[Hg] [facility] pressure Medicine Heart rate 2019-02-24 21:03:00 99 /min [facility] ollege of Medicine Body temperature 2019-02-24 21:03:00 36.67 [facility] Respiratory rate 2019-02-24 21:03:00 16 /min [facility] Body height 2019-02-24 21:03:[address] [facility] ol[facility] of Medicine Body weight 2019-02-24 21:03:00 [facility]903 [facility] BMI 2019-02-24 21:03:00 35.11 kg/m2 [facility] ol[facility] of Medicine Systolic blood 2019-02-24 21:03:00 139 mm[Hg] [facility] pressure Medicine Diastolic blood 2019-02-24 21:03:00 86 mm[Hg] [facility] pressure Medicine Heart rate 2019-02-24 21:03:00 99 /min [facility] ol[facility] of Medicine Body temperature 2019-02-24 21:03:00 36.67 [facility] Respiratory rate 2019-02-24 21:03:00 16 /min [facility] Body height 2019-02-24 21:03:[address] [facility] ol[facility] of Medicine Body weight 2019-02-24 21:03:[address] [facility] of Medicine BMI 2019-02-24 21:03:00 35.11 kg/m2 [facility] ol[facility] of Medicine Systolic blood 2019-01-27 16:59:00 140 mm[Hg] [facility] of pressure Medicine Diastolic blood 2019-01-27 16:59:00 82 mm[Hg] [facility] of pressure Medicine Heart rate 2019-01-27 16:59:00 88 /min [facility] ollege of Medicine Body temperature 2019-01-27 16:59:00 37 [facility] Body height 2019-01-27 16:59:[address] [facility] ol[facility] of Medicine Body weight 2019-01-27 16:59:[address] [facility] of Medicine BMI 2019-01-27 16:59:00 33.66 kg/m2 [facility] ol[facility] of Medicine Systolic blood 2019-01-27 16:59:00 140 mm[Hg] [facility] pressure Medicine Diastolic blood 2019-01-27 16:59:00 82 mm[Hg] [facility] Medicine Heart rate 2019-01-27 16:59:00 88 /min [facility] ollege of [facility] Body temperature 2019-01-27 16:59:00 37 [facility] Body height 2019-01-27 16:59:[address] [facility] ollege of [facility] Body weight 2019-01-27 16:59:00 [facility].183 [facility] BMI 2019-01-27 16:59:00 33.66 [facility]m2 [facility] Systolic blood 2018-12-24 19:08:00 132 mm[Hg] Univer sity of pressure [facility] Diastolic blood 2018-12-24 19:08:00 84 mm[Hg] Unive rsity of pressure [facility] Body weight 2018-12-24 19:08:00 84.823 kg Universi ty of [facility] Systolic blood 2019-12-24 14:44:00 123 mm[Hg] Univer sity of pressure [facility] Diastolic blood 2019-12-24 14:44:00 73 mm[Hg] Unive rsity of pressure [facility] Heart rate 2019-12-24 14:44:00 98 /min [facility]i ty of [facility] Respiratory rate 2019-12-24 14:37:00 18 /min Univ ersity of [facility] Body height 2019-12-24 14:37:00 157.5 cm Universi ty of [facility] Body weight 2019-12-24 14:37:00 93.396 kg Universi ty of [facility] BMI 2019-12-24 14:37:00 37.66 kg/m2 [facility] Oxygen saturation in 2019-12-16 01:10:00 98 /min University Arterial blood by [facility] Pulse oximetry Branch Body temperature 2019-12-15 20:50:00 36.89 [facility] Procedures Procedure Date / Time Performing Clinician Source Performed EXTERNAL PROVIDER RECORDS 2020-01-06 05:01:00 Doctor Unassigned, No [facility] EXTERNAL PROVIDER RECORDS 2020-01-06 05:01:00 Doctor Unassigned, No [facility] CONSENT TO TREATMENT WITH 2019-12-24 05:01:00 Doctor Unassigned, No [facility] PSYCHOACTIVE MEDICATION [facility] CONSENT TO TREATMENT WITH 2019-12-24 05:01:00 Doctor Unassigned, No [facility] PSYCHOACTIVE [facility]IENT 2019-12-24 05:01:00 Doctor Unassigned, No [facility] AUTHORIZATION FOR RELEASE 2019-12-24 05:01:00 Doctor Unassigned, No [facility] CT CERVICAL SPINE WO 2019-12-15 22:08:12 Mariel William [facility] CONTRAST [facility] CT HEAD WO CONTRAST 2019-12-15 22:08:12 Mariel William [facility] CT HEAD WO CONTRAST 2019-12-15 22:08:12 Mariel William [facility] CT CERVICAL SPINE WO 2019-12-15 22:08:12 Mariel William [facility] CONTRAST [facility] XR CHEST 1 VW 2019-12-15 22:07:39 Mariel [facility] XR CHEST 1 VW 2019-12-15 22:07:39 Mariel [facility] TROPONIN I 2019-12-15 21:51:00 Mariel [facility] BASIC METABOLIC PANEL 2019-12-15 21:51:00 [facility] (NA, K, CL, CO2, GLUCOSE, Medica l Branch BUN, CREATININE, CA) CBC WITH DIFF 2019-12-15 21:51:00 Mariel [facility] URINALYSIS 2019-12-15 21:51:00 Mariel [facility] CBC WITH DIFF 2019-12-15 21:51:00 Mariel [facility] BASIC METABOLIC PANEL 2019-12-15 21:51:00 Mariel [facility] (NA, K, CL, CO2, GLUCOSE, Medica l Branch BUN, CREATININE, CA) URINALYSIS 2019-12-15 21:51:00 Mariel [facility] TROPONIN I 2019-12-15 21:51:00 Mariel [facility] EKG-12 LEAD 2019-12-15 21:44:40 [facility] 2019-12-15 21:27:38 [facility] EKG-12 LEAD 2019-12-15 21:27:38 William, [facility] CONSENT/REFUSAL FOR 2019-12-15 20:41:58 Doctor Unassigned, No [facility] [place] DIAGNOSIS AND TREATMENT [facility] CONSENT/REFUSAL FOR 2019-12-15 20:41:58 Doctor Unassigned, No Un [facility]ity [facility] DIAGNOSIS AND TREATMENT [facility] NOTICE OF PRIVACY 2019-12-15 20:41:45 Doctor Unassigned, No Univ ersity [facility] NOTICE OF PRIVACY 2019-12-15 20:41:45 Doctor Unassigned, No Univ ersity [facility] [place] EMERGENCY SERVICES 2019-12-15 05:01:00 Doctor Unassigned, No [facility] AGREEMENTS AND [facility] AUTHORIZATIONS POCT GRP A STREP 2019-06-26 00:00:00 Ines Bar [facility] (MOLECULAR) [facility] POCT FLU A AND B 2019-06-26 00:00:00 Ines Bar [facility] (MOLECULAR) [facility] EXTERNAL PROVIDER RECORDS 2019-05-06 06:01:00 Doctor Unassigned, No [facility] POCT URINALYSIS DIPSTICK 2019-01-27 00:00:00 Lambert Bass [facility] ÓSCAR,POST-VOID 2019-01-27 00:00:00 Lambert Bass [facility] Medicine Plan of Care Planned Activity Planned Date Details Comments Source Future Scheduled 2021-03-01 DIRECT ANTIGLOBULIN Ordered: [facility] Test 11:08:17 TEST [code = 06468] 03/01/2021 of Medic ine Future Scheduled 2021-03-01 VITAMIN D 25 HYDROXY Ordered: [facility] Test 11:08:17 [code = 1989-3] 03/01/2021 of Medicine Future Scheduled 2021-03-01 COMPREHENSIVE METABOLIC Ordered: [facility] Test 10:58:39 PANEL [code = 58443-7] 03/01/2021 of Me dicine Future Scheduled 2021-03-01 SEDIMENTATION RATE Ordered: [facility] Test 10:58:39 MODIFIED WESTERGREN 03/01/2021 of Medic ine [code = 4537-7] Future Scheduled 2021-03-01 C-REACTIVE PROTEIN Ordered: [facility] Test 10:58:39 [code = 1988-5] 03/01/2021 of Medicine Future Scheduled 2021-03-01 SJOGREN'S SS-A AND SS-B Ordered: [facility] Test 10:57:28 ANTIBODIES [code = 03/01/2021 of Medici ne NOCPT] Future Scheduled 2021-03-01 DNA DS ANTIBODY [code = Ordered: [facility] Test 10:57:28 NOCPT] 03/01/2021 of Medicine Future Scheduled 2021-03-01 COMPLEMENT C3 AND C4 Ordered: [facility] Test 10:57:28 [code = NOCPT] 03/01/2021 of Medicine Future Scheduled 2021-03-01 URINALYSIS, COMPLETE Ordered: [facility] Test 10:57:28 W/REFLEX TO CULTURE 03/01/2021 of Medic ine [code = 25486-7] Future Scheduled 2021-03-01 RANDOM URINE Ordered: [facility] Test 10:57:28 PROTEIN/CREATININE 03/01/2021 of Medici ne [code = 2890-2] Future Scheduled 2021-03-01 CARDIOLIPIN ANTIBODIES Ordered: [facility] Test 10:57:28 [code = 87029] 03/01/2021 of Medicine Future Scheduled 2021-03-01 BETA-2 GLYCOPROTEIN Ordered: [facility] Test 10:57:28 ANTIBODIES [code = 03/01/2021 of Medici ne 1953-] Future Scheduled 2021-03-01 LUPUS ANTICOAGULANT Ordered: [facility] Test 10:57:28 WITH REFLEX [code = 03/01/2021 of Medic ine NOCPT] Future Scheduled 2021-03-01 RHEUMATOID FACTOR [code Ordered: [facility] Test 10:57:28 = 52263-1] 03/01/2021 of Medicine Future Scheduled 2021-03-01 CCP AB (IGG/IGA) [code Ordered: [facility] Test 10:57:28 = 74425-3] 03/01/2021 of Medicine Future Scheduled 2021-03-01 CK [code = 2157-6] Ordered: [facility] Test 10:57:28 03/01/2021 of Medicine Future Scheduled 2021-03-01 SCLERODERMA DIAGNOSTIC Ordered: [facility] Test 10:57:28 PROFILE [code = NOCPT] 03/01/2021 of Me dicine Future Scheduled 2021-03-01 MYASTHENIA GRAVIS PANEL Ordered: [facility] Test 10:57:28 W/RFLX [code = NOCPT] 03/01/2021 of Med icine Future Scheduled 2021-03-01 YOCASTA W REFLEX TITER Ordered: [facility] [place] Test 10:57:27 [code = NOCPT] 03/01/2021 of Medicine Future Scheduled 2021-03-01 BASS (SM) ANTIBODY Ordered: [facility] or [facility] Test 10:57:27 [code = 26508-4] 03/01/2021 of Medicine Future Scheduled 2021-03-01 CRIB PAD MAKER ANTIBODY [code = Ordered: [facility] Test 10:57:27 NOCPT] 03/01/2021 of Medicine Future Scheduled 2021-03-01 HPV VACCINE (1 - 2-dose [facility] Test 10:26:36 series) [code = HPV of Medic ine VACCINE (1 - 2-dose series)] Future Scheduled 2021-03-01 COVID-19 Vaccine (1) [facility] Test 10:26:36 [code = COVID-19 of Medicine Vaccine (1)] Future Scheduled 2021-03-01 TETANUS SHOT (ADULT) [facility] [employer] Test 10:26:36 [code = TETANUS SHOT of Medi cine (ADULT)] Future Scheduled 2021-03-01 BMI FOLLOW UP PLAN [employer] Test 10:26:36 [code = BMI FOLLOW UP of Med icine PLAN] Future Scheduled 2021-03-01 Hepatitis C screening [employer] Test 10:26:36 (procedure) [code = of Medic ine 698772942] Future Scheduled 2021-03-01 Human immunodeficiency [employer] Test 10:26:36 virus screening of Medicine (procedure) [code = 462846930] Future Scheduled 2021-03-01 Screening for malignant [facility] [employer] Test 10:26:36 neoplasm of cervix of Medici ne (procedure) [code = 039087487] Future Scheduled 2021-03-01 FLU VACCINE > 6 MONTHS [employer] Test 10:26:36 [code = FLU VACCINE > 6 of M edicine MONTHS] Future Scheduled 2021-01-05 HPV VACCINE (1 - 2-dose [facility] Test 14:35:14 series) [code = HPV of Medic ine VACCINE (1 - 2-dose series)] Future Scheduled 2021-01-05 COVID-19 Vaccine (1) [employer] [facility] [employer] Test 14:35:14 [code = COVID-19 of Medicine Vaccine (1)] Future Scheduled 2021-01-05 TETANUS SHOT (ADULT) [employer] [facility] Test 14:35:14 [code = TETANUS SHOT of Medi cine (ADULT)] Future Scheduled 2021-01-05 BMI FOLLOW UP PLAN [facility] Test 14:35:14 [code = BMI FOLLOW UP of Med icine PLAN] Future Scheduled 2021-01-05 Hepatitis C screening [employer] Test 14:35:14 (procedure) [code = of Medic ine 500933851] Future Scheduled 2021-01-05 Human immunodeficiency [facility] [employer] Test 14:35:14 virus screening of Medicine (procedure) [code = 675809065] Future Scheduled 2021-01-05 Screening for malignant [facility] [employer] Test 14:35:14 neoplasm of cervix of Medici ne (procedure) [code = 890713375] Future Scheduled 2021-01-05 FLU VACCINE > 6 MONTHS [employer] Test 14:35:14 [code = FLU VACCINE > 6 of M edicine MONTHS] Future Scheduled 2021-01-05 HPV VACCINE (1 - 2-dose [facility] Test 14:35:14 series) [code = HPV of Medic ine VACCINE (1 - 2-dose series)] Future Scheduled 2021-01-05 COVID-19 Vaccine (1) [facility] Test 14:35:14 [code = COVID-19 of Medicine Vaccine (1)] Future Scheduled 2021-01-05 TETANUS SHOT (ADULT) [facility] Test 14:35:14 [code = TETANUS SHOT of Medi cine (ADULT)] Future Scheduled 2021-01-05 BMI FOLLOW UP PLAN [facility] Test 14:35:14 [code = BMI FOLLOW UP of Med icine PLAN] Future Scheduled 2021-01-05 Hepatitis C screening [facility] Test 14:35:14 (procedure) [code = of Medic ine 831974714] Future Scheduled 2021-01-05 Human immunodeficiency [facility] Test 14:35:14 virus screening of Medicine (procedure) [code = 504457572] Future Scheduled 2021-01-05 Screening for malignant [facility] Test 14:35:14 neoplasm of cervix of Medici ne (procedure) [code = 430730619] Future Scheduled 2021-01-05 FLU VACCINE > 6 MONTHS [facility] Test 14:35:14 [code = FLU VACCINE > 6 of M edicine MONTHS] Future Scheduled 2021-01-05 CBC W/AUTO DIFF WITH Ordered: [facility] Test 13:45:30 PLATELETS [code = 01/05/2021 of Medicin e 77011-5] Future Scheduled 2021-01-05 COMPREHENSIVE METABOLIC Ordered: [facility] Test 13:45:30 PANEL [code = 18377-4] 01/05/2021 of Me dicine Future Scheduled 2021-01-05 VITAMIN D 25 HYDROXY Ordered: [facility] Test 13:45:30 [code = 1989-3] 01/05/2021 of Medicine Future Scheduled 2021-01-05 URINALYSIS AUTO W/SCOPE Ordered: [facility] Test 13:45:30 [code = 39589-9] 01/05/2021 of Medicine Future Scheduled 2021-01-05 RANDOM URINE Ordered: [facility] Test 13:45:30 PROTEIN/CREATININE 01/05/2021 of Medici ne [code = 2890-2] Future Scheduled 2021-01-05 YOCASTA W REFLEX TITER Ordered: [facility] Test 13:45:30 [code = NOCPT] 01/05/2021 of Medicine Future Scheduled 2021-01-05 DSDNA CRITHIDIA Ordered: [facility] Test 13:45:30 LUCILIAE IFA [code = 01/05/2021 of [facility] 6457-6] Future Scheduled 2021-01-05 C3 COMPLEMENT [code = Ordered: [employer] Test 13:45:30 4485-9] 01/05/2021 of Medicine Future Scheduled 2021-01-05 C4 COMPLEMENT [code = Ordered[facility] [employer] Test 13:45:30 4498-2] 01/05/2021 of Medicine Future Scheduled 2021-01-05 CBC W/AUTO DIFF WITH Ordered: [facility] Test 13:45:30 PLATELETS [code = 01/05/2021 of Medicin e 07922-5] Future Scheduled 2021-01-05 COMPREHENSIVE METABOLIC Ordered: [facility] Test 13:45:30 PANEL [code = 56382-7] 01/05/2021 of Me dicine Future Scheduled 2021-01-05 VITAMIN D 25 HYDROXY Ordered: [facility] Test 13:45:30 [code = 1989-3] 01/05/2021 of Medicine Future Scheduled 2021-01-05 URINALYSIS AUTO W/SCOPE Ordered: [facility] Test 13:45:30 [code = 96073-6] 01/05/2021 of Medicine Future Scheduled 2021-01-05 RANDOM URINE Ordered: [facility] Test 13:45:30 PROTEIN/CREATININE 01/05/2021 of Medici ne [code = 2890-2] Future Scheduled 2021-01-05 YOCASTA W REFLEX TITER Ordered: [facility] Test 13:45:30 [code = NOCPT] 01/05/2021 of Medicine Future Scheduled 2021-01-05 DSDNA CRITHIDIA Ordered: [facility] C [facility] Test 13:45:30 LUCILIAE IFA [code = 01/05/2021 of [facility] 6457-6] Future Scheduled 2021-01-05 C3 COMPLEMENT [code = Ordered: [facility] [employer] Test 13:45:30 4485-9] 01/05/2021 of Medicine Future Scheduled 2021-01-05 C4 COMPLEMENT [code = Ordered: [facility] [employer] Test 13:45:30 4498-2] 01/05/2021 of Medicine Future Scheduled 2020-10-04 HPV VACCINE (1 - 2-dose [facility] Test 08:58:45 series) [code = HPV of Medic ine VACCINE (1 - 2-dose series)] Future Scheduled 2020-10-04 COVID-19 Vaccine (1) [facility] Test 08:58:45 [code = COVID-19 of Medicine Vaccine (1)] Future Scheduled 2020-10-04 TETANUS SHOT (ADULT) [employer] [facility] Test 08:58:45 [code = TETANUS SHOT of Medi cine (ADULT)] Future Scheduled 2020-10-04 BMI FOLLOW UP PLAN [facility] Test 08:58:45 [code = BMI FOLLOW UP of Med icine PLAN] Future Scheduled 2020-10-04 Hepatitis C screening Ba [facility] Test 08:58:45 (procedure) [code = of Medic ine 338654538] Future Scheduled 2020-10-04 Human immunodeficiency [facility] Test 08:58:45 virus screening of Medicine (procedure) [code = 033747867] Future Scheduled 2020-10-04 Screening for malignant [facility] Test 08:58:45 neoplasm of cervix of Medici ne (procedure) [code = 719513646] Future Scheduled 2020-10-04 FLU VACCINE > 6 MONTHS [facility] Test 08:58:45 [code = FLU VACCINE > 6 of M edicine MONTHS] Diagnostic Test 2020-10-04 CBC W/AUTO DIFF WITH Expected: [facility] or [place] Pending 00:00:00 PLATELETS [code = 10/04/2020, of Medicin e 97288-5] Expires: 04/05/2021 Diagnostic Test 2020-10-04 COMPREHENSIVE METABOLIC Expected: [facility] Pending 00:00:00 PANEL [code = 24989-5] 10/04/2020, of Co dicine Expires: 04/05/2021 Diagnostic Test 2020-10-04 VITAMIN D 25 HYDROXY Expected: [facility] [place] Pending 00:00:00 [code = 1989-3] 10/04/2020, of Medicine Expires: 04/05/2021 Diagnostic Test 2020-10-04 IRON+TIBC+%SAT [code = Expected: [facility] Pending 00:00:00 NOCPT] 10/04/2020, of Medicine Expires: 04/05/2021 Diagnostic Test 2020-10-04 FERRITIN [code = Expected: [facility] Pending 00:00:00 91196-9] 10/04/2020, of Medicine Expires: 04/05/2021 Diagnostic Test 2020-10-04 URINALYSIS AUTO W/SCOPE Expected: [facility] Pending 00:00:00 [code = 09034-8] 10/04/2020, of Medicine Expires: 04/05/2021 Diagnostic Test 2020-10-04 RANDOM URINE Expected: [facility] ge Pending 00:00:00 PROTEIN/CREATININE 10/04/2020, of Medici ne [code = 2890-2] Expires: 04/05/2021 Diagnostic Test 2020-10-04 C4 COMPLEMENT [code = Expected: [facility] Pending 00:00:00 4498-2] 10/04/2020, of Medicine Expires: 04/05/2021 Diagnostic Test 2020-10-04 C3 COMPLEMENT [code = Expected: [facility] Pending 00:00:00 4485-9] 10/04/2020, of Medicine Expires: 04/05/2021 Diagnostic Test 2020-10-04 HCG QUALITATIVE, SERUM Expected: [facility] Pending 00:00:00 [code = 2110-5] 10/04/2020, of [facility] Expires: 04/05/2021 Diagnostic Test 2020-10-04 ANTI DNA, DOUBLE Expected: [facility] Marlene [facility] Pending 00:00:00 STRANDED REFLEX [code = 10/04/2020, of M edicine 29553] Expires: 04/05/2021 Diagnostic Test 2019-07-31 CBC W/AUTO DIFF WITH Expected: [facility] Pending 00:00:00 PLATELETS [code = 07/31/2019, of Medicin e 09773-1] Expires: 12/31/2019 Diagnostic Test 2019-07-31 COMPREHENSIVE METABOLIC Expected: [facility] Pending 00:00:00 PANEL [code = 19816-7] 07/31/2019, of Co dicine Expires: 12/31/2019 Diagnostic Test 2019-07-31 URINALYSIS AUTO W/SCOPE Expected: [facility] Pending 00:00:00 [code = 01559-5] 07/31/2019, of [facility] Expires: 12/31/2019 Diagnostic Test 2019-07-31 RANDOM URINE Expected: [facility] [employer] Pending 00:00:00 PROTEIN/CREATININE 07/31/2019, of Medici ne [code = 2890-2] Expires: 12/31/2019 Diagnostic Test 2019-06-20 CBC W/AUTO DIFF WITH Expected: [facility] Pending 00:00:00 PLATELETS [code = 06/20/2019, of Medicin e 79177-3] Expires: 11/19/2019 Diagnostic Test 2019-06-20 COMPREHENSIVE METABOLIC Expected: [facility] Pending 00:00:00 PANEL [code = 30233-9] 06/20/2019, of Me dicine Expires: 11/19/2019 Diagnostic Test 2019-06-20 HCG QUALITATIVE, SERUM Expected: [facility] Pending 00:00:00 [code = 2110-5] 06/20/2019, of Medicine Expires: 11/19/2019 Diagnostic Test 2019-06-20 C3 COMPLEMENT [code = Expected: [facility] Pending 00:00:00 4485-9] 06/20/2019, of Medicine Expires: 11/19/2019 Diagnostic Test 2019-06-20 C4 COMPLEMENT [code = Expected: [facility] Pending 00:00:00 4498-2] 06/20/2019, of Medicine Expires: 11/19/2019 Diagnostic Test 2019-06-20 URINALYSIS AUTO W/SCOPE Expected: [facility] Pending 00:00:00 [code = 38811-4] 06/20/2019, of Medicine Expires: 11/19/2019 Diagnostic Test 2019-06-20 RANDOM URINE Expected: [facility] Pending 00:00:00 PROTEIN/CREATININE 06/20/2019, of Medici ne [code = 2890-2] Expires: 11/19/2019 Future Scheduled COMPREHENSIVE METABOLIC Ordered: [facility] Test PANEL [code = 54314-0] 02/24/2019 of Me dicine Future Scheduled C3 COMPLEMENT [code = Ordered: [facility] Test 4485-9] 02/24/2019 of Medicine Future Scheduled C4 COMPLEMENT [code = Ordered: [facility] Test 4498-2] 02/24/2019 of Medicine Future Scheduled URINALYSIS AUTO W/SCOPE Ordered: [facility] Test [code = 95550-1] 02/24/2019 of Medicine Future Scheduled RANDOM URINE Ordered: [facility] Test PROTEIN/CREATININE 02/24/2019 of Medici ne [code = 2890-2] Future Scheduled UREA NITROGEN, 24 HOUR Ordered: [facility] [employer] Test URINE [code = NOCPT] 02/24/2019 of Medi cine Future Scheduled PROTEIN, 24 HR URINE Ordered: [facility] Test [code = 2889-4] 02/24/2019 of Medicine Future Scheduled CREATININE, 24HR URINE Ordered: [facility] [employer] Test [code = 2162-6] 02/24/2019 of Medicine Future Scheduled TETANUS SHOT (ADULT) [employer] Test [code = TETANUS SHOT of Medi cine (ADULT)] Future Scheduled BMI FOLLOW UP PLAN [employer] Test [code = BMI FOLLOW UP of Med icine PLAN] Future Scheduled HIV SCREENING [code = [employer] [facility] HIV SCREENING] of Medicine Future Scheduled FLU VACCINE > 6 MONTHS [employer] Test [code = FLU VACCINE > 6 of M edicine MONTHS] Future Scheduled URINALYSIS AUTO W/SCOPE Ordered: [facility] Test [code = 34692-9] 05/21/2019 of Medicine Future Scheduled RANDOM URINE Ordered: [facility] Test PROTEIN/CREATININE 05/21/2019 of Medici ne [code = 2890-2] Future Scheduled TETANUS SHOT (ADULT) [employer] Test [code = TETANUS SHOT of Medi cine (ADULT)] Future Scheduled BMI FOLLOW UP PLAN [employer] Test [code = BMI FOLLOW UP of Med icine PLAN] Future Scheduled HIV SCREENING [code = [employer] [facility] HIV SCREENING] of Medicine Future Scheduled CBC W/AUTO DIFF WITH Ordered: [facility] Test PLATELETS [code = 06/30/2019 of Medicin e 92466-7] Future Scheduled COMPREHENSIVE METABOLIC Ordered: [facility] Test PANEL [code = 50236-7] 06/30/2019 of Me dicine Future Scheduled PHOSPHORUS [code = Ordered: [facility] Test 2777-1] 06/30/2019 of Medicine Future Scheduled VITAMIN D 25 HYDROXY Ordered: [facility] Test [code = 1989-3] 06/30/2019 of Medicine Future Scheduled URINALYSIS AUTO W/SCOPE Ordered: [facility] Test [code = 73279-6] 06/30/2019 of Medicine Future Scheduled RANDOM URINE Ordered: [facility] Test PROTEIN/CREATININE 06/30/2019 of Medici ne [code = 2890-2] Future Scheduled C3 COMPLEMENT [code = Ordered: [employer] [facility] 4485-9] 06/30/2019 of Medicine Future Scheduled C4 COMPLEMENT [code = Ordered: [employer] Test 4498-2] 06/30/2019 of Medicine Future Scheduled HCG QUALITATIVE, SERUM Ordered: [facility] [employer] Test [code = 2110-5] 06/30/2019 of Medicine Future Scheduled TETANUS SHOT (ADULT) [employer] Test [code = TETANUS SHOT of Medi cine (ADULT)] Future Scheduled BMI FOLLOW UP PLAN [employer] Test [code = BMI FOLLOW UP of Med icine PLAN] Future Scheduled HIV SCREENING [code = [employer] [facility] HIV SCREENING] of Medicine Future Scheduled CBC W/AUTO DIFF WITH Ordered: [facility] Test PLATELETS [code = 06/30/2020 of Medicin e 39350-5] Future Scheduled COMPREHENSIVE METABOLIC Ordered: [facility] Test PANEL [code = 26584-2] 06/30/2020 of Me dicine Future Scheduled C4 COMPLEMENT [code = Ordered[facility] [employer] [facility] 4498-2] 06/30/2020 of Medicine Future Scheduled C3 COMPLEMENT [code = Ordered: [employer] [facility] 4485-9] 06/30/2020 of Medicine Future Scheduled URINALYSIS AUTO W/SCOPE Ordered: [facility] Test [code = 15317-3] 06/30/2020 of Medicine Future Scheduled RANDOM URINE Ordered: [facility] ege Test PROTEIN/CREATININE 06/30/2020 of Medici ne [code = 2890-2] Future Scheduled HCG QUALITATIVE, SERUM Ordered: [facility] Test [code = 2109-] 06/30/2020 of Medicine Future Scheduled VITAMIN D 25 HYDROXY Ordered: [facility] Test [code = 1989-3] 06/30/2020 of Medicine Future Scheduled COVID-19 Vaccine [facility] Test Evaluation [code = of Medici ne COVID-19 Vaccine Evaluation] Future Scheduled HPV VACCINE (1 - 2-dose [facility] Test series) [code = HPV of Medic ine VACCINE (1 - 2-dose series)] Future Scheduled TETANUS SHOT (ADULT) [employer] Test [code = TETANUS SHOT of Medi cine (ADULT)] Future Scheduled BMI FOLLOW UP PLAN [employer] Test [code = BMI FOLLOW UP of Med icine PLAN] Future Scheduled Hepatitis C screening [facility] Test (procedure) [code = of Medic ine 221767763] Future Scheduled [facility] virus screening of Medicine (procedure) [code = 799224163] Future Scheduled Screening for malignant [facility] Test neoplasm of cervix of Medici ne (procedure) [code = 105279949] Future Scheduled URINALYSIS AUTO W/SCOPE Ordered: [facility] Test [code = 28690-2] 01/27/2019 of Medicine Future Scheduled CULTURE, Ordered: [facility] Test URINE/SENSITIVITY ON 01/27/2019 of Medi cine ALL [code = 20727-0] Future Scheduled TETANUS SHOT (ADULT) [employer] Test [code = TETANUS SHOT of Medi cine (ADULT)] Future Scheduled HIV SCREENING [code = [employer] [facility] HIV SCREENING] of Medicine Future Scheduled FLU VACCINE > 6 MONTHS [employer] Test [code = FLU VACCINE > 6 of M edicine MONTHS] Future Scheduled CBC W/AUTO DIFF WITH Ordered: [facility] Test PLATELETS [code = 02/24/2019 of Medicin e 36472-7] Future Scheduled US RENAL BILATERAL 1 Occurrences [facility] or [facility] Test [code = 06109] starting of Medicine 01/27/2019 until 01/28/2020 Encounters Start End Encounter Admission Attending Care Care Encounter Source Date/Time Date/Time Type Type Clinicians Facility Department ID 2021-02-17 Emergency [facility] [id number] Univers 14:28:51 [facility] 2021-03-15 2021-03-15 Outpatient R ADILENE, [facility] [id number] -20 Univers 14:30:00 14:30:00 INES [id number] [facility] 2021-03-01 2021-03-01 Office PEDRO LUIS WITT 1.2.840.[id number] [place] [address] 10:20:48 14:07:07 Visit LAURIE AMBULATOR 350.1.13.21 College Y 0.2.7.2.686 of [id number] Medi jerman 370 e 2021-01-05 2021-01-05 Office PEDRO LUIS Lr 1.2.840.114 [id number] [facility] 12:58:40 13:55:30 Visit Holger AMBULATOR 350.1.13.21 College Y 0.2.7.2.686 of [id number] [facility] 335 e 2020-12-01 2020-12-[address] [facility] [id number] [facility] 10:55:26 11:40:31 HOLGER Brandg e of Medicin e 2020-10-04 2020-10-04 Office PEDRO LUIS Lr 1.2.840.114 [id number] [facility] 08:53:15 09:18:16 Visit Holger AMBULATOR 350.1.13.21 College Y 0.2.7.2.686 of [id number] [facility] 335 e 2020-07-12 2020-07-12 Patient Sathish [facility] 1.2.840.114 [id number] Univers 00:00:00 00:00:00 Outreach [place] PRIMARY 350.1.13.10 i ty of [facility] [place] [id number] Co dical [address] 2020-06-30 2020-06-30 Office HARJIT Lr 1.2.840.114 [id number] [facility] 09:38:55 10:11:18 Visit Holger AMBULATOR 350.1.13.21 College Y 0.2.7.2.686 of [id number] [facility] 335 e 2020-05-26 2020-05-26 Outpatient R FRED, [facility] [id number] -20 Univers 13:15:00 13:15:00 GARRY [id number] [facility] 2020-01-27 2020-01-27 Outpatient R [facility] [id number] -20 Univers 08:45[facility]45[facility] 2020-[facility] 2020-01-27 Outpatient R WENCESLAO, [facility] [id number] Univers 08:45:00 08:45:00 ESTEFANIA [facility] 2020-01-06 2020-01-06 Orders Doctor 1.2.840.5 [id number] Univers 00:00:00 00:00:00 Only Unassigned, 52761.1.1 ity of [place] 3.104.2.7 [place] .3.882253 Medica l .8 [place] 2019-12-31 2019-12-31 Outpatient R FRED, [facility] [id number] -20 Univers 08:00:00 08:00:00 GARRY ity of [facility] 2019-12-24 2019-12-24 Outpatient R [facility] [id number] -20 Univers 09:30:00 09:30:00 ity of [facility] 2019-12-24 2019-12-24 Outpatient R THONG, [facility] [id number] Univers 09:30:00 09:30:00 EDYTHE ity of [facility] 2019-12-24 2019-12-24 Travel 1.2.840.1 1.2.223.758 [id number] Univers 00:00:00 00:00:00 75913.1.1 350.1.13.10 ity of 3.104.2.7 4[place].3.698 [place] .3.401236 084.8 Medica l .8 [place] 2019-12-24 2019-12-24 Orders Doctor 1.2.840.6 [id number] Univers 00:00:00 00:00:00 Only Unassigned, 39732.1.1 ity of [place] 3.104.2.7 [place] .3.544166 Medica l .8 [place] 2019-12-17 2019-12-17 Outpatient R [facility] [id number] -20 Univers 09:30:00 09:30:00 [id number] ity of [facility] 2019-12-17 2019-12-17 [facility] [id number] Univers 09:30:00 09:30:00 EDYTHE ity of [facility] 2019-12-15 2019-12-15 Emergency William, 1.2.840.2 [id number] Univers 15:45:00 20:18:00 Mariel S 90734.1.1 ity of 3.104.2.7 [place] .3.837300 Medica l .8 [place] 2019-12-15 2019-12-15 Urgent Anene, Quentin 1.2.840.1 [id number] Univers 15:21:15 15:38:44 Care Provider, [facility] 91765.1.1 ity of 3.104.2.7 [place] .3.497031 Medica l .8 [place] 2019-12-15 2019-12-15 Outpatient R [facility] [id number] -20 Univers 15:20:00 15:20:00 [id number] ity of [facility] 2019-12-15 2019-12-15 Outpatient R [facility] [id number] Univers 15:20:00 15:20:00 ity of [facility] 2019-12-15 2019-12-15 Travel 1.2.840.1 1.2.296.183 [id number] Univers 00:00:00 00:00:00 74723.1.1 350.1.13.10 ity of 3.104.2.7 [place]3.698 [place] .3.367478 084.8 Medica l .8 [place] 2019-12-04 2019-12-04 Telephone Cintron, 1.2.840.3 [id number] Univers 00:00:00 00:00:00 Garry 79655.1.1 ity of 3.104.2.7 [place] .3.658144 Medica l .8 [place] 2019-12-03 2019-12-03 Telephone Cintron, 1.2.840.2 [id number] Univers 00:00:00 00:00:00 Garry 65340.1.1 ity of 3.104.2.7 [place] .3.471095 Medica l .8 [place] 2019-11-26 2019-11-26 Office Cintron, 1.2.840.8 [id number] Univers 15:37:54 15:57:05 Visit Garry 90410.1.1 ity of 3.104.2.7 [place] .3.299658 Medica l .8 [place] 2019-11-26 2019-11-26 Outpatient R FRED, [facility] [id number] -20 Univers 15:30:00 15:30:00 GARRY ity of [facility] 2019-11-26 2019-11-26 Outpatient R FRED [facility] [id number] Univers 15:30:00 15:30:00 GARRY ity of [facility] 2019-11-26 2019-11-26 Travel 1.2.840.1 1.2.484.500 [id number] Univers 00:00:00 00:00:00 28702.1.1 350.1.13.10 ity of 3.104.2.7 4[place].3.698 [place] .3.036152 084.8 Medica l .8 [place] 2019-06-30 2019-06-30 [facility] [id number] -20 Univers 14:20:00 14:20:00 QUENTIN [id number] itwilliam [facility] 2019-06-30 2019-06-30 Outpatient [facility] [id number] Univers 14:20:00 14:20:00 QUENTIN linton [facility] 2019-06-30 2019-06-30 Office PEDRO LUIS Lr 1.2.840.114 [id number] [facility] 08:48:19 09:28:00 Visit Holger AMBULATOR 350.1.13.21 College Y 0.2.7.2.686 of [id number] [facility] 335 e 2019-06-26 2019-06-26 [facility] 1.2.840.114 [id number] Univers 14:22:45 16:19:52 Visit Ines [facility] 350.1.13.10 i ty of [place] 4.2.7.2.686 [place] as Professio [id number] Co dical [address] Office [facility] One 2019-06-26 2019-06-26 [facility] [id number] -20 Univers 14:40:00 14:40:00 INES ity [facility] 2019-06-26 2019-06-26 Outpatient [facility] [id number] Univers 14:40:00 14:40:00 [facility] 2019-06-26 2019-06-26 Refill Fred [facility] 1.2.840.114 [id number] Univers 00:00:00 00:00:00 [facility] 350.1.13.10 it y of [place] 4.2.7.2.686 Froylan as Professio [phone] [address] Office [facility] One 2019-05-21 2019-05-21 Office PEDRO LUIS Lr 1.2.840.114 [id number] [facility] 12:35:17 13:28:22 Visit Holger AMBULATOR 350.1.13.21 College Y 0.2.7.2.686 of [id number] [place] [address] e 2019-05-21 2019-05-21 Outpatient SELINA Loredo ADMI [id number] [facility] 00:00:00 00:00:[id number] [facility] 2019-05-06 2019-05-06 Orders Doctor MADISON 1.2.840.114 [id number] 00:00:00 00:00:00 Only Unassigned, DANIELLE 350.1.13.10 ity of [place] [facility] 4.2.7.2.686 Froylan as [id number] [address] 2019-02-24 2019-02-24 Office PEDRO LUIS Lr 1.2.840.114 [id number] 14:58:57 15:50:21 Visit Holger AMBULATOR 350.1.13.21 Y 0.2.7.2.686 [id number] [facility] 2019-02-24 2019-02-24 Office PEDRO LUIS Lr 1.2.840.114 [id number] [facility] 14:58:57 15:50:21 Visit Holger AMBULATOR 350.1.13.21 College Y 0.2.7.2.686 of [id number] 2019-02-16 2019-02-16 Outpatient Sia CINTRON, [facility] [id number] [facility] 14:30:00 14:48:55 GARRY linton [facility] 2019-01-27 2019-01-27 Office PEDRO LUIS Bsas 1.2.840.114 [id number] 11:21:02 12:51:37 Visit Gueroer AMBULATOR 350.1.13.21 P Y 0.2.7.2.686 [id number] 300 2019-01-27 2019-01-27 Office PEDRO LUIS Bass 1.2.840.114 [id number] [facility] 11:21:02 12:51:37 Visit Lambert AMBULATOR 350.1.13.21 [place] P Y 0.2.7.2.686 of [id number] [facility] 300 e 2018-12-24 2018-12-24 Outpatient R FRED [facility] [id number] Univers 14:00:00 14:19:57 [facility] 2018-12-24 2018-12-24 Office Fred [facility] 1.2.840.114 [id number] Univers 13:57:01 14:19:57 Visit Garyr [facility] 350.1.13.10 it y of [place] 4.2.7.2.686 Froylan as Professio [phone] [address] Office Building One Results Test Description Test Time Test Comments Results Result [facility] e Comments XR CHEST 1 2019-11-22 No acute University of 5 intrathoracic [place] Medic al 23:21:19 abnormality.PROCEDURE [facility] : XR CHEST 1 CLINICAL INDICATION: syncope COMPARISON: None FINDINGS: The lungs are clear. No pleural effusion or pneumothorax is seen. The cardiomediastinal silhouette is normal. No acute bony abnormality. [facility], Radiant Results Inft User - 12/15/2019 6:22 PM CDTPROCEDURE: XR CHEST 1 CLINICAL INDICATION: syncope COMPARISON: NoneFINDINGS:The lungs are clear. No pleural effusion or pneumothorax is seen. The cardiomediastinal silhouette is normal. No acute bony abnormality.IMPRESSIO NNo acute intrathoracic abnormality. XR CHEST 1 2019-11-22 No acute [facility] of 5 intrathoracic [place] Medic al 23:21:19 abnormality.PROCEDURE Bra nc : XR CHEST 1 VW CLINICAL INDICATION: syncope COMPARISON: None FINDINGS: The lungs are clear. No pleural effusion or pneumothorax is seen. The cardiomediastinal silhouette is normal. No acute bony abnormality. [facility], Radiant Results Inft User - 12/15/2019 6:22 PM CDTPROCEDURE: XR CHEST 1 VWCLINICAL INDICATION: syncope COMPARISON: NoneFINDINGS:The lungs are clear. No pleural effusion or pneumothorax is seen. The cardiomediastinal silhouette is normal. No acute bony abnormality.IMPRESSIO NNo acute intrathoracic abnormality. XR CHEST 1 2019-11-22 No acute [facility] of 5 intrathoracic [place] Medic al 23:21:19 abnormality.PROCEDURE Bra nch : XR CHEST 1 VW CLINICAL INDICATION: syncope COMPARISON: None FINDINGS: The lungs are clear. No pleural effusion or pneumothorax is seen. The cardiomediastinal silhouette is normal. No acute bony abnormality. [facility], Radiant Results Inft User - 12/15/2019 6:22 PM CDTPROCEDURE: XR CHEST 1 VWCLINICAL INDICATION: syncope COMPARISON: NoneFINDINGS:The lungs are clear. No pleural effusion or pneumothorax is seen. The cardiomediastinal silhouette is normal. No acute bony abnormality.IMPRESSIO NNo acute intrathoracic abnormality. XR CHEST 1 VW 2019-11-22 No acute [facility] of 5 intrathoracic [place] Medic al 23:21:19 abnormality.PROCEDURE Bra nch : XR CHEST 1 VW CLINICAL INDICATION: syncope COMPARISON: None FINDINGS: The lungs are clear. No pleural effusion or pneumothorax is seen. The cardiomediastinal silhouette is normal. No acute bony abnormality. [facility], Radiant Results Inft User - 12/15/2019 6:22 PM CDTPROCEDURE: XR CHEST 1 VWCLINICAL INDICATION: syncope COMPARISON: NoneFINDINGS:The lungs are clear. No pleural effusion or pneumothorax is seen. The cardiomediastinal silhouette is normal. No acute bony abnormality.IMPRESSIO NNo acute intrathoracic abnormality. CBC WITH DIFF 2019-12-15 22:49:00 Test Item Value Reference Range Interpretation Comme nts WBC (test code = 6690-2) See_Comment [A utomated message] The system which [employer] nerated this result transmit aleksey reference range: 4.30 - 1 1.10 10*3/?L. The reference r ry was not used to interpr et this result as normal/abnor mal. RBC (test code = 789-8) See_Comment [Au tomated message] The system which [employer] nerated this result transmit aleksey reference range: 3.93 - 5 .25 10*6/?L. The reference r ry was not used to interpr et this result as normal/abnor mal. HGB (test code = 718-7) 11.4 g/dL 11.6-15 L HCT (test code = 4544-3) 36.0 % 35.7-45.2 MCV (test code = 787-2) 83.3 fL 80.6-95.5 MCH (test code = 785-6) 26.4 pg 25.9-32.8 MCHC (test code = 786-4) 31.7 g/dL 31.6-35.1 RDW-SD (test code = 62768-8) 40.8 fL 39-49.9 RDW-CV (test code = 788-0) 13.3 % 12-15.5 PLT (test code = 777-3) See_Comment L [Au tomated message] The system which ge nerated this result transmit aleksey reference range: 166 - 35 8 10*3/?L. The reference range was not used to interpret th is result as normal/abnormal . MPV (test code = 37851-1) 12.5 fL 9.5-12.9 NRBC/100 WBC (test code = See_Comment [ Automated message] The [id number]) system which ge nerated this result transmit aleksey reference range: 0.0 - 10 .0 /100 WBCs. The reference r ry was not used to interpr et this result as normal/abnor mal. NRBC x10^3 (test code = <0.01 See_Comment [Au tomated message] The 7137443081) system which ge nerated this result transmit aleksey reference range: 10*3/?L. The reference range was not u sed to interpret this result as normal/abnormal . GRAN MAT (NEUT) % (test code 61.7 % = 770-8) IMM GRAN % (test code = 0.30 % [id number]) LYMPH % (test code = 736-9) 25.3 % MONO % (test code = 5905-5) 10.7 % EOS % (test code = 713-8) 1.4 % BASO % (test code = 706-2) 0.6 % GRAN MAT x10^3(ANC) (test 4.08 10*3/uL 1.88-7.09 code = 8003831753) IMM GRAN x10^3 (test code = <0.03 0-0.06 8563169815) LYMPH x10^3 (test code = 1.67 10*3/uL 1.32-3.29 731-0) MONO x10^3 (test code = 0.71 10*3/uL 0.33-0.92 742-7) EOS x10^3 (test code = 0.09 10*3/uL 0.03-0.39 711-2) BASO x10^3 (test code = 0.04 10*3/uL 0.01-0.07 704-7) Lab Interpretation (test Abnormal code = 29803-5) [facility] WITH [id number] 22:49:00 Test Item Value Reference Range Interpretation Comments WBC (test code = See_Comment [Automated 6690-2) message] The sy stem which generated this result transmitted reference range : 4.30 - 11.10 10*3/?L. The reference range was not used to interpret this result as normal/abnormal . RBC (test code = See_Comment [Automated 789-8) message] The sy stem which generated this result transmitted reference range : 3.93 - 5.25 10*6/?L. The reference range was not used to interpret this result as normal/abnormal . HGB (test code = 11.4 g/dL 11.6-15 L 718-7) HCT (test code = 36.0 % 35.7-45.2 4544-3) MCV (test code = 83.3 fL 80.6-95.5 787-2) MCH (test code = 26.4 pg 25.9-32.8 785-6) MCHC (test code = 31.7 g/dL 31.6-35.1 786-4) RDW-SD (test code = 40.8 fL 39-49.9 34944-5) RDW-CV (test code = 13.3 % 12-15.5 788-0) PLT (test code = See_Comment L [Automated 777-3) message] The sy stem which generated this result transmitted reference range : 166 - 358 10*3/ ?L. The reference r ry was not used to interpret this result as normal/abnormal . MPV (test code = 12.5 fL 9.5-12.9 97122-6) NRBC/100 WBC (test See_Comment [Automat ed code = 5233354999) message] The system which generated this result transmitted reference range : 0.0 - 10.0 /100 WBCs. The refer ence range was not u sed to interpret th is result as normal/abnormal . NRBC x10^3 (test code <0.01 See_Comment [Auto mated = 6735461011) message] The s ystem which generated this result transmitted reference range : 10*3/?L. The reference range was not used to interpret this result as normal/abnormal . GRAN MAT (NEUT) % 61.7 % (test code = 770-8) IMM GRAN % (test code 0.30 % = 6370537388) LYMPH % (test code = 25.3 % 736-9) MONO % (test code = 10.7 % 5905-5) EOS % (test code = 1.4 % 713-8) BASO % (test code = 0.6 % 706-2) GRAN MAT x10^3(ANC) 4.08 10*3/uL 1.88-7.09 (test code = 7595132187) IMM GRAN x10^3 (test <0.03 0-0.06 code = 1011106334) LYMPH x10^3 (test code 1.67 10*3/uL 1.32-3.29 = 731-0) MONO x10^3 (test code 0.71 10*3/uL 0.33-0.92 = 742-7) EOS x10^3 (test code = 0.09 10*3/uL 0.03-0.39 711-2) BASO x10^3 (test code 0.04 10*3/uL 0.01-0.07 = 704-7) Lab Interpretation Abnormal (test code = 48690-7) [facility] WITH [id number] 22:49:00 Test Item Value Reference Range Interpretation Comments WBC (test code = See_Comment [Automated 5790-2) message] The sy stem which generated this result transmitted reference range : 4.30 - 11.10 10*3/?L. The reference range was not used to interpret this result as normal/abnormal . RBC (test code = See_Comment [Automated 849-8) message] The sy stem which generated this result transmitted reference range : 3.93 - 5.25 10*6/?L. The reference range was not used to interpret this result as normal/abnormal . HGB (test code = 11.4 g/dL 11.6-15 L 718-7) HCT (test code = 36.0 % 35.7-45.2 4544-3) MCV (test code = 83.3 fL 80.6-95.5 787-2) MCH (test code = 26.4 pg 25.9-32.8 785-6) MCHC (test code = 31.7 g/dL 31.6-35.1 786-4) RDW-SD (test code = 40.8 fL 39-49.9 18271-2) RDW-CV (test code = 13.3 % 12-15.5 788-0) PLT (test code = See_Comment L [Automated 777-3) message] The sy stem which generated this result transmitted reference range : 166 - 358 10*3/ ?L. The reference r ry was not used to interpret this result as normal/abnormal . MPV (test code = 12.5 fL 9.5-12.9 56630-6) NRBC/100 WBC (test See_Comment [Automat ed code = 6364479054) message] The system which generated this result transmitted reference range : 0.0 - 10.0 /100 WBCs. The refer ence range was not u sed to interpret th is result as normal/abnormal . NRBC x10^3 (test code <0.01 See_Comment [Auto mated = 8079039914) message] The s ystem which generated this result transmitted reference range : 10*3/?L. The reference range was not used to interpret this result as normal/abnormal . GRAN MAT (NEUT) % 61.7 % (test code = 770-8) IMM GRAN % (test code 0.30 % = 4548218182) LYMPH % (test code = 25.3 % 736-9) MONO % (test code = 10.7 % 5905-5) EOS % (test code = 1.4 % 713-8) BASO % (test code = 0.6 % 706-2) GRAN MAT x10^3(ANC) 4.08 10*3/uL 1.88-7.09 (test code = 1282481780) IMM GRAN x10^3 (test <0.03 0-0.06 code = 0540832403) LYMPH x10^3 (test code 1.67 10*3/uL 1.32-3.29 = 731-0) MONO x10^3 (test code 0.71 10*3/uL 0.33-0.92 = 742-7) EOS x10^3 (test code = 0.09 10*3/uL 0.03-0.39 711-2) BASO x10^3 (test code 0.04 10*3/uL 0.01-0.07 = 704-7) Lab Interpretation Abnormal (test code = 22006-0) [facility] WITH [id number] 22:49:00 Test Item Value Reference Range Interpretation Comments WBC (test code = See_Comment [Automated 8088-2) message] The sy stem which generated this result transmitted reference range : 4.30 - 11.10 10*3/?L. The reference range was not used to interpret this result as normal/abnormal . RBC (test code = See_Comment [Automated 019-8) message] The sy stem which generated this result transmitted reference range : 3.93 - 5.25 10*6/?L. The reference range was not used to interpret this result as normal/abnormal . HGB (test code = 11.4 g/dL 11.6-15 L 718-7) HCT (test code = 36.0 % 35.7-45.2 4544-3) MCV (test code = 83.3 fL 80.6-95.5 787-2) MCH (test code = 26.4 pg 25.9-32.8 785-6) MCHC (test code = 31.7 g/dL 31.6-35.1 786-4) RDW-SD (test code = 40.8 fL 39-49.9 49419-8) RDW-CV (test code = 13.3 % 12-15.5 788-0) PLT (test code = See_Comment L [Automated 777-3) message] The sy stem which generated this result transmitted reference range : 166 - 358 10*3/ ?L. The reference r ry was not used to interpret this result as normal/abnormal . MPV (test code = 12.5 fL 9.5-12.9 28237-2) NRBC/100 WBC (test See_Comment [Automat ed code = 5357846150) message] The system which generated this result transmitted reference range : 0.0 - 10.0 /100 WBCs. The refer ence range was not u sed to interpret th is result as normal/abnormal . NRBC x10^3 (test code <0.01 See_Comment [Auto mated = 8786922380) message] The s ystem which generated this result transmitted reference range : 10*3/?L. The reference range was not used to interpret this result as normal/abnormal . GRAN MAT (NEUT) % 61.7 % (test code = 770-8) IMM GRAN % (test code 0.30 % = [id number]) LYMPH % (test code = 25.3 % 736-9) MONO % (test code = 10.7 % 5905-5) EOS % (test code = 1.4 % 713-8) BASO % (test code = 0.6 % 706-2) GRAN MAT x10^3(ANC) 4.08 10*3/uL 1.88-7.09 (test code = [id number]) IMM GRAN x10^3 (test <0.03 0-0.06 code = [id number]) LYMPH x10^3 (test code 1.67 10*3/uL 1.32-3.29 = 731-0) MONO x10^3 (test code 0.71 10*3/uL 0.33-0.92 = 742-7) EOS x10^3 (test code = 0.09 10*3/uL 0.03-0.39 711-2) BASO x10^3 (test code 0.04 10*3/uL 0.01-0.07 = 704-7) Lab Interpretation Abnormal (test code = 06800-6) [id number]:40:00 Test Item Value Reference Range Interpretation Comments TROPONIN I (test <0.012 See_Comment [Automated code = [id number]) message] The system which generated this result transmitted reference range : <=0.034 ng/mL. The reference range was not used to interpr et this result as normal/abnormal . NICOLE (test code = Equal or Less than NICOLE) 0.034 ng/ml---Normal ?Note: Cardiac troponin begins to rise 3-4 hours after the onset of ischemia. Repeat in 4-6 hours if the sample was drawn within 3-4 hours of the onset of the symptom and found normal. Between 0.035 and 0.120 ng/mL--- Borderline. Questionable myocardial injury or necrosis ? ?Note: Serial measurement may be necessary to confirm or exclude the diagnosis of myocardial injury or necrosis; Clinical correlation (symptoms, EKGs, imaging studies, and others) required; Repeat in 4-6 hours if clinically indicated. ? Equal or Higher than 0.121 ng/mL---Abnormal. Myocardial Injury or Necrosis Likely ? Biotin has been reported to cause a negative bias, interpret results relative to patient's use of biotin. ? Lab Interpretation Normal (test code = 46745-8) [facility] [id number] 22:40:00 Test Item Value Reference Range Interpretation Comments TROPONIN I (test <0.012 See_Comment [Automated code = 7136754159) message] The system which generated this result transmitted reference range : <=0.034 ng/mL. The reference range was not used to interpr et this result as normal/abnormal . NICOLE (test code = Equal or Less than NICOLE) 0.034 ng/ml---Normal ?Note: Cardiac troponin begins to rise 3-4 hours after the onset of ischemia. Repeat in 4-6 hours if the sample was drawn within 3-4 hours of the onset of the symptom and found normal. Between 0.035 and 0.120 ng/mL--- Borderline. Questionable myocardial injury or necrosis ? ?Note: Serial measurement may be necessary to confirm or exclude the diagnosis of myocardial injury or necrosis; Clinical correlation (symptoms, EKGs, imaging studies, and others) required; Repeat in 4-6 hours if clinically indicated. ? Equal or Higher than 0.121 ng/mL---Abnormal. Myocardial Injury or Necrosis Likely ? Biotin has been reported to cause a negative bias, interpret results relative to patient's use of biotin. ? Lab Interpretation Normal (test code = 77775-5) [facility] [id number] 22:40:00 Test Item Value Reference Range Interpretation Comments TROPONIN I (test <0.012 See_Comment [Automated code = [id number]) message] The system which generated this result transmitted reference range : <=0.034 ng/mL. The reference range was not used to interpr et this result as normal/abnormal . NICOLE (test code = Equal or Less than NICOLE) 0.034 ng/ml---Normal ?Note: Cardiac troponin begins to rise 3-4 hours after the onset of ischemia. Repeat in 4-6 hours if the sample was drawn within 3-4 hours of the onset of the symptom and found normal. Between 0.035 and 0.120 ng/mL--- Borderline. Questionable myocardial injury or necrosis ? ?Note: Serial measurement may be necessary to confirm or exclude the diagnosis of myocardial injury or necrosis; Clinical correlation (symptoms, EKGs, imaging studies, and others) required; Repeat in 4-6 hours if clinically indicated. ? Equal or Higher than 0.121 ng/mL---Abnormal. Myocardial Injury or Necrosis Likely ? Biotin has been reported to cause a negative bias, interpret results relative to patient's use of biotin. ? Lab Interpretation Normal (test code = 50675-4) [facility] [id number] 22:40:00 Test Item Value Reference Range Interpretation Comments TROPONIN I (test <0.012 See_Comment [Automated code = [id number]) message] The system which generated this result transmitted reference range : <=0.034 ng/mL. The reference range was not used to interpr et this result as normal/abnormal . NICOLE (test code = Equal or Less than NICOLE) 0.034 ng/ml---Normal ?Note: Cardiac troponin begins to rise 3-4 hours after the onset of ischemia. Repeat in 4-6 hours if the sample was drawn within 3-4 hours of the onset of the symptom and found normal. Between 0.035 and 0.120 ng/mL--- Borderline. Questionable myocardial injury or necrosis ? ?Note: Serial measurement may be necessary to confirm or exclude the diagnosis of myocardial injury or necrosis; Clinical correlation (symptoms, EKGs, imaging studies, and others) required; Repeat in 4-6 hours if clinically indicated. ? Equal or Higher than 0.121 ng/mL---Abnormal. Myocardial Injury or Necrosis Likely ? Biotin has been reported to cause a negative bias, interpret results relative to patient's use of biotin. ? Lab Interpretation Normal (test code = 58279-5) [facility]00 Test Item Value Reference Range Interpretation Comments APPEARANCE (test code = Clear Clear 4965226035) COLOR (test code = Yellow Yellow 9866345773) PH (test code = 4.8-8.0 3561661532) SP GRAVITY (test code = >=1.030 1.003-1.030 1065073424) GLU U QUAL (test code = Negative Negative 1120194261) BLOOD (test code = Trace Negative A 3219765053) KETONES (test code = Trace Negative A 6255788014) PROTEIN (test code = 100 mg/dL Negative A 2887-8) UROBILIN (test code = 0.2 mg/dL See_Comment [Auto mated message] 9930656494) The system [employer] generated this result transmit aleksey reference range : 0-1.0 mg/dL. Th e reference range was not used to interpret this result as normal/abnormal . BILIRUBIN (test code = Negative Negative 0156883337) NITRITE (test code = Negative Negative 1350159431) LEUK TARIQ (test code = Negative Negative 1739483795) RBC/HPF (test code = See_Comment [Autom ated message] 9561434694) The system [employer] generated this result transmit aleksey reference range : 0 - 3 HPF. The refe rence range was not u sed to interpret th is result as normal/abnormal . WBC/HPF (test code = See_Comment [Autom ated message] 9383400854) The system [employer] generated this result transmit aleksey reference range : 0 - 5 HPF. The refe rence range was not u sed to interpret th is result as normal/abnormal . BACTERIA (test code = Few Negative A 5302623519) MUCOUS (test code = Marked Negative LPF A 4448543996) SQ EPITH (test code = HPF 0487645918) HYAL CAST (test code = See_Comment [Aut omated message] 5374362959) The system [employer] generated this result transmit aleksey reference range : <=2 LPF. The refere nce range was not u sed to interpret th is result as normal/abnormal . Lab Interpretation (test Abnormal code = 96379-6) [facility]00 Test Item Value Reference Range Interpretation Comments APPEARANCE (test code = Clear Clear 6029734412) COLOR (test code = Yellow Yellow 0351672853) PH (test code = 4.8-8.0 9098146901) SP GRAVITY (test code = >=1.030 1.003-1.030 0694763597) GLU U QUAL (test code = Negative Negative 1288860253) BLOOD (test code = Trace Negative A 8841297816) KETONES (test code = Trace Negative A 9609655766) PROTEIN (test code = 100 mg/dL Negative A 2887-8) UROBILIN (test code = 0.2 mg/dL See_Comment [Auto mated message] 8250503448) The system [employer] generated this result transmit aleksey reference range : 0-1.0 mg/dL. Th e reference range was not used to interpret this result as normal/abnormal . BILIRUBIN (test code = Negative Negative 4912369198) NITRITE (test code = Negative Negative 5585463752) LEUK TARIQ (test code = Negative Negative 1957819580) RBC/HPF (test code = See_Comment [Autom ated message] 5615378076) The system [employer] generated this result transmit aleksey reference range : 0 - 3 HPF. The refe rence range was not u sed to interpret th is result as normal/abnormal . WBC/HPF (test code = See_Comment [Autom ated message] 2616718804) The system [employer] generated this result transmit aleksey reference range : 0 - 5 HPF. The refe rence range was not u sed to interpret th is result as normal/abnormal . BACTERIA (test code = Few Negative A 6326406957) MUCOUS (test code = Marked Negative LPF A 4973689228) SQ EPITH (test code = HPF 3835146654) HYAL CAST (test code = See_Comment [Aut omated message] 1904334233) The system [employer] generated this result transmit aleksey reference range : <=2 LPF. The refere nce range was not u sed to interpret th is result as normal/abnormal . Lab Interpretation (test Abnormal code = 88941-9) [facility] 22:[facility]:00 Test Item Value Reference Range Interpretation Comments APPEARANCE (test code = Clear Clear 0493613271) COLOR (test code = Yellow Yellow 5092557646) PH (test code = 4.8-8.0 5761410188) SP GRAVITY (test code = >=1.030 1.003-1.030 6865211437) GLU U QUAL (test code = Negative Negative 4934809259) BLOOD (test code = Trace Negative A 3730675239) KETONES (test code = Trace Negative A 6139873578) PROTEIN (test code = 100 mg/dL Negative A 2887-8) UROBILIN (test code = 0.2 mg/dL See_Comment [Auto mated message] 6033129968) The system [employer] generated this result transmit aleksey reference range : 0-1.0 mg/dL. Th e reference range was not used to interpret this result as normal/abnormal . BILIRUBIN (test code = Negative Negative 0913737730) NITRITE (test code = Negative Negative 3961441807) LEUK TARIQ (test code = Negative Negative 7357837072) RBC/HPF (test code = See_Comment [Autom ated message] 8420911895) The system [employer] generated this result transmit aleksey reference range : 0 - 3 HPF. The refe rence range was not u sed to interpret th is result as normal/abnormal . WBC/HPF (test code = See_Comment [Autom ated message] 5270687033) The system [employer] generated this result transmit aleksey reference range : 0 - 5 HPF. The refe rence range was not u sed to interpret th is result as normal/abnormal . BACTERIA (test code = Few Negative A 0997989708) MUCOUS (test code = Marked Negative LPF A 9393540739) SQ EPITH (test code = HPF 5832569445) HYAL CAST (test code = See_Comment [Aut omated message] 4479449970) The system [employer] generated this result transmit aleksey reference range : <=2 LPF. The refere nce range was not u sed to interpret th is result as normal/abnormal . Lab Interpretation (test Abnormal code = 02177-8) [facility] 22:36:00 Test Item Value Reference Range Interpretation Comments APPEARANCE (test code = Clear Clear 2853294722) COLOR (test code = Yellow Yellow 1514408763) PH (test code = 4.8-8.0 5955123948) SP GRAVITY (test code = >=1.030 1.003-1.030 6731991956) GLU U QUAL (test code = Negative Negative 1125852938) BLOOD (test code = Trace Negative A 6874543335) KETONES (test code = Trace Negative A 4255548401) PROTEIN (test code = 100 mg/dL Negative A 2887-8) UROBILIN (test code = 0.2 mg/dL See_Comment [Auto mated message] 3220432369) The system [employer] generated this result transmit aleksey reference range : 0-1.0 mg/dL. Th e reference range was not used to interpret this result as normal/abnormal . BILIRUBIN (test code = Negative Negative 0479352537) NITRITE (test code = Negative Negative 9463584589) LEUK TARIQ (test code = Negative Negative 0496530764) RBC/HPF (test code = See_Comment [Autom ated message] 1619077577) The system [employer] generated this result transmit aleksey reference range : 0 - 3 HPF. The refe rence range was not u sed to interpret th is result as normal/abnormal . WBC/HPF (test code = See_Comment [Autom ated message] 7455446213) The system [employer] generated this result transmit aleksey reference range : 0 - 5 HPF. The refe rence range was not u sed to interpret th is result as normal/abnormal . BACTERIA (test code = Few Negative A 7622538569) MUCOUS (test code = Marked Negative LPF A 1036054343) SQ EPITH (test code = HPF 6233065572) HYAL CAST (test code = See_Comment [Aut omated message] 2337151987) The system [employer] generated this result transmit aleksey reference range : <=2 LPF. The refere nce range was not u sed to interpret th is result as normal/abnormal . Lab Interpretation (test Abnormal code = 35307-9) [facility] METABOLIC PANEL (NA, K, CL, CO2, GLUCOSE, BUN, CREATININE, CA)2019-12-15 22:28:00 Test Item Value Reference Range Interpretation Comments NA (test code = 137 mmol/L 135-145 2918159457) K (test code = 4.4 mmol/L 3.5-5 0426847664) CL (test code = 108 mmol/L 98-108 8096544371) CO2 TOTAL (test code = 24 mmol/L 23-31 9455836966) AGAP (test code = 2-16 3976395335) BUN (test code = 10 mg/dL 7-23 5626486909) GLUCOSE (test code = 98 mg/dL 70-110 4608659924) CREATININE (test code 0.63 mg/dL 0.5-1.04 = 8087250554) CALCIUM (test code = 9.2 mg/dL 8.6-10.6 7695811103) eGFR Calculation mL/min/1.73m2 (Non-) (test code = 1608263862) eGFR Calculation mL/min/1.73m2 () (test code = 5575179667) NICOLE (test code = NICOLE) Association of Glomerular Filtration Rate (GFR) and Staging of Kidney Disease* + -+ + ---+| GFR (mL/min/1.73 m2) ?| With Kidney Damage ?| ?Without Kidney Damage+ -------+ ------+ ---------+| ?>90 ?| ?Stage one ?| ? Normal ?+ --+ -+ ----+| ?60-89 ?| ?Stage two ?| ? Decreased GFR ? + -+ + ---+| ?30-59 ?| ?Stage three ?| ? Stage three ? + -+ + ---+| ?15-29 ?| ?Stage four ? | ? Stage four ?+ --+ -+ ----+| ?<15 (or dialysis) ? ?| ?Stage five ? | ? Stage five ?+ --+ -+ ----+ *Each stage assumes the associated GFR level has been in effect for at least three months. ?Stages 1 to 5, with or without kidney disease, indicate chronic kidney disease. Notes: Determination of stages one and two (with eGFR >59mL/min/1.73 m2) requires estimation of kidney damage for at least three months as defined by structural or functional abnormalities of the kidney, manifested by either:Pathological abnormalities or Markers of kidney damage (including abnormalities in the composition of the blood or urine or abnormalities in imaging tests). [facility] (NA, K, CL, CO2, GLUCOSE, BUN, CREATININE, CA)2019-12-15 22:28:00 Test Item Value Reference Range Interpretation Comments NA (test code = 137 mmol/L 135-145 7408659810) K (test code = 4.4 mmol/L 3.5-5 2755414759) CL (test code = 108 mmol/L 98-108 1942574317) CO2 TOTAL (test code = 24 mmol/L 23-31 2568211166) AGAP (test code = 2-16 1049384622) BUN (test code = 10 mg/dL 7-23 6760394287) GLUCOSE (test code = 98 mg/dL 70-110 0534627952) CREATININE (test code 0.63 mg/dL 0.5-1.04 = 3622321160) CALCIUM (test code = 9.2 mg/dL 8.6-10.6 2060079742) eGFR Calculation mL/min/1.73m2 (Non-) (test code = 3437870790) eGFR Calculation mL/min/1.73m2 () (test code = 7800938922) NICOLE (test code = NICOLE) Association of Glomerular Filtration Rate (GFR) and Staging of Kidney Disease* + -+ + ---+| GFR (mL/min/1.73 m2) ?| With Kidney Damage ?| ?Without Kidney Damage+ -------+ ------+ ---------+| ?>90 ?| ?Stage one ?| ? Normal ?+ --+ -+ ----+| ?60-89 ?| ?Stage two ?| ? Decreased GFR ? + -+ + ---+| ?30-59 ?| ?Stage three ?| ? Stage three ? + -+ + ---+| ?15-29 ?| ?Stage four ? | ? Stage four ?+ --+ -+ ----+| ?<15 (or dialysis) ? ?| ?Stage five ? | ? Stage five ?+ --+ -+ ----+ *Each stage assumes the associated GFR level has been in effect for at least three months. ?Stages 1 to 5, with or without kidney disease, indicate chronic kidney disease. Notes: Determination of stages one and two (with eGFR >59mL/min/1.73 m2) requires estimation of kidney damage for at least three months as defined by structural or functional abnormalities of the kidney, manifested by either:Pathological abnormalities or Markers of kidney damage (including abnormalities in the composition of the blood or urine or abnormalities in imaging tests). [facility] (NA, K, CL, CO2, GLUCOSE, BUN, CREATININE, CA)2019-12-15 22:28:00 Test Item Value Reference Range Interpretation Comments NA (test code = 137 mmol/L 135-145 2198975806) K (test code = 4.4 mmol/L 3.5-5 3971444245) CL (test code = 108 mmol/L 98-108 8749877532) CO2 TOTAL (test code = 24 mmol/L 23-31 3013683961) AGAP (test code = 2-16 5259851090) BUN (test code = 10 mg/dL 7-23 7855527461) GLUCOSE (test code = 98 mg/dL 70-110 1039386503) CREATININE (test code 0.63 mg/dL 0.5-1.04 = 6598386658) CALCIUM (test code = 9.2 mg/dL 8.6-10.6 4658216010) eGFR Calculation mL/min/1.73m2 (Non-) (test code = 6080869754) eGFR Calculation mL/min/1.73m2 () (test code = 0891591069) NICOLE (test code = NICOLE) Association of Glomerular Filtration Rate (GFR) and Staging of Kidney Disease* + -+ + ---+| GFR (mL/min/1.73 m2) ?| With Kidney Damage ?| ?Without Kidney Damage+ -------+ ------+ ---------+| ?>90 ?| ?Stage one ?| ? Normal ?+ --+ -+ ----+| ?60-89 ?| ?Stage two ?| ? Decreased GFR ? + -+ + ---+| ?30-59 ?| ?Stage three ?| ? Stage three ? + -+ + ---+| ?15-29 ?| ?Stage four ? | ? Stage four ?+ --+ -+ ----+| ?<15 (or dialysis) ? ?| ?Stage five ? | ? Stage five ?+ --+ -+ ----+ *Each stage assumes the associated GFR level has been in effect for at least three months. ?Stages 1 to 5, with or without kidney disease, indicate chronic kidney disease. Notes: Determination of stages one and two (with eGFR >59mL/min/1.73 m2) requires estimation of kidney damage for at least three months as defined by structural or functional abnormalities of the kidney, manifested by either:Pathological abnormalities or Markers of kidney damage (including abnormalities in the composition of the blood or urine or abnormalities in imaging tests). [facility] METABOLIC PANEL (NA, K, CL, CO2, GLUCOSE, BUN, CREATININE, CA)2019-12-15 22:28:00 Test Item Value Reference Range Interpretation Comments NA (test code = 137 mmol/L 135-145 2375982953) K (test code = 4.4 mmol/L 3.5-5 5232676102) CL (test code = 108 mmol/L 98-108 5308552063) CO2 TOTAL (test code = 24 mmol/L 23-31 9753169095) AGAP (test code = 2-16 0801193493) BUN (test code = 10 mg/dL 7-23 2534504327) GLUCOSE (test code = 98 mg/dL 70-110 9945578646) CREATININE (test code 0.63 mg/dL 0.5-1.04 = 3060321798) CALCIUM (test code = 9.2 mg/dL 8.6-10.6 6106337935) eGFR Calculation mL/min/1.73m2 (Non-) (test code = 6234963786) eGFR Calculation mL/min/1.73m2 () (test code = 0431729386) NICOLE (test code = NICOLE) Association of Glomerular Filtration Rate (GFR) and Staging of Kidney Disease* + -+ + ---+| GFR (mL/min/1.73 m2) ?| With Kidney Damage ?| ?Without Kidney Damage+ -------+ ------+ ---------+| ?>90 ?| ?Stage one ?| ? Normal ?+ --+ -+ ----+| ?60-89 ?| ?Stage two ?| ? Decreased GFR ? + -+ + ---+| ?30-59 ?| ?Stage three ?| ? Stage three ? + -+ + ---+| ?15-29 ?| ?Stage four ? | ? Stage four ?+ --+ -+ ----+| ?<15 (or dialysis) ? ?| ?Stage five ? | ? Stage five ?+ --+ -+ ----+ *Each stage assumes the associated GFR level has been in effect for at least three months. ?Stages 1 to 5, with or without kidney disease, indicate chronic kidney disease. Notes: Determination of stages one and two (with eGFR >59mL/min/1.73 m2) requires estimation of kidney damage for at least three months as defined by structural or functional abnormalities of the kidney, manifested by either:Pathological abnormalities or Markers of kidney damage (including abnormalities in the composition of the blood or urine or abnormalities in imaging tests). [facility] [id number] 22:16:10 No acute intracranial abnormality. No acute fracture or traumatic malalignment of the cervical spine.EXAM: CT HEAD WO CONTRAST, CT CERVICAL SPINE WO CONTRAST HISTORY: Head trauma, headache TECHNIQUE:COMPARISON: None. FINDINGS: CT HEAD The ventricles and sulci are normal in caliber and configuration. Nohydrocephalus, midline shift or pathological extra-axial fluid collectionis present. The basal cisterns are unremarkable. There is no acute intracranial hemorrhage or significant mass effect. Noparenchymal attenuation abnormality. The paz-white matter differentiationis preserved. The mastoid air cells and paranasal air sinuses are clear. The calvariumand central skull base are unremarkable. CT CERVICAL SPINE Vertebral bodies are normal in height and alignment. No acute fracture orsubluxation. Normal alignment of atlantoaxial joint and craniocervical junction. Disc spaces are preserved. The prevertebral soft tissues are unremarkable. The visualized lungs are clear. [facility], Radiant Results Inft - 12/15/2019 5:17 PM CDTEXAM: CT HEAD WO CONTRAST, CT CERVICAL SPINE WO CONTRASTHISTORY: Head trauma, headache TECHNIQUE:COMPARISON: None.FINDINGS: CT HEADThe ventricles and sulci are normal in caliber and configuration. Nohydrocephalus, midline shift or pathological extra-axial fluid collectionis present. The basal cisterns are unremarkable.There is no acute intracranial hemorrhage or significant mass effect. Noparenchymal attenuation abnormality. The paz-white matter differentiationis preserved.The mastoid air cells and paranasal air sinuses are clear. The calvariumand central skull base are unremarkable.CT CERVICAL SPINEVertebral bodies are normal in height and alignment. No acute fracture orsubluxation.Normal alignment of atlantoaxial joint and craniocervical junction.Disc spaces are preserved.The prevertebral soft tissues are unremarkable.The visualized lungs are clear.IMPRESSIONNo acute intracranial abnormality.No acute fracture or traumatic malalignment of the cervical spine.[facility] 2019-12-15 22:16:10 No acute intracranial abnormality. No acute fracture or traumatic malalignment of the cervical spine.EXAM: CT HEAD WO CONTRAST, CT CERVICAL SPINE WO CONTRAST HISTORY: Head trauma, headache TECHNIQUE:COMPARISON: None. FINDINGS: CT HEAD The ventricles and sulci are normal in caliber and configuration. Nohydrocephalus, midline shift or pathological extra-axial fluid collectionis present. The basal cisterns are unremarkable. There is no acute intracranial hemorrhage or significant mass effect. Noparenchymal attenuation abnormality. The paz-white matter differentiationis preserved. The mastoid air cells and paranasal air sinuses are clear. The calvariumand central skull base are unremarkable. CT CERVICAL SPINE Vertebral bodies are normal in height and alignment. No acute fracture orsubluxation. Normal alignment of atlantoaxial joint and craniocervical junction. Disc spaces are preserved. The prevertebral soft tissues are unremarkable. The visualized lungs are clear. [facility], Radiant Results Inft 12/15/2019 5:17 PM CDTEXAM: CT HEAD WO CONTRAST, CT CERVICAL SPINE WO CONTRASTHISTORY: Head trauma, headache TECHNIQUE:COMPARISON: None.FINDINGS: CT HEADThe ventricles and sulci are normal in caliber and configuration. Nohydrocephalus, midline shift or pathological extra-axial fluid collectionis present. The basal cisterns are unremarkable.There is no acute intracranial hemorrhage or significant mass effect. Noparenchymal attenuation abnormality. The paz-white matter differentiationis preserved.The mastoid air cells and paranasal air sinuses are clear. The calvariumand central skull base are unremarkable.CT CERVICAL SPINEVertebral bodies are normal in height and alignment. No acute fracture orsubluxation.Normal alignment of atlantoaxial joint and craniocervical junction.Disc spaces are preserved.The prevertebral soft tissues are unremarkable.The visualized lungs are clear.IMPRESSIONNo acute intracranial abnormality.No acute fracture or traumatic malalignment of the cervical spine.[facility] 2019-12-15 22:16:10 No acute intracranial abnormality. No acute fracture or traumatic malalignment of the cervical spine.EXAM: CT HEAD WO CONTRAST, CT CERVICAL SPINE WO CONTRAST HISTORY: Head trauma, headache TECHNIQUE:COMPARISON: None. FINDINGS: CT HEAD The ventricles and sulci are normal in caliber and configuration. Nohydrocephalus, midline shift or pathological extra-axial fluid collectionis present. The basal cisterns are unremarkable. There is no acute intracranial hemorrhage or significant mass effect. Noparenchymal attenuation abnormality. The paz-white matter differentiationis preserved. The mastoid air cells and paranasal air sinuses are clear. The calvariumand central skull base are unremarkable. CT CERVICAL SPINE Vertebral bodies are normal in height and alignment. No acute fracture orsubluxation. Normal alignment of atlantoaxial joint and craniocervical junction. Disc spaces are preserved. The prevertebral soft tissues are unremarkable. The visualized lungs are clear. [facility], Radiant Results Inft User - 12/15/2019 5:17 PM CDTEXAM: CT HEAD WO CONTRAST, CT CERVICAL SPINE WO CONTRASTHISTORY: Head trauma, headache TECHNIQUE:COMPARISON: None.FINDINGS: CT HEADThe ventricles and sulci are normal in caliber and configuration. Nohydrocephalus, midline shift or pathological extra-axial fluid collectionis present. The basal cisterns are unremarkable.There is no acute intracranial hemorrhage or significant mass effect. Noparenchymal attenuation abnormality. The paz-white matter differentiationis preserved.The mastoid air cells and paranasal air sinuses are clear. The calvariumand central skull base are unremarkable.CT CERVICAL SPINEVertebral bodies are normal in height and alignment. No acute fracture orsubluxation.Normal alignment of atlantoaxial joint and craniocervical junction.Disc spaces are preserved.The prevertebral soft tissues are unremarkable.The visualized lungs are clear.IMPRESSIONNo acute intracranial abnormality.No acute fracture or traumatic malalignment of the cervical spine.[facility] [id number] 22:16:10 No acute intracranial abnormality. No acute fracture or traumatic malalignment of the cervical spine.EXAM: CT HEAD WO CONTRAST, CT CERVICAL SPINE WO CONTRAST HISTORY: Head trauma, headache TECHNIQUE:COMPARISON: None. FINDINGS: CT HEAD The ventricles and sulci are normal in caliber and configuration. Nohydrocephalus, midline shift or pathological extra-axial fluid collectionis present. The basal cisterns are unremarkable. There is no acute intracranial hemorrhage or significant mass effect. Noparenchymal attenuation abnormality. The paz-white matter differentiationis preserved. The mastoid air cells and paranasal air sinuses are clear. The calvariumand central skull base are unremarkable. CT CERVICAL SPINE Vertebral bodies are normal in height and alignment. No acute fracture orsubluxation. Normal alignment of atlantoaxial joint and craniocervical junction. Disc spaces are preserved. The prevertebral soft tissues are unremarkable. The visualized lungs are clear. [facility], Radiant Results Inft User - 12/15/2019 5:17 PM CDTEXAM: CT HEAD WO CONTRAST, CT CERVICAL SPINE WO CONTRASTHISTORY: Head trauma, headache TECHNIQUE:COMPARISON: None.FINDINGS: CT HEADThe ventricles and sulci are normal in caliber and configuration. Nohydrocephalus, midline shift or pathological extra-axial fluid collectionis present. The basal cisterns are unremarkable.There is no acute intracranial hemorrhage or significant mass effect. Noparenchymal attenuation abnormality. The paz-white matter differentiationis preserved.The mastoid air cells and paranasal air sinuses are clear. The calvariumand central skull base are unremarkable.CT CERVICAL SPINEVertebral bodies are normal in height and alignment. No acute fracture orsubluxation.Normal alignment of atlantoaxial joint and craniocervical junction.Disc spaces are preserved.The prevertebral soft tissues are unremarkable.The visualized lungs are clear.IMPRESSIONNo acute intracranial abnormality.No acute fracture or traumatic malalignment of the cervical spine.[facility]AST 2019-12-15 22:16:10 No acute intracranial abnormality. No acute fracture or traumatic malalignment of the cervical spine.EXAM: CT HEAD WO CONTRAST, CT CERVICAL SPINE WO CONTRAST HISTORY: Head trauma, headache TECHNIQUE:COMPARISON: None. FINDINGS: CT HEAD The ventricles and sulci are normal in caliber and configuration. Nohydrocephalus, midline shift or pathological extra-axial fluid collectionis present. The basal cisterns are unremarkable. There is no acute intracranial hemorrhage or significant mass effect. Noparenchymal attenuation abnormality. The paz-white matter differentiationis preserved. The mastoid air cells and paranasal air sinuses are clear. The calvariumand central skull base are unremarkable. CT CERVICAL SPINE Vertebral bodies are normal in height and alignment. No acute fracture orsubluxation. Normal alignment of atlantoaxial joint and craniocervical junction. Disc spaces are preserved. The prevertebral soft tissues are unremarkable. The visualized lungs are clear. [facility], Radiant Results Inft User - 12/15/2019 5:17 PM CDTEXAM: CT HEAD WO CONTRAST, CT CERVICAL SPINE WO CONTRASTHISTORY: Head trauma, headache TECHNIQUE:COMPARISON: None.FINDINGS: CT HEADThe ventricles and sulci are normal in caliber and configuration. Nohydrocephalus, midline shift or pathological extra-axial fluid collectionis present. The basal cisterns are unremarkable.There is no acute intracranial hemorrhage or significant mass effect. Noparenchymal attenuation abnormality. The paz-white matter differentiationis preserved.The mastoid air cells and paranasal air sinuses are clear. The calvariumand central skull base are unremarkable.CT CERVICAL SPINEVertebral bodies are normal in height and alignment. No acute fracture orsubluxation.Normal alignment of atlantoaxial joint and craniocervical junction.Disc spaces are preserved.The prevertebral soft tissues are unremarkable.The visualized lungs are clear.IMPRESSIONNo acute intracranial abnormality.No acute fracture or traumatic malalignment of the cervical spine.[facility] WO [id number] 22:16:10 No acute intracranial abnormality. No acute fracture or traumatic malalignment of the cervical spine.EXAM: CT HEAD WO CONTRAST, CT CERVICAL SPINE WO CONTRAST HISTORY: Head trauma, headache TECHNIQUE:COMPARISON: None. FINDINGS: CT HEAD The ventricles and sulci are normal in caliber and configuration. Nohydrocephalus, midline shift or pathological extra-axial fluid collectionis present. The basal cisterns are unremarkable. There is no acute intracranial hemorrhage or significant mass effect. Noparenchymal attenuation abnormality. The paz-white matter differentiationis preserved. The mastoid air cells and paranasal air sinuses are clear. The calvariumand central skull base are unremarkable. CT CERVICAL SPINE Vertebral bodies are normal in height and alignment. No acute fracture orsubluxation. Normal alignment of atlantoaxial joint and craniocervical junction. Disc spaces are preserved. The prevertebral soft tissues are unremarkable. The visualized lungs are clear. [facility], Radiant Results Inft 12/15/2019 5:17 PM CDTEXAM: CT HEAD WO CONTRAST, CT CERVICAL SPINE WO CONTRASTHISTORY: Head trauma, headache TECHNIQUE:COMPARISON: None.FINDINGS: CT HEADThe ventricles and sulci are normal in caliber and configuration. Nohydrocephalus, midline shift or pathological extra-axial fluid collectionis present. The basal cisterns are unremarkable.There is no acute intracranial hemorrhage or significant mass effect. Noparenchymal attenuation abnormality. The paz-white matter differentiationis preserved.The mastoid air cells and paranasal air sinuses are clear. The calvariumand central skull base are unremarkable.CT CERVICAL SPINEVertebral bodies are normal in height and alignment. No acute fracture orsubluxation.Normal alignment of atlantoaxial joint and craniocervical junction.Disc spaces are preserved.The prevertebral soft tissues are unremarkable.The visualized lungs are clear.IMPRESSIONNo acute intracranial abnormality.No acute fracture or traumatic malalignment of the cervical spine.[facility] CERVICAL SPINE WO CONTRAST 2019-12-15 22:16:10 No acute intracranial abnormality. No acute fracture or traumatic malalignment of the cervical spine.EXAM: CT HEAD WO CONTRAST, CT CERVICAL SPINE WO CONTRAST HISTORY: Head trauma, headache TECHNIQUE:COMPARISON: None. FINDINGS: CT HEAD The ventricles and sulci are normal in caliber and configuration. Nohydrocephalus, midline shift or pathological extra-axial fluid collectionis present. The basal cisterns are unremarkable. There is no acute intracranial hemorrhage or significant mass effect. Noparenchymal attenuation abnormality. The paz-white matter differentiationis preserved. The mastoid air cells and paranasal air sinuses are clear. The calvariumand central skull base are unremarkable. CT CERVICAL SPINE Vertebral bodies are normal in height and alignment. No acute fracture orsubluxation. Normal alignment of atlantoaxial joint and craniocervical junction. Disc spaces are preserved. The prevertebral soft tissues are unremarkable. The visualized lungs are clear. [facility], Radiant Results Inft User - 12/15/2019 5:17 PM CDTEXAM: CT HEAD WO CONTRAST, CT CERVICAL SPINE WO CONTRASTHISTORY: Head trauma, headache TECHNIQUE:COMPARISON: None.FINDINGS: CT HEADThe ventricles and sulci are normal in caliber and configuration. Nohydrocephalus, midline shift or pathological extra-axial fluid collectionis present. The basal cisterns are unremarkable.There is no acute intracranial hemorrhage or significant mass effect. Noparenchymal attenuation abnormality. The paz-white matter differentiationis preserved.The mastoid air cells and paranasal air sinuses are clear. The calvariumand central skull base are unremarkable.CT CERVICAL SPINEVertebral bodies are normal in height and alignment. No acute fracture orsubluxation.Normal alignment of atlantoaxial joint and craniocervical junction.Disc spaces are preserved.The prevertebral soft tissues are unremarkable.The visualized lungs are clear.IMPRESSIONNo acute intracranial abnormality.No acute fracture or traumatic malalignment of the cervical spine.[facility] WO [id number] 22:16:10 No acute intracranial abnormality. No acute fracture or traumatic malalignment of the cervical spine.EXAM: CT HEAD WO CONTRAST, CT CERVICAL SPINE WO CONTRAST HISTORY: Head trauma, headache TECHNIQUE:COMPARISON: None. FINDINGS: CT HEAD The ventricles and sulci are normal in caliber and configuration. Nohydrocephalus, midline shift or pathological extra-axial fluid collectionis present. The basal cisterns are unremarkable. There is no acute intracranial hemorrhage or significant mass effect. Noparenchymal attenuation abnormality. The paz-white matter differentiationis preserved. The mastoid air cells and paranasal air sinuses are clear. The calvariumand central skull base are unremarkable. CT CERVICAL SPINE Vertebral bodies are normal in height and alignment. No acute fracture orsubluxation. Normal alignment of atlantoaxial joint and craniocervical junction. Disc spaces are preserved. The prevertebral soft tissues are unremarkable. The visualized lungs are clear. [facility], Radiant Results Inft User - 12/15/2019 5:17 PM CDTEXAM: CT HEAD WO CONTRAST, CT CERVICAL SPINE WO CONTRASTHISTORY: Head trauma, headache TECHNIQUE:COMPARISON: None.FINDINGS: CT HEADThe ventricles and sulci are normal in caliber and configuration. Nohydrocephalus, midline shift or pathological extra-axial fluid collectionis present. The basal cisterns are unremarkable.There is no acute intracranial hemorrhage or significant mass effect. Noparenchymal attenuation abnormality. The paz-white matter differentiationis preserved.The mastoid air cells and paranasal air sinuses are clear. The calvariumand central skull base are unremarkable.CT CERVICAL SPINEVertebral bodies are normal in height and alignment. No acute fracture orsubluxation.Normal alignment of atlantoaxial joint and craniocervical junction.Disc spaces are preserved.The prevertebral soft tissues are unremarkable.The visualized lungs are clear.IMPRESSIONNo acute intracranial abnormality.No acute fracture or traumatic malalignment of the cervical spine.[facility] FLU A AND B (MOLECULAR) 2019-06-26 22:38:00 Test Item Value Reference Range Interpretation Comments POCT INFLUENZA A (test code = 3840) neg Negative - Negativ e POCT INFLUENZA B (test code = 3841) pos Negative - Negativ e [facility] FLU A AND B (MOLECULAR)2019-06-26 22:38:00 Test Item Value Reference Range Interpretation Comments POCT INFLUENZA A (test code = 3840) neg Negative - Negativ e POCT INFLUENZA B (test code = 3841) pos Negative - Negativ e [facility] GRP A STREP (MOLECULAR)2019-06-26 22:37:00 Test Item Value Reference Range Interpretation Comments POCT GP A STREP (test code = neg Negative - Negative 17195-2) [facility]2019-06-26 22:37:00 Test Item Value Reference Range Interpretation Comments POCT GP A STREP (test code = neg Negative - Negative 30436-9) [facility]ST 2 [id number] 10:25:00 Patient Name: PAM EASTON Unit No: [id number] EXAMS: CPT CODE: [id number] XR CHEST 2 V 67570 EXAM: - XR CHEST 2 V LOCATION: C3 HISTORY: M32.10 COUGH COMPARISON: 05/29/18 FINDINGS: 2 views of the chest. No indwelling lines or tubes. No pneumothorax. The lungs are clear without significant effusions. The mediastinal contours are unremarkable/unchanged.The mediastinal contours are unremarkable. No acute osseous findings are present. IMPRESSION: No acute cardiopulmonary abnormality. at 1025 Reported and signed by: Tera Chaudhry MD CC: Mike Chu Technologist: Halie Martinez, RT(R)(M) Transcrpt Date/Tm/Trnsp: 05/21/2019 (1025) t.SDR.HV2 Orig Print D/T: S: 05/21/2019 (1028) [facility] NAME: PAM EASTON [id number] [facility] [address] PHYS: Mike Meléndez [place] [address] : 2000 AGE: 18 SEX: F LOC: Z.ZRAD PHONE #: [phone] EXAM DATE: 05/21/2019 STATUS: REG CLI FAX #: [phone] RADIOLOGY NO: PAGE 1 Signed ReportTISSUE [id number] 15:21:00A previously reported component Diagnosis Comment is no longer reported.Surgical Pathology Report Case: [id number] Authorizing Provider: Holger Lr DO Collected: 04/10/2019 1152 Ordering Location: [place] [address] OP Received: 04/10/2019 1121 Pathologist: Clint Street MD Specimen: Kidney The addendum is being issued to report the results of electron microscopic evaluation. The diagnosis is unchanged.RESULTSDIAGNOSTIC ELECTRON MICROSCOPY:Thick section histology: Toluidine blue-stained sections reveal five nonsclerotic glomeruli of which 4 are examined ultrastructurally.Ultrastructure: Examination of the glomerular ultrastructure reveals that the glomerular basement membrane are globally and irregularly thick with presence of numerous subepithelial and intramembranous immune complex type electron dense deposits, with intervening GBM spikes and segmental neomembrane formation. Mesangial/paramesangial deposits are also noted. 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 The EM images were interpreted [facility] the reporting [facility]ologist [facility] electronically signed by Clint Street MD on 05/18/2019 at 3:21 PMKIDNEY, LEFT, ULTRASOUND-GUIDED NEEDLEBIOPSIES- MEMBRANOUS GLOMERULONEPHRITIS, CONSISTENT WITH LUPUS NEPHRITIS CLASS V- MINIMAL TO MILD INTERSTITIAL FIBROSIS AND TUBULAR ATROPHY (5% TO 10%)- MILD ARTERIAL INTIMAL FIBROSIS- see comment Signing Pathologist Direct Phone Line: [phone] signed by Clint Street MD on 04/16/2019 at 1:20 PMPreliminary result electronically signed by Clint Street MD on 04/11/2019 at11:50 [id number], 14085 x3, 64249, 74983 x7, [id number]-kmaknwy with 4+ proteinuria in her UA andUPC of 1.1g last month, positive for DsDNA, HLA DQ2, cardiolipin IgG and Cardiolipin IgM. Also low C4, normal serum creatinine.Pre and postop diagnosis: proteinuria, autoimmune disease disorder, essential hypertensionUltrasound-guided needle biopsy of left kidneyNative kidney, leftThe case is receivedin three containers, each labeled with the patient's [...] of internal control tissue matrix structures.IMMUNOFLUORESCENCE Histology: H&E- stained sections show 23 non-obsolescent glomeruli.Direct immunofluorescence findings: IgA: Glomeruli with focal segmental trace peripheral granular stainingIgG: Glomeruli with diffuse and global, peripheral granular staining 3+IgM: Glomeruli with diffuse, segmental to global, mesangial and peripheral granular staining 2+ C3: Glomeruli with focal and segmental weak peripheral staining, arterioles +C1q: Glomeruli with diffuse and global, peripheral granular staining 1+ to 2+Harlan: Glomeruli with diffuse and global, peripheral granular staining 3+, tubular protein droplets are positiveLambda: Glomeruli with diffuse and global, peripheral granular staining 2+, tubular protein droplets are positiveFibrinogen: No significant stainingIAGNOSTIC ELECTRON MICROSCOPY:Thick section histology: Toluidine blue-stained sections revealfive nonsclerotic glomeruli and one globally sclerotic glomerulus. Four non-sclerotic glomeruli are examined ultrastructurally.Ultrastructure: Examination of the glomerular ultrastructure reveals that [...] evaluated Immunohistochemistry technical testing was performed at [facility], Pathology Laboratory where it was developed and its performance characteristics were determined. It has not been cleared or approved by the U.S. Food and Drug Administration. The FDA has determined that such clearance orapproval is not necessary. The test is used for clinical purposes. It should not be regarded as investigational or for research. This laboratory is certified under the Clinical Laboratory Improvement Amendments of 1988 (CLIA-88) as qualified to perform high complexity clinical laboratory testing.HEMOGLOBIN AND [id number] 18:27:00 Test Item Value Reference Range Interpretation Comments HEMOGLOBIN (BEAKER) (test code = 8.6 GM/DL 11.2-15.7 L 410) HEMATOCRIT (BEAKER) (test code = 27.8 % 34.1-44.9 L 411) CT, CTA ABDOMEN, ANGIO [id number] 17:03:00Renal CTA study. Precontrast, Arterial and Delayed phases through the abdomen/kidneys. NO ORAL CONTRAST. Please contact Dr. Menendez in angio with questions [phone].Anesthesia:->None FINAL REPORT History: Left perinephric hematoma following ultrasound-guided [...] system. The right kidney and remaining solid abd ominal organs including the liver spleen, pancreas and [...] through the lower chest and lung bases are unremarkable except for slight increased opacity in the left lower lobe, likely atelectasis. IMPRESSION: 1. Stable left perinephric hematoma without evidence for active hemorrhage or vascular anomalies. 2. Borderline splenomegaly. 3. Probable left lower lobe atelectasis. 4. Status post cholecystectomy. Signed: Madison Menendez MDReport Verified Date/Time: 04/16/2019 17:03:04 Reading Location: [place] [id number] Angio Body Reading Room PROTEIN, RANDOM [id number] 16:30:00 Test Item Value Reference Range Interpretation Comments PROTEIN, URINE (BEAKER) (test code 271 mg/dL 0-14 H = 1569) CREATININE, RANDOM [id number] 14:33:00 Test Item Value Reference Range Interpretation Comments CREATININE URINE (BEAKER) (test 93.3 mg/dL code = 375) Reference Range: No NormalsBASIC METABOLIC [id number] 05:40:00 Test Item Value Reference Range Interpretation Comments SODIUM (BEAKER) 138 meq/L 136-145 (test code = 381) POTASSIUM (BEAKER) 4.1 meq/L 3.5-5.1 (test code = 379) CHLORIDE (BEAKER) 112 meq/L 98-107 H (test code = 382) CO2 (BEAKER) (test 18 meq/L 22-29 L code = 355) BLOOD UREA NITROGEN 9 mg/dL 7-21 (BEAKER) (test code = 354) CREATININE (BEAKER) 0.65 mg/dL 0.57-1.25 (test code = 358) GLUCOSE RANDOM 92 mg/dL 70-105 (BEAKER) (test code = 652) CALCIUM (BEAKER) 8.2 mg/dL 8.4-10.2 L (test code = 697) EGFR (BEAKER) (test 116 mL/min/1.73 ESTIM ATED GFR IS code = 1092) sq m NOT ACCURATE CREATININE CLEARANCE IN PREDICTING GLOMERULAR FILTRATION RATE . ESTIMATED GFR I S NOT APPLICABLE FOR DIALYSIS PATIEN TS. [id number] 05:37:00 Test Item Value Reference Range Interpretation Comments PROTIME (BEAKER) (test code = 14.1 seconds 11.9-14.2 759) INR (BEAKER) (test code = 370) 1.1 <=5.9 PARTIAL THROMBOPLASTIN TIME 60.1 seconds 22.5-36.0 H (BEAKER) (test code = 760) Effective 09/17/2018: PT Reference Range ChangeNew: 11.9-14.2 Previous: 11.7- 14.7RECOMMENDED COUMADIN/WARFARIN INR THERAPY RANGESSTANDARD DOSE: 2.0-3.0 Includes: PROPHYLAXIS for venous thrombosis, systemic embolization; TREATMENT for venous thrombosis and/or pulmonary embolus.HIGH RISK: Target INR is2.5-3.5 for patients wiht mechanical heart valves.CBC W/PLT COUNT & AUTO [id number] 05:18:00 Test Item Value Reference Range Interpretation Comments WHITE BLOOD CELL COUNT (BEAKER) 7.9 K/ L 3.5-10.5 (test code = 775) RED BLOOD CELL COUNT (BEAKER) 3.14 M/ L 3.93-5.22 L (test code = 761) HEMOGLOBIN (BEAKER) (test code = 8.5 GM/DL 11.2-15.7 L 410) HEMATOCRIT (BEAKER) (test code = 27.2 % 34.1-44.9 L 411) MEAN CORPUSCULAR VOLUME (BEAKER) 86.6 fL 79.4-94.8 (test code = 753) MEAN CORPUSCULAR HEMOGLOBIN 27.1 pg 25.6-32.2 (BEAKER) (test code = 751) MEAN CORPUSCULAR HEMOGLOBIN CONC 31.3 GM/DL 32.2-35.5 L (BEAKER) (test code = 752) RED CELL DISTRIBUTION WIDTH 13.4 % 11.7-14.4 (BEAKER) (test code = 412) PLATELET COUNT (BEAKER) (test 133 K/CU MM 150-450 L code = 756) MEAN PLATELET VOLUME (BEAKER) 10.9 fL 9.4-12.3 (test code = 754) NUCLEATED RED BLOOD CELLS 0 /100 WBC 0-0 (BEAKER) (test code = 413) NEUTROPHILS RELATIVE PERCENT 68 % (BEAKER) (test code = 429) LYMPHOCYTES RELATIVE PERCENT 21 % (BEAKER) (test code = 430) MONOCYTES RELATIVE PERCENT 9 % (BEAKER) (test code = 431) EOSINOPHILS RELATIVE PERCENT 0 % (BEAKER) (test code = 432) BASOPHILS RELATIVE PERCENT 0 % (BEAKER) (test code = 437) NEUTROPHILS ABSOLUTE COUNT 5.43 K/ L 1.56-6.13 (BEAKER) (test code = 670) LYMPHOCYTES ABSOLUTE COUNT 1.68 K/ L 1.18-3.74 (BEAKER) (test code = 414) MONOCYTES ABSOLUTE COUNT (BEAKER) 0.74 K/ L 0.24-0.36 H (test code = 415) EOSINOPHILS ABSOLUTE COUNT 0.03 K/ L 0.04-0.36 L (BEAKER) (test code = 416) BASOPHILS ABSOLUTE COUNT (BEAKER) 0.02 K/ L 0.01-0.08 (test code = 417) IMMATURE GRANULOCYTES-RELATIVE 0 % 0-1 PERCENT (BEAKER) (test code = 2801) U/S, BIOPSY, RENAL (KIDNEY)2019-04-10 14:35:00Reason for Exam:->other proteinuria, autoimmune disorder, htnFINAL REPORT History: Proteinuria. PROCEDURE: Following informed written consent and [...] needle, a totalof four passes and three 18-gauge core tissue [...] of the left kidney. Signed: Madison Menendez MDReport Verified Date/Time: 04/10/2019 14:35:37 Reading Location: [place] [id number] Angio Body Reading Room [id number] 07:58:00 Test Item Value Reference Range Interpretation Comments PARTIAL THROMBOPLASTIN TIME 70.7 seconds 22.5-36.0 H (BEAKER) (test code = 760) PROTHROMBIN [id number] 07:56:00 Test Item Value Reference Range Interpretation Comments PROTIME (BEAKER) (test code = 13.2 seconds 11.9-14.2 759) INR (BEAKER) (test code = 370) 1.1 <=5.9 Effective 09/17/2018: PT Reference Range ChangeNew: 11.9-14.2 Previous: 11.7- 14.7RECOMMENDED COUMADIN/WARFARIN INR THERAPY RANGESSTANDARD DOSE: 2.0-3.0 Includes: PROPHYLAXIS for venous thrombosis, systemic embolization; TREATMENT for venous thrombosis and/or pulmonary embolus.HIGH RISK: Target INR is2.5-3.5 for patients wiht mechanical heart valves.CBC W/PLT COUNT & AUTO [id number] 07:33:00 Test Item Value Reference Range Interpretation Comments WHITE BLOOD CELL COUNT (BEAKER) 5.2 K/ L 3.5-10.5 (test code = 775) RED BLOOD CELL COUNT (BEAKER) 4.37 M/ L 3.93-5.22 (test code = 761) HEMOGLOBIN (BEAKER) (test code = 12.0 GM/DL 11.2-15.7 410) HEMATOCRIT (BEAKER) (test code = 36.4 % 34.1-44.9 411) MEAN CORPUSCULAR VOLUME (BEAKER) 83.3 fL 79.4-94.8 (test code = 753) MEAN CORPUSCULAR HEMOGLOBIN 27.5 pg 25.6-32.2 (BEAKER) (test code = 751) MEAN CORPUSCULAR HEMOGLOBIN CONC 33.0 GM/DL 32.2-35.5 (BEAKER) (test code = 752) RED CELL DISTRIBUTION WIDTH 12.9 % 11.7-14.4 (BEAKER) (test code = 412) PLATELET COUNT (BEAKER) (test 128 K/CU MM 150-450 L code = 756) MEAN PLATELET VOLUME (BEAKER) 11.2 fL 9.4-12.3 (test code = 754) NUCLEATED RED BLOOD CELLS 0 /100 WBC 0-0 (BEAKER) (test code = 413) NEUTROPHILS RELATIVE PERCENT 57 % (BEAKER) (test code = 429) LYMPHOCYTES RELATIVE PERCENT 31 % (BEAKER) (test code = 430) MONOCYTES RELATIVE PERCENT 10 % (BEAKER) (test code = 431) EOSINOPHILS RELATIVE PERCENT 2 % (BEAKER) (test code = 432) BASOPHILS RELATIVE PERCENT 1 % (BEAKER) (test code = 437) NEUTROPHILS ABSOLUTE COUNT 2.96 K/ L 1.56-6.13 (BEAKER) (test code = 670) LYMPHOCYTES ABSOLUTE COUNT 1.62 K/ L 1.18-3.74 (BEAKER) (test code = 414) MONOCYTES ABSOLUTE COUNT (BEAKER) 0.51 K/ L 0.24-0.36 H (test code = 415) EOSINOPHILS ABSOLUTE COUNT 0.09 K/ L 0.04-0.36 (BEAKER) (test code = 416) BASOPHILS ABSOLUTE COUNT (BEAKER) 0.03 K/ L 0.01-0.08 (test code = 417) IMMATURE GRANULOCYTES-RELATIVE 0 % 0-1 PERCENT (BEAKER) (test code = 2801) SCREEN, [id number] 07:30:00 Test Item Value Reference Range Interpretation Comments TEST URINE (BEAKER) (test Negative code = 583) POCT URINALYSIS [id number] 00:00:00 Test Item Value Reference Range Interpretation Comments COLOR UA (test code = 5778-6) Yellow YELLOW/STRAW CLARITY UA (test code = 19566-9) Clear CLEAR GLUCOSE UA (test code = 5792-7) Negative NEGATIVE BILIRUBIN UA (test code = 5770-3) Negative NEGATIVE KETONES UA (test code = 25809-1) Negative NEGATIVE SPECIFIC GRAVITY UA (test code = 1.005-1.035 5811-5) BLOOD UA (test code = 5794-3) Trace NEGATIVE PH UA (test code = 5803-2) 5-9 PROTEIN UA (test code = 5804-0) 2+ NEGATIVE UROBILINOGEN UA (test code = 0.02 E.U/DL NORMAL MG/DL 5818-0) LEUKOCYTE ESTERASE UA (test code Negative NEGATIVE = 5799-2) NITRITE UA (test code = 5802-4) Negative NEGATIVE REDUCING SUBSTANCES URINE (test NEGATIVE code = 77330-0) [facility],US,[id number] 00:00:00 Test Item Value Reference Range Interpretation Comments PVR (test code = 6116) 49 ml cc/ml [facility], WITH [id number] 12:57:00FINAL REPORT CT of the chest, abdomen [...] adrenal glands are unremarkable. Kidneys demonstrate no mass, hydronephrosis or radiopaque stone. No evidence of bowel obstruction, or abnormal bowel wallthickening. Normal appendix. In the pelvis, the there are small stones in the bladder. Uterus and adnexa are unremarkable. No ascites, lymphadenopathy, or free air. Osseous structures are intact. Impression: Borderline splenomegaly. Small stones in bladder. Status post cholecystectomy. Signed: Kenny Del Rosario Verified Date/Time: 11/14/2018 12:57:23 Reading Location: [facility] C013X [facility] Consult Reading Room CT, [id number] 12:57:00FINAL REPORT CT of the chest, abdomen [...] adrenal glands are unremarkable. Kidneys demonstrate no mass, hydronephrosis or radiopaque stone. No evidence of bowel obstruction, or abnormal bowel wallthickening. Normal appendix. In the pelvis, the there are small stones in the bladder. Uterus and adnexa are unremarkable. No ascites, lymphadenopathy, or free air. Osseous structures are intact. Impression: Borderline splenomegaly. Small stones in bladder. Status post cholecystectomy. Signed: Kenny Del Rosario MDReport Verified Date/Time: 11/14/2018 12:57:23 Reading Location: [address] Ortho Consult Reading Room [id number] 11:06:00 Test Item Value Reference Range Interpretation Comments POC-CREATININE 0.7 mg/dL 0.6-1.3 TESTED AT [facility] ([facility] (test [address] [facility] code = 1859) [facility] 7703 0 POC-EGFR 107 mL/min/1.73M2 ([facility] (test code = 1860) ANTINUCLEAR ANTIBODIES [id number] 18:20:00 Test Item Value Reference Range Interpretation Comments YOCASTA DIRECT (test code Negative Negative Perfor med At: HD [facility] = ANADIR) [address] [place], [place] [id number] Fernando Arreguin MD Ph:[phone] ANTINUCLEAR ANTIBODIES [id number] 11:37:00 Test Item Value Reference Range Interpretation Comments YOCASTA DIRECT (test code = Negative Negative Perf ormed At: HD ANADIR) [facility] [id number] Arreguin MD Ph:[phone] AB DNA DOUBLE STRAND (test code = DNADSAB) AB TEETEE/CRIB PAD MAKER FRACTION (test code = RNPAB) AB TEETEE/SM FRACTION (test code = SMAB) AB TOBY-1 (test code = JO1AB) AB SCLERODERMA (test code = SCLERAB) AB SJOGRENS A/SSA (test code = SJAAB) AB SJOGRENS B/SSB (test code = SJBAB) ANTINUCLEAR ANTIBODIES [id number] 11:37:00 Test Item Value Reference Range Interpretation Comments YOCASTA DIRECT (test code = Negative Negative Perf ormed At: HD ANADIR) [facility] [id number] Arreguin MD Ph:[phone] AB DNA DOUBLE STRAND (test code = DNADSAB) AB TEETEE/SM FRACTION (test code = SMAB) AB TOBY-1 (test code = JO1AB) AB SCLERODERMA (test code = SCLERAB) AB SJOGRENS A/SSA (test code = SJAAB) AB SJOGRENS B/SSB (test code = SJBAB) ANTINUCLEAR ANTIBODIES [id number] 11:37:00 Test Item Value Reference Range Interpretation Comments YOCASTA DIRECT (test code = Negative Negative Perf ormed At: HD ANADIR) [facility] [id number] Arreguin MD Ph:[phone] AB DNA DOUBLE STRAND (test code = DNADSAB) AB TOBY-1 (test code = JO1AB) AB SCLERODERMA (test code = SCLERAB) AB SJOGRENS A/SSA (test code = SJAAB) AB SJOGRENS B/SSB (test code = SJBAB) ANTINUCLEAR ANTIBODIES [id number] 11:37:00 Test Item Value Reference Range Interpretation Comments YOCASTA DIRECT (test code = Negative Negative Perf ormed At: HD ANADIR) [address] [id number] Arreguin MD Ph:[phone] AB DNA DOUBLE STRAND (test code = DNADSAB) AB SCLERODERMA (test code = SCLERAB) AB SJOGRENS A/SSA (test code = SJAAB) AB SJOGRENS B/SSB (test code = SJBAB) ANTINUCLEAR ANTIBODIES [id number] 11:37:00 Test Item Value Reference Range Interpretation Comments YOCASTA DIRECT (test code Negative Negative Perfor med At: HD = ANADIR) [facility] [id number] Arreguin MD Ph:[phone] AB DNA DOUBLE STRAND (test code = DNADSAB) AB SJOGRENS A/SSA (test code = SJAAB) AB SJOGRENS B/SSB (test code = SJBAB) ANTINUCLEAR ANTIBODIES [id number] 11:37:00 Test Item Value Reference Range Interpretation Comments YOCASTA DIRECT (test code Negative Negative Perfor med At: HD = ANADIR) [facility] [id number] Arreguin MD Ph:[phone] AB DNA DOUBLE STRAND (test code = DNADSAB) AB SJOGRENS B/SSB (test code = SJBAB) ANTINUCLEAR ANTIBODIES [id number] 11:37:00 Test Item Value Reference Range Interpretation Comments YOCASTA DIRECT (test code Negative Negative Perfor med At: HD [facility] = ANADIR) [address] [id number] Arreguin MD Ph:[phone] AB DNA DOUBLE STRAND (test code = DNADSAB) ANTINUCLEAR ANTIBODIES [id number] 14:02:00 Test Item Value Reference Range Interpretation Comments YOCASTA DIRECT (test code = Negative Negative Perf ormed At: HD ANADIR) [facility] [address] [id number] Arreguin MD Ph:[phone] AB CENTROMERE (test code = CENTRAB) AB DNA DOUBLE STRAND (test code = DNADSAB) AB TEETEE/CRIB PAD MAKER FRACTION (test code = RNPAB) AB TEETEE/SM FRACTION (test code = SMAB) AB TOBY-1 (test code = JO1AB) AB SCLERODERMA (test code = SCLERAB) AB SJOGRENS A/SSA (test code = SJAAB) AB SJOGRENS B/SSB (test code = SJBAB) URINALYSIS W/O [id number] 13:24:00 Test Item Value Reference Range Interpretation Comments UA GLUCOSE DIPSTICK (test code = NEGATIVE NEGATIVE DGLUU) UA KETONE DIPSTICK (test code = NEGATIVE NEGATIVE KETU) UA PROTEIN DIPSTICK (test code = 2+ NEGATIVE PROU) Comments to Bone Char Puller: DIP FOR PROTEINSpecimen Comment: CLEAN CATCHIS NURSE PERFORMING TEST? LIZZ CREATININE CLEARANCE [id number] 23:40:00 Test Item Value Reference Range Interpretation Comments CREATININE CLEARANCE RESULT (test 150 ml/min 70-120 H code = CREATCLR) CREATININE (test code = CREAT) 0.6 mg/dL 0.5-1.0 N UR CREATININE RANDOM (test code = 60.7 mg/dL CREATU) UR VOLUME (test code = VOL) 2150 ML UR PROTEIN [id number] 23:40:00 Test Item Value Reference Range Interpretation Comments UR PROTEIN RANDOM 47.1 mg/dL (test code = PROTU) UR PROTEIN 24HR 1013 mg/24HR 20-150 HH RESULTS CALL ED TO (test code = WEST G.READ BACK & NFDS90Q) CONFIRMED? YES. BY F.LAB.ELB1 12/08 2340.Units for 24 HR Urine Protein h ave changed: New U nits = MG/24HR [id number] 21:24:00 Test Item Value Reference Range Interpretation Comments CREATININE (test code = CREAT) 0.6 mg/dL 0.5-1.0 N [id number] 21:24:00 Test Item Value Reference Range Interpretation Comments SGOT/AST (test code = AST) 30 units/L 15-37 N [id number] 21:24:00 Test Item Value Reference Range Interpretation Comments SGPT/ALT (test code = ALT) 35 units/L 12-78 N CBC W/AUTO [id number] 20:57:00 Test Item Value Reference Range Interpretation Comments WHITE BLOOD CELL (test code = WBC) 11.1 K/mm3 6.6-12.1 N RED BLOOD CELL (test code = RBC) 4.02 M/mm3 3.45-5.01 N HEMOGLOBIN (test code = HGB) 12.2 g/dL 10.7-13.9 N HEMATOCRIT (test code = HCT) 36.7 % 32.1-42.1 N MEAN CELL VOLUME (test code = MCV) 91 fL 84.1-94.8 N MEAN CELL HGB (test code = MCH) 30.3 pg 27-35 N MEAN CELL HGB CONCETRATION (test 33.2 gm/dL 32.2-34.1 N code = MCHC) RED CELL DISTRIBUTION WIDTH (test 12.7 % 12.4-16.5 N code = RDW) PLATELET COUNT (test code = PLT) 125 K/mm3 133-385 L IMMATURE PLATELET FRACTION (test 0.0 % 0.0-10.8 N code = IPF) MEAN PLATELET VOLUME (test code = 11.8 fl 9.1-12.7 N MPV) NEUTROPHIL % (test code = NT%) 70.6 % 56.5-79.4 N LYMPHOCYTE % (test code = LY%) 19.7 % 14.3-34.3 N MONOCYTE % (test code = MO%) 7.3 % 5.1-10.4 N EOSINOPHIL % (test code = EO%) 1.1 % 0.1-3.0 N BASOPHIL % (test code = BA%) 0.4 % 0.1-1.0 N NEUTROPHIL # (test code = NT#) 7.8 K/mm3 LYMPHOCYTE # (test code = LY#) 2.2 K/mm3 MONOCYTE # (test code = MO#) 0.8 K/mm3 EOSINOPHIL # (test code = EO#) 0.12 K/mm3 BASOPHIL # (test code = BA#) 0.0 K/mm3 RBC MORPHOLOGY REQUIRED (test code NORMAL NORMAL = RBCM) PLATELET MORPHOLOGY REQUIRED (test NORMAL NORMAL code = PLTMR) CBC W/AUTO [id number] 06:31:00 Test Item Value Reference Range Interpretation Comments WHITE BLOOD CELL (test code = WBC) 10.0 K/mm3 6.6-12.1 N RED BLOOD CELL (test code = RBC) 3.98 M/mm3 3.45-5.01 N HEMOGLOBIN (test code = HGB) 12.0 g/dL 10.7-13.9 N HEMATOCRIT (test code = HCT) 36.3 % 32.1-42.1 N MEAN CELL VOLUME (test code = MCV) 91 fL 84.1-94.8 N MEAN CELL HGB (test code = MCH) 30.2 pg 27-35 N MEAN CELL HGB CONCETRATION (test 33.1 gm/dL 32.2-34.1 N code = MCHC) RED CELL DISTRIBUTION WIDTH (test 12.7 % 12.4-16.5 N code = RDW) PLATELET COUNT (test code = PLT) 112 K/mm3 133-385 L IMMATURE PLATELET FRACTION (test 0.0 % 0.0-10.8 N code = IPF) MEAN PLATELET VOLUME (test code = 11.8 fl 9.1-12.7 N MPV) NEUTROPHIL % (test code = NT%) 73.3 % 56.5-79.4 N LYMPHOCYTE % (test code = LY%) 16.3 % 14.3-34.3 N MONOCYTE % (test code = MO%) 8.0 % 5.1-10.4 N EOSINOPHIL % (test code = EO%) 1.3 % 0.1-3.0 N BASOPHIL % (test code = BA%) 0.3 % 0.1-1.0 N NEUTROPHIL # (test code = NT#) 7.4 K/mm3 LYMPHOCYTE # (test code = LY#) 1.6 K/mm3 MONOCYTE # (test code = MO#) 0.8 K/mm3 EOSINOPHIL # (test code = EO#) 0.13 K/mm3 BASOPHIL # (test code = BA#) 0.0 K/mm3 RBC MORPHOLOGY REQUIRED (test code NORMAL NORMAL = RBCM) PLATELET MORPHOLOGY REQUIRED (test NORMAL NORMAL code = PLTMR) CHEMISTRY 7 [id number] 23:59:00 Test Item Value Reference Range Interpretation Comments SODIUM (test code = NA) 138 mEq/L 135-145 N POTASSIUM (test code = K) 3.6 mEq/L 3.5-5.0 N CHLORIDE (test code = CL) 105 mEq/L 100-115 N CARBON DIOXIDE (test code = CO2) 25 mEq/L 22-31 N ANION GAP (test code = GAP) 11.80 10-20 N GLUCOSE (test code = GLU) 101 mg/dL 65-110 N BLOOD UREA NITROGEN (test code = 11 mg/dL 7-18 N BUN) GLOMERULAR FILTRATION RATE (test 159 ml/min >60 N code = GFR) CREATININE (test code = CREAT) 0.5 mg/dL 0.5-1.0 N CALCIUM (test code = CA) 8.6 mg/dL 8.4-10.2 N CBC W/AUTO [id number] 23:57:00 Test Item Value Reference Range Interpretation Comments WHITE BLOOD CELL (test code = WBC) 10.3 K/mm3 6.6-12.1 N RED BLOOD CELL (test code = RBC) 3.99 M/mm3 3.45-5.01 N HEMOGLOBIN (test code = HGB) 11.8 g/dL 10.7-13.9 N HEMATOCRIT (test code = HCT) 36.4 % 32.1-42.1 N MEAN CELL VOLUME (test code = MCV) 91 fL 84.1-94.8 N MEAN CELL HGB (test code = MCH) 29.6 pg 27-35 N MEAN CELL HGB CONCETRATION (test 32.4 gm/dL 32.2-34.1 N code = MCHC) RED CELL DISTRIBUTION WIDTH (test 12.8 % 12.4-16.5 N code = RDW) PLATELET COUNT (test code = PLT) 114 K/mm3 133-385 L IMMATURE PLATELET FRACTION (test 4.2 % 0.0-10.8 N code = IPF) MEAN PLATELET VOLUME (test code = 11.5 fl 9.1-12.7 N MPV) NEUTROPHIL % (test code = NT%) 68.4 % 56.5-79.4 N LYMPHOCYTE % (test code = LY%) 21.5 % 14.3-34.3 N MONOCYTE % (test code = MO%) 7.8 % 5.1-10.4 N EOSINOPHIL % (test code = EO%) 1.1 % 0.1-3.0 N BASOPHIL % (test code = BA%) 0.3 % 0.1-1.0 N NEUTROPHIL # (test code = NT#) 7.0 K/mm3 LYMPHOCYTE # (test code = LY#) 2.2 K/mm3 MONOCYTE # (test code = MO#) 0.8 K/mm3 EOSINOPHIL # (test code = EO#) 0.11 K/mm3 BASOPHIL # (test code = BA#) 0.0 K/mm3 RBC MORPHOLOGY REQUIRED (test code NORMAL NORMAL = RBCM) PLATELET MORPHOLOGY REQUIRED (test NORMAL NORMAL code = PLTMR) - US PREG UT [id number] 13:02:00 Patient Name: PAM EASTON Unit No: [id number] EXAMS: CPT CODE: [id number] US PREG MT TRANSVAGINAL [address] [facility] [address] [place], [place] [address] LIMITED OBSTETRICAL ULTRASOUND REPORT Pat. Name: PAM EASTON Pat. No: [id number] Study Date: 05/09/2018 11:33am , Age: 04 2000, 17 Pregnancies: 2, Para 0 LMP: 01/12/2018 GA by LMP: 16w5d GA by US: 15w5d GA Selected: 16w5d (LMP) ANIYA: 10/19/2018 Referring MD: Jaiden Arana Web Sizer: Danielle Webb RDMS, RVT CPT4: USPRUTTRVG Admitting MD: Jaiden Arana Hist/Ind: SCAN 1 VAG. BLEEDING MEASUREMENTS AGE GROWTH EVALUATION Measurement GA Range Srce %for GA Ratios ----- ---- ------- BPD 3.3 cm 15w6d (40u2t-85u2d) Hadl BPD 14% FL/BPD 0.58 HC 12.0 cm 15w6d (44z0d-58s7m) Hadl HC 23% FL/AC 0.18 APD 3.3 cm APD HC/AC 1.16 (1.09 - 1.28) TAD 3.3 cm TAD CI 0.85 (0.70 - 0.86) AC 10.4 cm 16w0d (36i5j-68i4y) Hadl AC 32% FL 1.9 cm 15w3d (05j4k-81j5r) Hadl FL <05 HL 1.9 cm 15w4d (91q9t-89y3c) Leeroy HL 31% GA for sonogram 15w5d (91q4e-41k5j) Weight Estimate: based on (HL,HC,AC,FL) Avg Weight: [...] US motion and organs seen: SIMONE MCCORD [facility] NAME: EASTON,APURVAJANICE Radiology Department PHYS: - Jaiden Arana [address] : 2000 AGE: 17 SEX: F [place], [place] [address] LOC: AngelaERS PHONE #: [phone] EXAM DATE: 05/09/2018 STATUS: DEP ER FAX #: [phone] NO: Page 1 Signed Report (CONTINUED) Patient Name: PAM EASTON Unit No: [id number] EXAMS: CPT CODE: [id number] US PREG UT TRANSVAGINAL 18077 <Continued> heart motion seen Placental location: Posterior Right lateral low lying Placental maturity : Grade 1 There is no evidence of placenta previa. Amniotic fluid volume is normal. Uterus and adnexa: No significant abnormalities seen [place] william and adnexa: No sonographic evidence of abruption. Antonia Mendes M.D. Electronic Signature 05/09/2018 01:02pm at 1302 Reported and signed by: Antonia Mendes MD CC: Jaiden Arana MD Technologist: Danielle Webb RDMS, RVT; Harmony Probe: [id number] Trnscrbd D/ (1302) Ricardo Orig Print D/T: S: 05/12/2018 (5054) [facility] NAME: PAM EASTON Radiology Department PHYS: GUTAL. - Jaiden Arana [address] : 2000 AGE: 17 SEX: F [place] [id number] LOC: AngelaERS PHONE #: [phone] EXAM DATE: 05/09/2018 STATUS: DEP ER FAX #: [phone] RAD NO: Page 2 Signed Report Patient Name: PAM EASTON Unit No: [id number] EXAMS: CPT CODE: [id number] US PREG UT TRANSVAGINAL [address] <Continued> [facility] NAME: PAM EASTON Radiology Department PHYS: GUTJENNIFER. - Jaiden Arana [address] : 2000 AGE: 17 SEX: F [place] [address] LOC: AngelaERS PHONE #: [phone] EXAM DATE: 05/09/2018 STATUS: DEP ER FAX #: [phone] RAD NO: Page 3 Signed Report- US FLW [id number] 13:02:00 Patient Name: PAM EASTON Unit No: [id number] EXAMS: C[place]: [id number] [address] [facility] [address] [place], [place] [address] LIMITED OBSTETRICAL ULTRASOUND REPORT Pat. Name: PAM EASTON Pat. No: [id number] Study Date: 05/09/2018 11:33am , Age: 04 2000, 17 Pregnancies: 2, Para 0 LMP: 01/12/2018 GA by LMP: 16w5d GA by US: 15w5d GA Selected: 16w5d (LMP) ANIYA: 10/19/2018 Referring MD: JAIDEN ARANA Web Sizer: Danielle Webb RDMS, RVT CPT4: USPREGLTD Admitting MD: JAIDEN ARANA Hist/Ind: SCAN 1 VAG. BLEEDING MEASUREMENTS AGE GROWTH EVALUATION Measurement GA Range Srce %for GA Ratios ----- ---- ------- BPD 3.3 cm 15w6d (30x4p-61m8o) Hadl BPD 14% FL/BPD 0.58 HC 12.0 cm 15w6d (30q8j-23k9z) Hadl HC 23% FL/AC 0.18 APD 3.3 cm APD HC/AC 1.16 (1.09 - 1.28) TAD 3.3 cm TAD CI 0.85 (0.70 - 0.86) AC 10.4 cm 16w0d (12g9l-27u7w) Hadl AC 32% FL 1.9 cm 15w3d (93v2p-82o4t) Hadl FL <05 HL 1.9 cm 15w4d (96v6x-84c5e) Leeroy HL 31% GA for sonogram 15w5d (63v2w-04w0c) Weight Estimate: based on (HL,HC,AC,FL) Avg Weight: [...] motion and organs seen: SIMONE MCCORD [facility] [place] NAME: PAM EASTON Radiology Department PHYS: Jaiden De Leon [address] : 2000 AGE: 17 SEX: [place] [address] LOC: AngelaCECE PHONE #: [phone] EXAM DATE: 05/09/2018 STATUS: REG ER FAX #: [phone] R AD NO: Page 1 Signed Report (CONTINUED) Patient Name: PAM EASTON Unit No: [id number] EXAMS: CPT CODE: [id number] [place] [address] <Continued> heart motion seen Placental location: Posterior [...] Danielle Webb RDMS, RVT; Harmony Probe: Trnscrbd D/ (1302) t.SDR.NMG Orig Print D/T: S:05/09/2018 (1302) [facility]YS: GUTAL. - Jaiden Arana [address] : 2000 AGE: 17 SEX: F [place] [address] LOC: Doris.ERS PHONE #: [phone] EXAM DATE: 05/09/2018 STATUS: REG ER FAX #: [phone] RAD NO: Page 2 Signed Report Patient Name: PAM EASTON Unit No: [id number] EXAMS: CPT CODE: [id number] [place] [address] <Continued> [facility] NAME: PAM EASTON Radiology Department PHYS: GUTAL. - Jaiedn Arana [address] : 2000 AGE: 17 SEX: F [place] [address] LOC: Doris.ERSPHONE #: [phone] EXAM DATE: 05/09/2018 STATUS: REG ER FAX #: [phone] RAD NO: Page 3 Signed ReportUA RFLX MICR CULT IF INDICATED 2018-05-09 11:42:00 Test Item Value Reference Range Interpretation Comments UA COLOR (test code = COLU) STRAW YELLOW UA APPEARANCE (test code = CLEAR CLEAR APPU) UA GLUCOSE DIPSTICK (test code NEGATIVE NEG = DGLUU) UA BILIRUBIN DIPSTICK (test NEGATIVE NEG code = BILU) UA KETONE DIPSTICK (test code NEGATIVE NEG = KETU) UA SPECIFIC GRAVITY (test code 1.003 1.001-1.035 N = SGU) UA BLOOD DIPSTICK (test code = 1+ NEG A DELROY) UA PH DIPSTICK (test code = 7.0 5-9 TOREY) UA PROTEIN DIPSTICK (test code 1+ NEG A = PROU) UA UROBILINIOGEN DIPSTICK NEGATIVE mg/dL NEG (test code = URO) UA NITRITE DIPSTICK (test code NEG NEG = GERONIMO) UA LEUKOCYTE ESTERASE DIPSTICK 1+ NEG A (test code = LEUU) UA WBC (test code = WBCU) 0-2 #/hpf NONE SEEN UA RBC (test code = RBCU) 0-2 #/hpf NONE SEEN UA EPITHELIAL CELLS (test code RARE #/HPF RARE-FEW = EPIU) UA BACTERIA (test code = BACU) RARE /HPF RARE-FEW UA MUCUS (test code = MUCU) RARE NONE SEEN CBC W/AUTO [id number] 11:38:00 Test Item Value Reference Range Interpretation Comments WHITE BLOOD CELL (test code = WBC) 9.9 K/mm3 6.6-12.1 N RED BLOOD CELL (test code = RBC) 4.46 M/mm3 3.45-5.01 N HEMOGLOBIN (test code = HGB) 13.3 g/dL 10.7-13.9 N HEMATOCRIT (test code = HCT) 40.0 % 32.1-42.1 N MEAN CELL VOLUME (test code = MCV) 90 fL 84.1-94.8 N MEAN CELL HGB (test code = MCH) 29.8 pg 27-35 N MEAN CELL HGB CONCETRATION (test 33.3 gm/dL 32.2-34.1 N code = MCHC) RED CELL DISTRIBUTION WIDTH (test 12.7 % 12.4-16.5 N code = RDW) PLATELET COUNT (test code = PLT) 144 K/mm3 133-385 N IMMATURE PLATELET FRACTION (test 0.0 % 0.0-10.8 N code = IPF) MEAN PLATELET VOLUME (test code = 11.1 fl 9.1-12.7 N MPV) NEUTROPHIL % (test code = NT%) 74.2 % 56.5-79.4 N LYMPHOCYTE % (test code = LY%) 16.7 % 14.3-34.3 N MONOCYTE % (test code = MO%) 6.9 % 5.1-10.4 N EOSINOPHIL % (test code = EO%) 0.6 % 0.1-3.0 N BASOPHIL % (test code = BA%) 0.4 % 0.1-1.0 N NEUTROPHIL # (test code = NT#) 7.4 K/mm3 LYMPHOCYTE # (test code = LY#) 1.7 K/mm3 MONOCYTE # (test code = MO#) 0.7 K/mm3 EOSINOPHIL # (test code = EO#) 0.06 K/mm3 BASOPHIL # (test code = BA#) 0.0 K/mm3 RBC MORPHOLOGY REQUIRED (test code NORMAL NORMAL = RBCM) PLATELET MORPHOLOGY REQUIRED (test NORMAL NORMAL code = PLTMR)
[2021-03-06 12:05] LABS: Protime INR 1.08
[2021-03-06 12:07] LABS: Absolute Lymphocytes (CBC) 1.7 K/uL (0.7-4.9); Basophils % 0.8 % (0-1.3); Hematocrit 34.5 % (36.0-45.0); Lymphocytes % 32.8 % (15.3-44.8); MPV 9.1 fL (7.6-11.3); RBC Red Blood Cell Count 4.24 M/uL (3.86-4.86)
[2021-03-06 12:20] LABS: ALT/SGPT 42 U/L (12-78); AST/SGOT 22 U/L (15-37); Albumin 3.6 g/dL (3.4-5.0); Alkaline Phosphatase 84 U/L (45-117); BUN Blood Urea Nitrogen 13 mg/dL (7-18); Bicarbonate 23 mmol/L (21-32); Bilirubin Direct < 0.1 mg/dL (0-0.2); Bilirubin Total 0.3 mg/dL (0.2-1.0); Glucose Level 127 mg/dL (74-106); NT PRO-BNP 26 pg/mL (<125); Potassium 3.9 mmol/L (3.5-5.1); Protein, Total 7.5 g/dL (6.4-8.2); Sodium Level 141 mmol/L (136-145); Troponin (Emerg Dept Use Only) < 0.02 ng/mL (0.0-0.045)
--- NOTE | 2021-03-06 12:21 | RAD REPORT ---
EXAM DESCRIPTION: RAD - Chest Single View - 03/06/2021 12:16 pm CLINICAL HISTORY: CHEST PAIN COMPARISON: Chest Single View dated 04/15/2019; Chest Single View dated 05/29/2018 FINDINGS: Lines: None. Lungs: No evidence of edema or pneumonia. Pleural: No significant pleural effusions or pneumothorax. Cardiac: The heart size is within normal limits. Bones: No acute fractures. Other: IMPRESSION: No acute cardiopulmonary disease.
[2021-03-06 13:01] LABS: Urine Blood Trace-intact (Negative); Urine Glucose Negative (Negative); Urine Protein 2+ (Negative); Urine Specific Gravity >=1.030 (1.005-1.030); Urine pH 6.5 (5.0-7.0)
--- NOTE | 2021-03-06 13:44 | RAD REPORT ---
EXAM DESCRIPTION: CT - Chest For Pe Angio - 03/06/2021 1:26 pm CLINICAL HISTORY: CHEST PAIN COMPARISON: Chest For Pe Angio dated 05/29/2018; Chest Single View dated 03/06/2021 TECHNIQUE: Dynamically enhanced 3 mm thick images of the chest were obtained during administration o f approximately 150mL Isovue 370 IV contrast. Coronal and oblique MIP reconstruction images were gene rated and reviewed. Exam utilizes a protocol to evaluate the pulmonary arterial tree. All CT scans are performed using dose optimization technique as appropriate and may include automated exposure control or mA/KV adjustment according to patient size. FINDINGS: No pulmonary emboli are identified. The aorta as imaged shows no acute or suspicious finding. No pericardial thickening or effusion. No infiltrate or mass in the lung parenchyma. No pleural effusion or pleural thickening. No mediastinal or hilar suspicious masses. No chest wall masses or abnormal axillary lymphadenopathy. IMPRESSION: No pulmonary emboli identified. No other significant or suspicious findings.
[2021-03-06 13:45] LABS: Urine Specific Gravity/Preg >1.030 (1.005-1.030)
[2021-03-06] MEDS ORDERED: dexAMETHasone 10 MG/ML VIAL ONE (14:26)
--- NOTE | 2021-03-06 14:33 | ER ---
Nurse's Notes [facility] Name: Oscar Gong Age: 20 yrs Sex: Female : 2000 Arrival Date: 03/06/2021 Time: 11:14 Bed 5 Private MD: Garry Ibarra S Diagnosis: Chest pain, unspecified;Systemic lupus erythematosus, unspecified Presentation: 03/06 11:19 Chief complaint: Patient states: i am having chest pain. i woke up for work about 430. tw2 then started having chest pain. its a tight, like an elephant sitting. when i was driving to work my eyes started to hurt and get blurry. Coronavirus screen: At this time, the client does not indicate any symptoms associated with coronavirus-19. Ebola Screen: Patient denies travel to an Ebola-affected area in the 21 days before illness onset. Initial Sepsis Screen: Does the patient meet any 2 criteria? No. Patient's initial sepsis screen is negative. Does the patient have a suspected source of infection? No. Patient's initial sepsis screen is negative. Initial Sepsis Screen: Does the patient meet any 2 criteria?. Risk Assessment: Do you want to hurt yourself or someone else? Patient reports no desire to harm self or others. Onset of symptoms was March 06, 2021. 11:19 Method Of Arrival: Ambulatory tw2 11:19 Acuity: DAVID 3 tw2 Triage Assessment: 11:25 General: Appears in no apparent distress. Behavior is calm, cooperative, appropriate tw2 for age. Pain: Complains of pain in chest. Cardiovascular: Chest pain quality is heaviness, pressure. [employer]: 12:31 2, Full Term 1, 1, Living 0, LMP 02/25/2021 ll3 Historical: - Allergies: 11:21 Codeine; tw2 - Home Meds: 11:21 Hydrochlorothiazide 20 mg Oral 1 cap [Active]; lisinopril 10 mg oral tab 1 tab once tw2 daily [Active]; carvedilol 3.125 mg oral tab 1 tab every 12 hours [Active]; CellCept 500 mg Oral tab 3 tabs 2 times per day [Active]; Plaquenil 200 mg Oral tab 1 tab 2 times per day [Active]; aspirin 81 mg oral tab 81 mg daily [Active]; - PMHx: 11:21 Hypertension; Lupus; "class 5, Lupus nephritis"; mass in chest on ct while ; tw2 - PSHx: 11:21 Cholecystectomy; section; tw2 - Immunization history:: Adult Immunizations not immunized. - Social history:: Smoking status: Patient denies any tobacco usage or history of. - Family history:: not pertinent. - Hospitalizations: : No recent hospitalization is reported. Screenin:56 Abuse screen: Denies injuries from another. Nutritional screening: No deficits noted. ll3 Tuberculosis screening: No symptoms or risk factors identified. Fall Risk No fall in past 12 months (0 pts). IV access (20 points). Gait- Normal/Bed Rest/Wheelchair (0 pts). Assessment: 11:56 General: Appears in no apparent distress. uncomfortable, Behavior is calm, cooperative. ll3 Pain: Complains of pain in xiphoid area Pain radiates to anterior aspect of right upper chest and mid-sternal area Pain currently is 6 out of 10 on a pain scale. Quality of pain is described as pressure, Pain began 0530 this morning Is continuous. Neuro: Level of Consciousness is awake, alert, Oriented to person, place, time, situation, Speech is normal, Facial symmetry appears normal. Cardiovascular: Patient's skin is warm and dry. Chest pain is described as Pain is 6 out of 10 on a pain scale. quality is pressure, began at 0530 this morning episodes are continuous. Respiratory: Airway is patent Trachea midline Respiratory effort is even, unlabored, Respiratory pattern is regular, symmetrical. GI: Abdomen is flat, round. : No signs and/or symptoms were reported regarding the genitourinary system. Derm: Skin is intact, is healthy with good turgor, Skin is pink, warm \\T\\ dry. Musculoskeletal: No deficits noted. 13:00 Reassessment: Patient appears in no apparent distress at this time. No changes from ll3 previously documented assessment. Patient is alert, oriented x 3, equal unlabored respirations, skin warm/dry/pink. 14:39 Reassessment: Patient appears in no apparent distress at this time. Patient is alert, ll3 oriented x 3, equal unlabored respirations, skin warm/dry/pink. Patient denies pain at this time. Patient states feeling better. Patient states symptoms have improved. Vital Signs: 11:19 BP 147 / 81; Pulse 87; Resp 17; Temp 97.8(TE); Pulse Ox 100% on R/A; Weight 92.08 kg tw2 (R); Height 5 ft. 2 in. (157.48 cm); Pain 6/10; 12:15 BP 134 / 75; Pulse 86; Resp 20; Pulse Ox 100% ; ll3 12:40 BP 113 / 61; Pulse 88; Resp 17; Pulse Ox 98% ; jl7 13:42 BP 120 / 70; Pulse 75; Resp 15; Pulse Ox 100% ; jl7 14:30 BP 122 / 63; Pulse 82; Resp 20; Pulse Ox 100% ; ll3 11:19 Body Mass Index 37.13 (92.08 kg, 157.48 cm) tw2 ED Course: 11:14 Patient arrived in ED. mr 11:14 Garry Ibarra MD is Private Physician. mr 11:20 Wes Brandon MD is Attending Physician. rn 11:21 Triage completed. tw2 11:25 Arm band placed on. tw2 11:30 Nilay Figueroa, RN is Primary Nurse. as6 11:55 Emi Phillips, [place] is Primary Nurse. ll3 11:55 Initial lab(s) drawn, by me, sent to lab. EKG done, by ED staff, reviewed by Wes Brandon MD. Inserted saline lock: 20 gauge in right antecubital area, using aseptic technique. Blood collected. Patient maintains SpO2 saturation greater than 95% on room air. 11:56 Patient has correct armband on for positive identification. Bed in low position. Call ll3 light in reach. Side rails up X 1. lunchroom monitor on. Pulse ox on. NIBP on. 12:16 XRAY Chest (1 view) In Process Unspecified. EDMS 13:26 CT Chest For PE Angio In Process Unspecified. EDMS 14:39 No provider procedures requiring assistance completed. IV discontinued, intact, ll3 bleeding controlled, No redness/swelling at site. Pressure dressing applied. Administered Medications: 14:41 Drug: Decadron - Dexamethasone 10 mg Route: IVP; Site: right antecubital; ll3 14:47 Follow up: Response: No adverse reaction ll3 Outcome: 14:32 Discharge ordered by . rn 14:39 Discharged to home ambulatory, with family. ll3 14:39 Condition: improved 14:39 Discharge instructions given to patient, Instructed on discharge instructions, follow up and referral plans. medication usage, Demonstrated understanding of instructions, follow-up care, medications, Prescriptions given X 1. 14:53 Patient left the ED. ll3 Signatures: Dispatcher [employer] [facility] Jody CorbinWes MD MD rn Wise, Tara RN RN tw2 Neva Palma RN RN jl7 Nilay Figueroa RN RN as6 Emi Phillips RN RN ll3
--- NOTE | 2021-03-06 14:33 | EDPHYS ---
Physician Documentation [facility] Name: Oscar Gong Age: 20 yrs Sex: Female : 2000 Arrival Date: 03/06/2021 Time: 11:14 Bed 5 Private MD: Garry Ibarra S ED Physician Wes Brandon HPI: 03/06 13:31 This 20 yrs old Female presents to ER via Ambulatory with complaints of Chest rn Pain. 13:31 The patient or guardian reports chest pain that is located primarily in the substernal rn area. The pain does not radiate. Associated signs and symptoms: Pertinent positives: cough, Pertinent negatives: abdominal pain, dizziness, near syncope, palpitations, shortness of breath, syncope, vomiting. The chest pain is described as aching. Duration: The patient or guardian reports multiple episodes, that are intermittent, the episodes last approximately 10 minute(s). Modifying factors: The symptoms are alleviated by nothing. the symptoms are aggravated by nothing. Severity of pain: At its worst the pain was mild in the emergency department the pain has improved. The patient has experienced a previous episode. The patient has not recently seen a physician. Patient reports sudden onset of chest pain, substernal, began at 430 this morning, intermittent and lasting 10 minutes each episode. No radiation. No shortness of breath. No trauma. Reports getting over a cough/cold recently. Patient with lupus and takes all of her medication. This is happened once before and CT showed nonspecific mass in mediastinum that was never biopsied and subsequently disappeared.. HR INTERN: 12:31 2, Full Term 1, 1, Living 0, LMP 02/25/2021 ll3 Historical: - Allergies: 11:21 Codeine; tw2 - Home Meds: 11:21 Hydrochlorothiazide 20 mg Oral 1 cap [Active]; lisinopril 10 mg oral tab 1 tab once tw2 daily [Active]; carvedilol 3.125 mg oral tab 1 tab every 12 hours [Active]; CellCept 500 mg Oral tab 3 tabs 2 times per day [Active]; Plaquenil 200 mg Oral tab 1 tab 2 times per day [Active]; aspirin 81 mg oral tab 81 mg daily [Active]; - PMHx: 11:21 Hypertension; Lupus; "class 5, Lupus nephritis"; mass in chest on ct while ; tw2 - PSHx: 11:21 Cholecystectomy; section; tw2 - Immunization history:: Adult Immunizations not immunized. - Social history:: Smoking status: Patient denies any tobacco usage or history of. - Family history:: not pertinent. - Hospitalizations: : No recent hospitalization is reported. ROS: 13:31 Constitutional: Negative for fever, chills, and weight loss, Eyes: Negative for injury, rn pain, redness, and discharge, Neck: Negative for injury, pain, and swelling, Cardiovascular: Negative for palpitations, and edema, Respiratory: Negative for shortness of breath, cough, wheezing Abdomen/GI: Negative for abdominal pain, nausea, vomiting, diarrhea, and constipation, Back: Negative for injury and pain, : Negative for injury, bleeding, discharge, and swelling, MS/Extremity: Negative for injury and deformity, Skin: Negative for injury, rash, and discoloration, Neuro: Negative for headache, weakness, numbness, tingling, and seizure. 13:31 All other systems are negative. Exam: 13:31 Constitutional: This is a well developed, well nourished patient who is awake, alert, rn and in no acute distress. Head/Face: Normocephalic, atraumatic. Eyes: Periorbital areas with no swelling, redness, or edema. Cardiovascular: Regular rate and rhythm. No pulse deficits. Respiratory: No increased work of breathing, no retractions or nasal flaring. Abdomen/GI: Soft, non-tender Skin: Warm, dry MS/ Extremity: Pulses equal, no cyanosis. Neurovascular intact. Full, normal range of motion. Equal circumference. Neuro: Awake and alert, GCS 15 Vital Signs: 11:19 BP 147 / 81; Pulse 87; Resp 17; Temp 97.8(TE); Pulse Ox 100% on R/A; Weight 92.08 kg tw2 (R); Height 5 ft. 2 in. (157.48 cm); Pain 6/10; 12:15 BP 134 / 75; Pulse 86; Resp 20; Pulse Ox 100% ; ll3 12:40 BP 113 / 61; Pulse 88; Resp 17; Pulse Ox 98% ; jl7 13:42 BP 120 / 70; Pulse 75; Resp 15; Pulse Ox 100% ; jl7 14:30 BP 122 / 63; Pulse 82; Resp 20; Pulse Ox 100% ; ll3 11:19 Body Mass Index 37.13 (92.08 kg, 157.48 cm) tw2 MDM: 11:20 Patient medically screened. rn 14:31 Differential diagnosis: acute pericarditis, anxiety, chest wall pain, costochondritis, rn esophagitis, gastroesophageal reflux disease (GERD), pericarditis, pleurisy, pneumonia, pneumothorax, pulmonary embolus, Lupus, pleurisy. Data reviewed: vital signs, nurses notes, lab test result(s), EKG, radiologic studies, CT scan, plain films, and as a result, I will discharge patient. Data interpreted: Pulse oximetry: on room air is 100 %. Interpretation: normal. Counseling: I had a detailed discussion with the patient and/or guardian regarding: the historical points, exam findings, and any diagnostic results supporting the discharge/admit diagnosis, lab results, radiology results, the need for outpatient follow up, to return to the emergency department if symptoms worsen or persist or if there are any questions or concerns that arise at home. Response to treatment: the patient's symptoms have mildly improved after treatment, and as a result, I will discharge patient. Special discussion: Based on the patient's history, exam, and Dx evaluation, there is no indication for emergent intervention or inpatient Tx. It is understood by the patient/guardian that if the Sx's persist or worsen they need to return immediately for re-evaluation. I discussed with the patient/guardian in detail that at this point there is no indication for admission to the hospital. It is understood, however, that if the symptoms persist or worsen the patient needs to return immediately for re-evaluation. ED course: No acute findings in blood or CT chest. Stable vital signs. Normal ECG. Negative troponin. Most likely related to recent illness as well as lupus. We will try a short course of steroids as patient has not been taking her prescribed steroids recently. Recommend rheumatology follow-up.. 03/06 11:38 Order name: Basic Metabolic Panel rn 03/06 11:38 Order name: CBC with Diff rn 03/06 11:38 Order name: LFT's; Complete Time: 12:31 rn 03/06 11:38 Order name: Magnesium; Complete Time: 12:31 rn 03/06 11:38 Order name: NT PRO-BNP; Complete Time: 12:31 rn 03/06 11:38 Order name: PT-INR; Complete Time: 12:31 rn 03/06 11:38 Order name: Troponin (emerg Dept Use Only); Complete Time: 12:31 rn 03/06 11:38 Order name: XRAY Chest (1 view); Complete Time: 12:31 rn 03/06 11:38 Order name: CT Chest For PE Angio; Complete Time: 13:51 rn 03/06 11:39 Order name: Basic Metabolic Panel; Complete Time: 12:31 EDMS 03/06 11:39 Order name: CBC with Automated Diff; Complete Time: 12:31 EDIL 03/06 13:00 Order name: Urine Dipstick-Ancillary; Complete Time: 13:51 EDIL 03/06 13:01 Order name: Urine --Ancillary (enter results); Complete Time: 13:51 bd 03/06 11:38 Order name: EKG; Complete Time: 11:39 rn 03/06 11:38 Order name: Cardiac monitoring; Complete Time: 11:54 rn 03/06 11:38 Order name: EKG - Nurse/Tech; Complete Time: 11:54 rn 03/06 11:38 Order name: IV Saline Lock; Complete Time: 11:54 rn 03/06 11:38 Order name: Labs collected and sent; Complete Time: 11:54 rn 03/06 11:38 Order name: O2 Per Protocol; Complete Time: 11:54 rn 03/06 11:38 Order name: O2 Sat Monitoring; Complete Time: 11:54 rn 03/06 11:38 Order name: Urine Dipstick-Ancillary (obtain specimen); Complete Time: 13:04 rn 03/06 11:38 Order name: Urine Test (obtain specimen); Complete Time: 13:04 rn Administered Medications: 14:41 Drug: Decadron - Dexamethasone 10 mg Route: IVP; Site: right antecubital; ll3 14:47 Follow up: Response: No adverse reaction ll3 Disposition Summary: 03/06/21 14:32 Discharge Ordered Location: Home rn Problem: new rn Symptoms: have improved rn Condition: Stable rn Diagnosis - Chest pain, unspecified rn - Systemic lupus erythematosus, unspecified rn Followup: rn - With: Private Physician - When: As needed - Reason: Recheck today's complaints, Re-evaluation by your physician Discharge Instructions: - Discharge Summary Sheet rn - Nonspecific Chest Pain, Adult rn - Systemic Lupus Erythematosus, Adult rn - Pain Without a Known Cause rn Forms: - Medication Reconciliation Form rn - Thank You Letter rn - Antibiotic pattern drafter - Prescription Opioid Use rn Prescriptions: - Medrol (Twin) 4 mg Oral Tablets, Dose Pack - take 1 tablet by ORAL route as directed - follow package instructions; 1 rn packet; Refills: 0, Product Selection Permitted Signatures: Dispatcher [employer] EDWes Guerra MD MD rn Wise, Tara RN RN tw2 Emi Phillips RN RN ll3
[2021-03-06 15:45] VITALS: TEMP 97.8
[2021-03-06 15:49] VITALS: O2SAT 100
[2021-03-06 15:50] VITALS: BP 122/63
--- NOTE | 2021-03-07 16:55 | EKG ---
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
== END 2021-03-06 14:53 | disposition home or self-care (01) ==
LOC: ER 11:11
DX: M32.9 Systemic lupus erythematosus, unspecified (principal); I10 Essential (primary) hypertension; Z79.82 Long term (current) use of aspirin; Z88.5 Allergy status to narcotic agent
CPT/HCPCS: 93005; 85025; 80048; 36415; 83735; 81025; 85610; 80076; 81003; 84484; 83880; 71275; 71045; 96374; 99285; Q9967; J1100